=== PATIENT | male | born 1970 | race Caucasian/White ===

== ENCOUNTER 2017-12-01 19:06 | Inpatient (IN) | payer MEDICARE, OTHER ==
[2017-12-01 19:07] VITALS: BMI 27.6
--- NOTE | 2017-12-01 19:50 | ED PDOC ---
HPI: SOB/CHF/COPD Time Seen by Provider: 12/01/17 19:34 Chief Complaint (Nursing): Chest Pain Chief Complaint (Provider): SOB History Per: Patient Additional Complaint(s): 47 yo male, reports a PMH of CHF and notes being on a heart transplant list in [place], presents to ED with complaints of SOB and b/l LE pain x 2 days now. Pt reports pain is worse to LLE. Pt denies any CP or palpitations. No diaphoresis, nausea or vomiting. Pt on monitoring coordinator at bedside, vitals stable while in ED. POX: 100% on RA P: 79 BP: 118/80 Past Medical History Reviewed: Nursing Documentation, Vital Signs Vital Signs: Last Vital Signs Temp 98.4 F 12/01/17 19:30 Pulse 96 H 12/01/17 19:30 Resp 18 12/01/17 19:30 BP 108/78 12/01/17 19:30 Pulse Ox 95 12/01/17 19:30 - Medical History PMH: CHF - Surgical History Surgical History: Pacemaker - Family History Family History: States: Unknown Family Hx - Social History Current smoker - smoking cessation education provided: No Ex-Smoker (has not smoked in the last 12 months): Yes Alcohol: None Drugs: Denies - Allergies Allergies/Adverse Reactions: Allergies Allergy/AdvReac Type Severity Reaction Status Date / Time No Known Allergies Allergy Unverified 12/01/17 19:33 Curb-65 Severity Score - CURB-65 Severity Score Confusion: No Bun >19mg/dl (>7mmol/L): No Respiratory Rate greater than/equal to 30: No Systolic BP <90 or Diastolic BP less than/equal 60mmHg: No Age >64: No Curb-65 Score: 0 Percentage 30-day mortality: 0.6% Wells Criteria for PE - Wells Criteria for Pulmonary Embolism Clinical Signs and Symptoms of DVT: Yes P.E is #1 Diagnosis, or Equally Likely: No Heart Rate >100: No Immobilization at least 3 days;Surgery previous 4 weeks: No Previous, objectively diagnosed PE or DVT: No Hemoptysis: No Malignancy w/treatment within 6 months, or palliative: No Total Score: 3 Review of Systems ROS Statement: Except As Marked, All Systems Reviewed And Found Negative Respiratory: Positive for: Shortness of Breath Physical Exam - Reviewed Nursing Documentation Reviewed: Yes Vital Signs Reviewed: Yes - Physical Exam Appears: Positive for: Non-toxic, No Acute Distress, Uncomfortable Head Exam: Positive for: ATRAUMATIC, NORMAL INSPECTION, NORMOCEPHALIC Skin: Positive for: Normal Color, Warm, DRY Eye Exam: Positive for: EOMI, Normal appearance, PERRL ENT: Positive for: Normal ENT Inspection Neck: Positive for: Normal, Painless ROM Cardiovascular/Chest: Positive for: Regular Rate, Rhythm Respiratory: Positive for: CNT, Normal Breath Sounds Gastrointestinal/Abdominal: Positive for: Normal Exam, Soft Back: Positive for: Normal Inspection Extremity: Positive for: Normal ROM Neurologic/Psych: Positive for: Alert, Oriented - ECG O2 Sat by Pulse Oximetry: 95 Medical Decision Making Medical Decision Making: RX database accessed: No information found Diagnostics ordered and case endorsed to GILL Walters at 2000 pending re-eval Disposition - Clinical Impression Clinical Impression: Chest pain - Patient ED Disposition Is Patient to be Admitted: Transfer of Care - Disposition Disposition: Transfer of Care Disposition Time: 20:06 Condition: STABLE
[2017-12-01 20:33] LABS: BASO # 0.1 K/uL (0.0-0.2); BASO % 1.2 % (0.0-2.0); EOS # 0.1 K/uL (0.0-0.7); EOS % 0.9 % (0.0-4.0); LYMPH % 16.7 % (20.0-40.0); MEAN CORPUSCULAR HEMOGLOBIN 24.6 pg (27.0-31.0); MEAN CORPUSCULAR HGB CONC 31.6 g/dL (33.0-37.0); MEAN PLATELET VOLUME 9.6 fl (7.2-11.7); MONO # 1.1 K/uL (0.0-0.8); MONO % 9.6 % (0.0-10.0); NEUT # 8.5 K/uL (1.8-7.0); NEUT % 71.6 % (50.0-75.0); NRBC % 0.2 % (0.0-0.0); RBC 5.69 Mil/uL (4.40-5.90); RED CELL DISTRIBUTION WIDTH 21.6 % (11.5-14.5); WHITE BLOOD COUNT 11.9 K/uL (4.8-10.8)
[2017-12-01 20:38] LABS: INR 1.5; PROTHROMBIN TIME 17.2 Seconds (9.8-13.1)
[2017-12-01 20:41] LABS: PARTIAL THROMBOPLASTIN TIME 40.3 Seconds (25.6-37.1)
[2017-12-01 20:45] LABS: ALB/GLOB RATIO 0.8 (1.0-2.1); ALBUMIN 4.1 g/dL (3.5-5.0); ALT/SGPT 31 U/L (21-72); AST/SGOT 47 U/L (17-59); BLOOD UREA NITROGEN 22 mg/dl (9-20); CALCIUM 9.5 mg/dL (8.4-10.2); GFR NON-AFRICAN AMERICAN 54
[2017-12-01 20:57] LABS: B-TYPE NATRIURETIC PEPTIDE 3300 pg/ml (0-450)
[2017-12-01 21:01] LABS: BARBITURATES, UR NEGATIVE (NEGATIVE); BENZODIAZEPINES, UR NEGATIVE (NEGATIVE); OPIATES, UR NEGATIVE (NEGATIVE); PHENCYCLIDINE, UR NEGATIVE (NEGATIVE)
--- NOTE | 2017-12-01 21:30 | ED PDOC ---
- Laboratory Results Result Diagrams: 12/01/17 20:25 12/01/17 20:25 - ECG O2 Sat by Pulse Oximetry: 95 - Radiology X-Ray: Viewed By Me X-Ray Interpretation: Cardiomegaly - Progress ED Course And Treament: Case endorsed to global technical writer from Jessica GARLAND pending labs, re-eval CT angio chest ordered fo relevated D Dimer EXAM: CT Angiography Chest With Intravenous Contrast EXAM DATE/TIME: 12/01/2017 9:29 PM CLINICAL HISTORY: 47 years old, male; Signs and symptoms; Shortness of breath; Prior surgery; Surgery date: 6+ months; Additional info: SOB TECHNIQUE: Axial computed tomographic angiography images of the chest with intravenous contrast using CT angiography protocol. All CT scans at this facility use at least one of these dose optimization techniques: automated exposure control; mA and/or kV adjustment per patient size (includes targeted exams where dose is matched to clinical indication); or iterative reconstruction. MIP reconstructed images were created and reviewed. CONTRAST: 100 ml of visipaque-320 administered intravenously. COMPARISON: No relevant prior studies available. FINDINGS: Pulmonary arteries: Normal. No pulmonary emboli. Aorta: Normal. No aortic aneurysm. No aortic dissection. Lungs: Normal. No consolidation. No masses. Pleural space: Normal. No pneumothorax. No pleural effusion. Heart: Cardiomegaly is identified. Bones/joints: Unremarkable. No acute fracture. Soft tissues: Unremarkable. Lymph nodes: There is right paratracheal and AP window mediastinal adenopathy. IMPRESSION: There is no evidence for a pulmonary embolus. There is mediastinal adenopathy. This may be reactive although a malignancy would also be a consideration.Clinical correlation is advised. IV Lasix dose ordered Case discussed with Dr. Baires, Hospitalist on-call, for placement in observation telemetry for CHF exacerbation Disposition - Clinical Impression Clinical Impression: CHF exacerbation - POA Present On Arrival: None - Disposition Disposition: Hospitalized as Observation Patient Disposition Time: 23:59 Condition: FAIR Forms: [employer] (Latvian)
[2017-12-01] MEDS ORDERED: Sodium Chloride 0.9% 50 ML IV ONE (22:28)
[2017-12-01] MEDS ORDERED: Iodixanol 320 MG/ML 100 ML BOTTLE IV ONE (22:28)
--- NOTE | 2017-12-02 02:02 | CP.PCM.HP ---
<Lyndsey Pelayo - Last Filed: 12/02/17 03:03> History of Present Illness - History of Present Illness History of Present Illness: 47 yr old M presented to ED with complaint of worsening SOB and bilateral lower extremity swelling x 1 day. PMHx includes systolic CHF (most recent EF 15%) s/p AICD, HTN, hx recent cutaneous MRSA infection, LLE DVT (took Eliquis 8 months ago). Patient reports he flew in from [place] 4 days ago. Denies any increased sodium or condiment intake in diet, denies increase in baseline fluid intake. Denies chest pain, fevers, chills, nausea, vomiting, weakness or dizziness. Patient states he is on the heart transplant list in [place], but will in [place] until December 2017-possibly will move here. States he is compliant with all his medications. Patient reports chronic yellowing of eyes with negative workup. PMD: patient could not recall-in [place] Adult Care Manager: Edelmira Quezada ([phone])-[place], [place] PMHx: systolic CHF-NYHA class IV/ACC AHA stage D (most recent EF 15%) s/p AICD, HTN, hx recent cutaneous MRSA infection, LLE DVT (took Eliquis 8 months ago), chronic scleral icterus SurgHx: AICD, right ankle arthroscopic surgery FMHx: mother with questionable heart disease, father of prostate cancer at 67yrs old, sibiling healthy, maternal grandmother from [place] at 57yrs old SocHx: former tobacco abuser 15 pack yrs (quit 5 yrs ago); denies Etoh or drugs ; living with mother and brother Medications: Bumetanide 2mg tab PO QD, Digoxin 125 mcg PO QD, Isosorbide dinitrate 20 mg PO TID, Metoprolol Succinate 25mg PO QD, Hydralazine (unknown dose), Milrinone drip (changes bag every 3 days) -will confirm medications with pharmacy in [place] ) Allergies: NKDA Code status: Full code Emergency contact/decision maker: Shreya Zamora (mother) [phone] ER course: BP 108/78 mmHg, HR 96, Temp 98.4 F , Resp rate 18, SpO2 sat 95 % on room air -CBC: WBC 11.9, neutrophil % 71.6; rest wnl -INR 1.5, PT 17.2, PTT 40.3, D-dimer 905 -CMP: BUN 22/Cr 1.4, total bili 4.2, alk phos 178, rest wnl -proBNP 3,300 -Utox negative, troponin 0.04 -EKG: NSR at 98 bpm, right axis deviation, incomplete RBBB, inferior infarct- age undetermined -CXR: official report pending (prelim: cardiomegaly, pulmonary congestion) -CT angio PE protocol: no evidence of PE; there is mediastinbal adenopathy -ER treatment: Alteplase 2mg IV once, Lasix 40mg IV once, Morphine 4mg IV once, Morphine 2mg IV once, Tylenol 650mg PO once Present on Admission - Present on Admission Any Indicators Present on Admission: Yes History of DVT/PE: Yes History of Uncontrolled Diabetes: No Urinary Catheter: No Decubitus Ulcer Present: No History Surgical Site Infection Following: None Review of Systems - Constitutional Constitutional: absent: Chills, Fever, Weakness - EENT Eyes: absent: Change in Vision Nose/Mouth/Throat: absent: Tongue Swelling - Cardiovascular Cardiovascular: Dyspnea, Leg Edema. absent: Chest Pain, Syncope - Respiratory Respiratory: absent: Cough, Hemoptysis, Wheezing - Gastrointestinal Gastrointestinal: absent: Abdominal Pain, Nausea, Vomiting - Genitourinary Genitourinary: absent: Difficulty Urinating, Dysuria - Musculoskeletal Musculoskeletal: Other (chronic bilateral LE pain) - Integumentary Integumentary: Wounds (MRSA wounds healed-arms/neck/abdomen) - Neurological Neurological: absent: Confusion, Dizziness, Syncope, Weakness - Endocrine Endocrine: absent: Polydipsia, Polyphagia, Polyuria - Hematologic/Lymphatic Hematologic: absent: Easy Bleeding, Easy Bruising Past Patient History - Past Social History Smoking Status: Never Smoked - CARDIAC Hx Congestive Heart Failure: Yes Hx Pacemaker: Yes - PSYCHIATRIC Hx Substance Use: No Meds Allergies/Adverse Reactions: Allergies Allergy/AdvReac Type Severity Reaction Status Date / Time No Known Allergies Allergy Unverified 12/01/17 19:33 Physical Exam - Constitutional Appears: No Acute Distress - Head Exam Head Exam: ATRAUMATIC, NORMOCEPHALIC - Eye Exam Eye Exam: EOMI, PERRL, Scleral icterus - ENT Exam ENT Exam: Mucous Membranes Moist - Neck Exam Neck exam: Positive for: Full Rom. Negative for: Lymphadenopathy - Respiratory Exam Respiratory Exam: Clear to Auscultation Bilateral, NORMAL BREATHING PATTERN. absent: Rales, Rhonchi, Wheezes - Cardiovascular Exam Cardiovascular Exam: REGULAR RHYTHM, +S1, +S2. absent: Systolic Murmur - GI/Abdominal Exam GI & Abdominal Exam: Normal Bowel Sounds, Soft (obese). absent: Tenderness Additional comments: multiple healed small hyperpigmented papules - Extremities Exam Extremities exam: Positive for: pedal edema (pitting +2), pedal pulses present ( DP and PT bilateral-normal). Negative for: calf tenderness, tenderness - Neurological Exam Neurological exam: Alert, CN II-XII Intact, Oriented x3 - Psychiatric Exam Psychiatric exam: Normal Affect, Normal Mood - Skin Skin Exam: Dry, Rash (healed hyperpigmented papular rash (neck/abdomen and arms) ), Warm Results - Vital Signs Recent Vital Signs: Last Vital Signs Temp 98.9 F 12/02/17 00:34 Pulse 98 H 12/02/17 00:34 Resp 18 12/02/17 00:34 BP 124/78 12/02/17 00:34 Pulse Ox 93 L 12/02/17 00:34 - Labs Result Diagrams: 12/01/17 20:25 12/01/17 20:25 Labs: Laboratory Results - last 24 hr 12/01/17 12/01/17 12/01/17 20:25 20:25 20:25 WBC 11.9 H RBC 5.69 Hgb 14.0 Hct 44.4 MCV 78.0 L MCH 24.6 L MCHC 31.6 L RDW 21.6 H Plt Count 264 MPV 9.6 Neut % (Auto) 71.6 Lymph % (Auto) 16.7 L [place] % (Auto) 9.6 Eos % (Auto) 0.9 Baso % (Auto) 1.2 Neut # (Auto) 8.5 H Lymph # (Auto) 2.0 [place] # (Auto) 1.1 H Eos # (Auto) 0.1 Baso # (Auto) 0.1 PT 17.2 H INR 1.5 APTT 40.3 H D-Dimer, Quantitative 905 H Sodium 140 Potassium 5.0 Chloride 107 Carbon Dioxide 18 L Anion Gap 20 BUN 22 H Creatinine 1.4 Est GFR ( Amer) > 60 Est GFR (Non-Af Amer) 54 Random Glucose 120 H Calcium 9.5 Total Bilirubin 4.2 H AST 47 ALT 31 Alkaline Phosphatase 178 H Troponin I 0.0440 NT-Pro-B Natriuret Pep 3300 H Total Protein 9.0 H Albumin 4.1 Globulin 4.9 H Albumin/Globulin Ratio 0.8 L Urine Opiates Screen Urine Methadone Screen Ur Barbiturates Screen Ur Phencyclidine Scrn Ur Amphetamines Screen U Benzodiazepines Scrn U Oth Cocaine Metabols U Cannabinoids Screen 12/01/17 20:30 WBC RBC Hgb Hct MCV MCH MCHC RDW Plt Count MPV Neut % (Auto) Lymph % (Auto) [place] % (Auto) Eos % (Auto) Baso % (Auto) Neut # (Auto) Lymph # (Auto) [place] # (Auto) Eos # (Auto) Baso # (Auto) PT INR APTT D-Dimer, Quantitative Sodium Potassium Chloride Carbon Dioxide Anion Gap BUN Creatinine Est GFR ( Amer) Est GFR (Non-Af Amer) Random Glucose Calcium Total Bilirubin AST ALT Alkaline Phosphatase Troponin I NT-Pro-B Natriuret Pep Total Protein Albumin Globulin Albumin/Globulin Ratio Urine Opiates Screen Negative Urine Methadone Screen Negative Ur Barbiturates Screen Negative Ur Phencyclidine Scrn Negative Ur Amphetamines Screen Negative U Benzodiazepines Scrn Negative U Oth Cocaine Metabols Negative U Cannabinoids Screen Negative Assessment & Plan - Assessment and Plan (Free Text) Assessment: 47 yr old M admitted for CHF exacerbation with PMHx including systolic CHF-NYHA class IV/ACC AHA stage D (most recent EF 15%) s/p AICD, HTN, hx recent cutaneous MRSA infection, LLE DVT (took Eliquis 8 months ago), chronic scleral icterus. Acute CHF exacerbation-systolic -hx systolic CHF NYHA class IV/ACC AHA stage D (most recent EF 15%); unknown etiology per patient: on heart transplant list in [place] -admit to telemetry -continue home medications (will confirm medications with pharmacy in [place] in AM) -Lasix 20mg IV QD, daily weight, f/u echocardiogram -Cardiology consult appreciated: Dr. Victor -heart healthy/low sodium/1250 mL fluid restricted diet Hypertension -chronic, controlled -continue home medications -monitor BP DVT prophylaxis -Lovenox 40 mg SC QD - Date & Time Date: 12/02/17 Time: 02:02 <Tim Baires - Last Filed: 12/02/17 05:04> Results - Vital Signs Recent Vital Signs: Last Vital Signs Temp 97 F L 12/02/17 02:30 Pulse 105 H 12/02/17 03:52 Resp 12 12/02/17 03:13 BP 126/82 12/02/17 03:52 Pulse Ox 95 12/02/17 03:13 - Labs Result Diagrams: 12/01/17 20:25 12/01/17 20:25 Labs: Laboratory Results - last 24 hr 12/01/17 12/01/17 12/01/17 20:25 20:25 20:25 WBC 11.9 H RBC 5.69 Hgb 14.0 Hct 44.4 MCV 78.0 L MCH 24.6 L MCHC 31.6 L RDW 21.6 H Plt Count 264 MPV 9.6 Neut % (Auto) 71.6 Lymph % (Auto) 16.7 L [place] % (Auto) 9.6 Eos % (Auto) 0.9 Baso % (Auto) 1.2 Neut # (Auto) 8.5 H Lymph # (Auto) 2.0 [place] # (Auto) 1.1 H Eos # (Auto) 0.1 Baso # (Auto) 0.1 PT 17.2 H INR 1.5 APTT 40.3 H D-Dimer, Quantitative 905 H Sodium 140 Potassium 5.0 Chloride 107 Carbon Dioxide 18 L Anion Gap 20 BUN 22 H Creatinine 1.4 Est GFR ( Amer) > 60 Est GFR (Non-Af Amer) 54 Random Glucose 120 H Calcium 9.5 Total Bilirubin 4.2 H AST 47 ALT 31 Alkaline Phosphatase 178 H Troponin I 0.0440 NT-Pro-B Natriuret Pep 3300 H Total Protein 9.0 H Albumin 4.1 Globulin 4.9 H Albumin/Globulin Ratio 0.8 L Urine Opiates Screen Urine Methadone Screen Ur Barbiturates Screen Ur Phencyclidine Scrn Ur Amphetamines Screen U Benzodiazepines Scrn U Oth Cocaine Metabols U Cannabinoids Screen 12/01/17 12/02/17 20:30 03:46 WBC RBC Hgb Hct MCV MCH MCHC RDW Plt Count MPV Neut % (Auto) Lymph % (Auto) [place] % (Auto) Eos % (Auto) Baso % (Auto) Neut # (Auto) Lymph # (Auto) [place] # (Auto) Eos # (Auto) Baso # (Auto) PT INR APTT D-Dimer, Quantitative Sodium Potassium Chloride Carbon Dioxide Anion Gap BUN Creatinine Est GFR ( Amer) Est GFR (Non-Af Amer) Random Glucose Calcium Total Bilirubin AST ALT Alkaline Phosphatase Troponin I 0.0430 NT-Pro-B Natriuret Pep Total Protein Albumin Globulin Albumin/Globulin Ratio Urine Opiates Screen Negative Urine Methadone Screen Negative Ur Barbiturates Screen Negative Ur Phencyclidine Scrn Negative Ur Amphetamines Screen Negative U Benzodiazepines Scrn Negative U Oth Cocaine Metabols Negative U Cannabinoids Screen Negative Attending/Attestation - Attestation I have personally seen and examined this patient.: Yes I have fully participated in the care of the patient.: Yes I have reviewed all pertinent clinical information: Yes Notes (Text): 12/02/17 04:23 I saw and examined this patient shoulder to shoulder with Dr Pelayo. I agree with the assessment and plan which represent my direct input. This is a 47 years old male recent from [place], with End Stage Heart Failure who says that his EF of 15% and that he is on the Heart Transplant list there in [place]. He comes with SOB Palpitation and chest pain for 24hrs along with painful lower extremities, L>R. A&P #. Chest pain most likely from his cardiomyopathy r/o ACS - Consult Cardiology Dr Victor - ECHO for Wall motion - Serial Troponin - Serial EKG - Aspirin #. End Stage Heart Failure with a systolic dysfunction - Cardiology on consult - ECHO for EF, Chamber Size - Continue Milrinone( Consult Pharmacy on the priscription for the Milrinone being usedby Patient) - Metoprolol - Isosorbide Dinitrate - Bumex - Digoxin #. DVT Prophylaxis with Lovenox #. Code Status: Full 12/02/17 05:02 12/02/17 05:04
[2017-12-02] MEDS ORDERED: Pneumococcal 23-Valent Vaccine IM ONE (06:18)
[2017-12-02] MEDS ORDERED: BUMETANIDE 2 MG PO SCH (09:00)
[2017-12-02] MEDS: Digoxin 125 mcg (0.125 mg) Tab PO SCH (09:16)
[2017-12-02] MEDS: Metoprolol Succinate 25 mg XL Tab PO SCH (09:17)
[2017-12-02] MEDS: Enoxaparin 40 mg Syringe SC SCH (09:17)
--- NOTE | 2017-12-02 09:44 | CP.PCM.CON ---
History of Present Illness - History of Present Illness History of Present Illness: 47 yr old M presented to ED with complaint of worsening SOB and bilateral lower extremity swelling x 1 day. PMHx includes systolic CHF (most recent EF 15%) s/p AICD, HTN, hx recent cutaneous MRSA infection, LLE DVT (took Eliquis 8 months ago). Patient reports he flew in from [place] 4 days ago. Denies any increased sodium or condiment intake in diet, denies increase in baseline fluid intake. Denies chest pain, fevers, chills, nausea, vomiting, weakness or dizziness. Patient states he is on the heart transplant list in [place], but will in [place] until December 2017-possibly will move here. States he is compliant with all his medications. Patient reports chronic yellowing of eyes with negative workup. Troponin: neg x 2 BNP: 3300 EKG: IRBBB ?old IWMI Review of Systems - Cardiovascular Cardiovascular: Dyspnea on Exertion, Edema Past Patient History - Infectious Disease Hx of Infectious Diseases: MRSA - Past Medical History & Family History Past Medical History?: Yes - Past Social History Smoking Status: Never Smoked - CARDIAC Hx Cardiac Disorders: Yes Hx Congestive Heart Failure: Yes Hx Pacemaker: Yes - PULMONARY Hx Respiratory Disorders: No - NEUROLOGICAL Hx Neurological Disorder: No - HEENT Hx HEENT Problems: No - RENAL Hx Chronic Kidney Disease: No - ENDOCRINE/METABOLIC Hx Endocrine Disorders: No - HEMATOLOGICAL/ONCOLOGICAL Hx Blood Disorders: No Hx AIDS: No Hx Human Immunodeficiency Virus (HIV): No - INTEGUMENTARY Hx Dermatological Problems: No - MUSCULOSKELETAL/RHEUMATOLOGICAL Hx Musculoskeletal Disorders: No Hx Falls: No - GASTROINTESTINAL Hx Gastrointestinal Disorders: No - GENITOURINARY/GYNECOLOGICAL Hx Genitourinary Disorders: No - PSYCHIATRIC Hx Substance Use: No - SURGICAL HISTORY Hx Surgeries: Yes Hx Orthopedic Surgery: Yes - ANESTHESIA Hx Anesthesia: Yes Hx Anesthesia Reactions: No Hx Malignant Hyperthermia: No Has any member of the family had a problem w/ anesthesia?: No Meds Allergies/Adverse Reactions: Allergies Allergy/AdvReac Type Severity Reaction Status Date / Time No Known Allergies Allergy Unverified 12/01/17 19:33 - Medications Medications: Current Medications Acetaminophen (Tylenol 325mg Tab) 650 mg PO Q6 PRN PRN Reason: Pain, Mild (1-3) Bumetanide (Bumex) 2 mg PO DAILY [facility] Last Admin: 12/02/17 09:17 Dose: 2 mg Digoxin (Digoxin) 0.125 mg PO DAILY [facility] Last Admin: 12/02/17 09:16 Dose: 0.125 mg Enoxaparin Sodium (Lovenox) 40 mg SC DAILY [facility] PRN Reason: Protocol Last Admin: 12/02/17 09:17 Dose: 40 mg Furosemide (Lasix) 20 mg IVP DAILY [facility] Last Admin: 12/02/17 09:12 Dose: 20 mg Isosorbide Dinitrate (Isordil) 20 mg PO TID [facility] Last Admin: 12/02/17 09:16 Dose: 20 mg Ketorolac Tromethamine (Toradol) 30 mg IVP Q6 PRN PRN Reason: Pain, severe (8-10) Last Admin: 12/02/17 09:08 Dose: 30 mg Ketorolac Tromethamine (Toradol) 15 mg IVP Q6 PRN PRN Reason: Pain, moderate (4-7) Metoprolol Succinate (Toprol Xl) 25 mg PO DAILY [facility] Last Admin: 12/02/17 09:17 Dose: 25 mg Physical Exam - Head Exam Head Exam: NORMAL INSPECTION - Eye Exam Eye Exam: Normal appearance - ENT Exam ENT Exam: Normal Exam - Respiratory Exam Respiratory Exam: Decreased Breath Sounds, NORMAL BREATHING PATTERN - Cardiovascular Exam Cardiovascular Exam: REGULAR RHYTHM - Extremities Exam Extremities exam: Positive for: pedal edema Results - Vital Signs Recent Vital Signs: Last Vital Signs Temp 97 F L 12/02/17 08:00 Pulse 89 12/02/17 09:17 Resp 20 12/02/17 08:00 BP 123/62 12/02/17 09:17 Pulse Ox 97 12/02/17 08:00 - Labs Result Diagrams: 12/01/17 20:25 12/01/17 20:25 Labs: Laboratory Results - last 24 hr 12/01/17 12/01/17 12/01/17 20:25 20:25 20:25 WBC 11.9 H RBC 5.69 Hgb 14.0 Hct 44.4 MCV 78.0 L MCH 24.6 L MCHC 31.6 L RDW 21.6 H Plt Count 264 MPV 9.6 Neut % (Auto) 71.6 Lymph % (Auto) 16.7 L [place] % (Auto) 9.6 Eos % (Auto) 0.9 Baso % (Auto) 1.2 Neut # (Auto) 8.5 H Lymph # (Auto) 2.0 [place] # (Auto) 1.1 H Eos # (Auto) 0.1 Baso # (Auto) 0.1 PT 17.2 H INR 1.5 APTT 40.3 H D-Dimer, Quantitative 905 H Sodium 140 Potassium 5.0 Chloride 107 Carbon Dioxide 18 L Anion Gap 20 BUN 22 H Creatinine 1.4 Est GFR ( Amer) > 60 Est GFR (Non-Af Amer) 54 Random Glucose 120 H Calcium 9.5 Total Bilirubin 4.2 H AST 47 ALT 31 Alkaline Phosphatase 178 H Troponin I 0.0440 NT-Pro-B Natriuret Pep 3300 H Total Protein 9.0 H Albumin 4.1 Globulin 4.9 H Albumin/Globulin Ratio 0.8 L Digoxin Urine Opiates Screen Urine Methadone Screen Ur Barbiturates Screen Ur Phencyclidine Scrn Ur Amphetamines Screen U Benzodiazepines Scrn U Oth Cocaine Metabols U Cannabinoids Screen 12/01/17 12/02/17 12/02/17 20:30 03:46 08:00 WBC RBC Hgb Hct MCV MCH MCHC RDW Plt Count MPV Neut % (Auto) Lymph % (Auto) [place] % (Auto) Eos % (Auto) Baso % (Auto) Neut # (Auto) Lymph # (Auto) [place] # (Auto) Eos # (Auto) Baso # (Auto) PT INR APTT D-Dimer, Quantitative Sodium Potassium Chloride Carbon Dioxide Anion Gap BUN Creatinine Est GFR ( Amer) Est GFR (Non-Af Amer) Random Glucose Calcium Total Bilirubin AST ALT Alkaline Phosphatase Troponin I 0.0430 0.0570 NT-Pro-B Natriuret Pep Total Protein Albumin Globulin Albumin/Globulin Ratio Digoxin Urine Opiates Screen Negative Urine Methadone Screen Negative Ur Barbiturates Screen Negative Ur Phencyclidine Scrn Negative Ur Amphetamines Screen Negative U Benzodiazepines Scrn Negative U Oth Cocaine Metabols Negative U Cannabinoids Screen Negative 12/02/17 08:00 WBC RBC Hgb Hct MCV MCH MCHC RDW Plt Count MPV Neut % (Auto) Lymph % (Auto) [place] % (Auto) Eos % (Auto) Baso % (Auto) Neut # (Auto) Lymph # (Auto) [place] # (Auto) Eos # (Auto) Baso # (Auto) PT INR APTT D-Dimer, Quantitative Sodium Potassium Chloride Carbon Dioxide Anion Gap BUN Creatinine Est GFR ( Amer) Est GFR (Non-Af Amer) Random Glucose Calcium Total Bilirubin AST ALT Alkaline Phosphatase Troponin I NT-Pro-B Natriuret Pep Total Protein Albumin Globulin Albumin/Globulin Ratio Digoxin < 0.4 L Urine Opiates Screen Urine Methadone Screen Ur Barbiturates Screen Ur Phencyclidine Scrn Ur Amphetamines Screen U Benzodiazepines Scrn U Oth Cocaine Metabols U Cannabinoids Screen Assessment & Plan (1) Acute on chronic systolic congestive heart failure Assessment and Plan: pt reports he is on transplant list in [place] will get Echo Status: Acute (2) Essential (primary) hypertension Status: Acute (3) DVT (deep venous thrombosis) Status: Acute (4) Hyperbilirubinemia Status: Acute
--- NOTE | 2017-12-02 09:44 | RAD ---
Date of service: 12/01/2017 PROCEDURE: CHEST RADIOGRAPH, 1 VIEW HISTORY: SOB COMPARISON: 01/27/2013 FINDINGS: LUNGS: Clear. PLEURA: No pneumothorax or pleural fluid seen. CARDIOVASCULAR: Heart is moderately enlarged. There is a new right subclavian vein catheter with its tip in the superior vena cava. OSSEOUS STRUCTURES: No significant abnormalities. VISUALIZED UPPER ABDOMEN: Normal. OTHER FINDINGS: None. IMPRESSION: No focal infiltrate or CHF. Moderate cardiomegaly.
--- NOTE | 2017-12-02 10:00 | CARD ---
APPROVED REPORT Date of service: 12/01/2017 EKG Measurement Heart [id number] <Conclusion> Normal sinus rhythm Possible Left atrial enlargement Right superior axis deviation Incomplete right bundle branch block Inferior infarct, age undetermined Prolonged QT Abnormal ECG
--- NOTE | 2017-12-02 12:13 | CT ---
Date of service: 12/01/2017 PROCEDURE: CT Chest with contrast (Pulmonary Angiogram) HISTORY: SOB COMPARISON: None available. TECHNIQUE: Axial computed tomography images were obtained of the chest in the pulmonary arterial phase of enhancement. Coronal and sagittal reformatted images were created and reviewed. Intravenous contrast dose: 100 milliliters visi opaque Radiation dose: Total exam DLP = 363 mGy-cm. This CT exam was performed using one or more of the following dose reduction techniques: Automated exposure control, adjustment of the mA and/or kV according to patient size, and/or use of iterative reconstruction technique. FINDINGS: PULMONARY ARTERIES: No filling defect within the pulmonary arteries is seen to suggest pulmonary artery embolism. AORTA: Aorta is limited by injection timing although no intramural hematoma or intimal flap is clearly seen. LUNGS: Mild interstitial changes and dependent atelectasis are seen. Minor amount of interlobular thickening is seen in the left upper lobe on axial images 39. A few tiny 2 millimeter subpleural nodules are seen in the right upper lobe on image 67. No alveolar infiltrate to suggest an infectious process is seen. No endobronchial lesion is noted. PLEURAL SPACES: Unremarkable. No effusion or pneumothorax. HEART: Heart is moderately enlarged. LYMPH NODES: There is evidence of right paratracheal, precarinal, left para tracheal and prevascular mildly enlarged lymph nodes. These may be reactive in origin but will require further clinical follow-up. No enlarged hilar lymph nodes subcarinal lymph nodes are clearly seen. BONES, CHEST WALL: Bony thorax is intact. No compression fractures seen in the spine. OTHER FINDINGS: Images of the upper abdomen are limited by contrast injection. No focal mass is noted. No ascites is seen. IMPRESSION: No CT scan evidence of pulmonary embolism. Nonspecific mediastinal adenopathy, possibly reactive in origin although will require further clinical follow-up. Short interval follow-up CT scan may prove helpful. Mild interstitial change without focal infiltrate. A few tiny scattered 2 millimeters subpleural nodules. These may postinflammatory in origin. No further imaging workup of these would be suggested in a low risk patient. This agrees with preliminary report provided by the on-call radiologist.
[2017-12-02] MEDS: Sucralfate 1 gm/10 ml Oral Susp UD PO SCH ×4 (14:13→21:26)
--- NOTE | 2017-12-02 14:23 | US ---
Date of service: 12/02/2017 PROCEDURE: Bilateral lower extremity venous duplex Doppler. HISTORY: LE pain, hx DVT COMPARISON: None available. TECHNIQUE: Bilateral common femoral, superficial femoral, popliteal and posterior tibial veins were evaluated. Flow was assessed with color Doppler, compressibility, assessment of phasic flow and augmentation response. FINDINGS: COMMON FEMORAL VEIN: Right CFV: Unremarkable. Left CFV: Unremarkable. SUPERFICIAL FEMORAL VEIN: Right SFV: Unremarkable. Left SFV: Unremarkable. POPLITEAL VEIN: Right Popliteal: Unremarkable. Left Popliteal: Unremarkable. POSTERIOR TIBIAL VEIN: Right PTV: Unremarkable. Left PTV: Unremarkable. OTHER FINDINGS: There is evidence of a mildly complex popliteal fossa cyst measuring 4 centimeters x 1.5 centimeters. Calf edema is also identified on the left. IMPRESSION: No appreciable deep vein thrombosis. No prior studies available for comparison. Lower calf leg swelling.
[2017-12-02 17:18] LABS: HIV 1&2 ANTIBODY NEGATIVE (NEGATIVE)
[2017-12-03 06:39] LABS: CALCIUM 8.8 mg/dL (8.4-10.2)
[2017-12-03] MEDS: Digoxin 125 mcg (0.125 mg) Tab PO SCH (09:45)
[2017-12-03] MEDS: Sucralfate 1 gm/10 ml Oral Susp UD PO SCH ×4 (09:45→21:37)
[2017-12-03] MEDS: Metoprolol Succinate 25 mg XL Tab PO SCH (09:45)
[2017-12-03] MEDS: Enoxaparin 40 mg Syringe SC SCH (09:45)
--- NOTE | 2017-12-03 10:31 | CP.PCM.PN ---
<Laughlin - Last Filed: 12/03/17 12:01> Subjective - Date & Time of Evaluation Date of Evaluation: 12/03/17 Time of Evaluation: 08:40 - Subjective Subjective: Patient seen and examined this morning. Pt still reports shortness of breath and some LE pain. Denies chest pain, headache, dizziness,abdominal pain, nausea , vomiting or cough. Tolerating PO. Regular BM and + voiding. No other complaints. Objective - Vital Signs/Intake and Output Vital Signs (last 24 hours): Temp Pulse Resp BP Pulse Ox 97.4 F L 88 24 109/76 99 12/03/17 09:16 12/03/17 09:45 12/03/17 09:16 12/03/17 09:45 12/03/17 09:16 - Medications Medications: Current Medications Acetaminophen (Tylenol 325mg Tab) 650 mg PO Q6 PRN PRN Reason: Pain, Mild (1-3) Bumetanide (Bumex) 2 mg PO DAILY [facility] Last Admin: 12/03/17 09:45 Dose: 2 mg Digoxin (Digoxin) 0.125 mg PO DAILY [facility] Last Admin: 12/03/17 09:45 Dose: 0.125 mg Enoxaparin Sodium (Lovenox) 40 mg SC DAILY [facility] PRN Reason: Protocol Last Admin: 12/03/17 09:45 Dose: 40 mg Furosemide (Lasix) 40 mg IV BID [facility] Last Admin: 12/03/17 09:44 Dose: 40 mg Isosorbide Dinitrate (Isordil) 20 mg PO TID [facility] Last Admin: 12/03/17 09:45 Dose: 20 mg Metoprolol Succinate (Toprol Xl) 25 mg PO DAILY [facility] Last Admin: 12/03/17 09:45 Dose: 25 mg Sucralfate (Carafate Oral Susp) 1 gm PO QID [facility] Last Admin: 12/03/17 09:45 Dose: 1 gm Tramadol HCl (Ultram) 50 mg PO Q6 PRN PRN Reason: Pain, moderate (4-7) Last Admin: 12/03/17 09:44 Dose: 50 mg - Labs Labs: 12/01/17 20:25 12/03/17 06:15 PT 17.2 Seconds (9.8-13.1) H 12/01/17 20:25 INR 1.5 12/01/17 20:25 APTT 40.3 Seconds (25.6-37.1) H 12/01/17 20:25 - Constitutional Appears: Non-toxic, No Acute Distress - Head Exam Head Exam: ATRAUMATIC, NORMAL INSPECTION - Eye Exam Eye Exam: EOMI, Normal appearance, Scleral icterus - ENT Exam ENT Exam: Mucous Membranes Moist - Neck Exam Additional comments: + JVP elevation on right side - Respiratory Exam Respiratory Exam: NORMAL BREATHING PATTERN. absent: Accessory Muscle Use, Wheezes, Respiratory Distress Additional comments: crackles on B/L lower lung field - Cardiovascular Exam Cardiovascular Exam: REGULAR RHYTHM, +S1, +S2 - GI/Abdominal Exam GI & Abdominal Exam: Soft, Normal Bowel Sounds. absent: Tenderness, Rebound - Extremities Exam Extremities Exam: Normal Capillary Refill, Pedal Edema (2+). absent: Calf Tenderness - Neurological Exam Neurological Exam: Alert, Awake, Oriented x3 - Psychiatric Exam Psychiatric exam: Normal Affect, Normal Mood - Skin Skin Exam: Normal Color, Warm Assessment and Plan - Assessment and Plan (Free Text) Assessment: Assessment: 47 yr old M admitted for CHF exacerbation with PMHx including systolic CHF-NYHA class IV/ACC AHA stage D (most recent EF 15%) s/p AICD, HTN, hx recent cutaneous MRSA infection, LLE DVT (took Eliquis 8 months ago), chronic scleral icterus. Acute CHF exacerbation-systolic -hx systolic CHF NYHA class IV/ACC AHA stage D (most recent EF 15%); unknown etiology per patient: on heart transplant list in [place] -admit to telemetry -Project Management Consultant Dr. Lugo on board -f/u echocardiogram -C/w home medications -Increase Lasix to 40mg IVPB q12, daily weight. -heart healthy/low sodium/1250 mL fluid restricted diet Lower extremity pain -B/L LE duplex US: Negative for DVT -Change pain medication to percocet 5/325 mg po q6hr prn Acute kidney injury -BUN/Cr: 47/2.3, eGFR 30 -Monitor, avoid nephrotoxic agent Hypertension -chronic, controlled -continue home medications -monitor BP DVT prophylaxis -Lovenox 40 mg SC QD <Cherry Oconnor - Last Filed: 12/03/17 15:30> Objective - Vital Signs/Intake and Output Vital Signs (last 24 hours): Temp Pulse Resp BP Pulse Ox 96.9 F L 68 20 101/75 98 12/03/17 12:56 12/03/17 12:56 12/03/17 12:56 12/03/17 12:56 12/03/17 12:56 - Medications Medications: Current Medications Acetaminophen (Tylenol 325mg Tab) 650 mg PO Q6 PRN PRN Reason: Pain, Mild (1-3) Bumetanide (Bumex) 2 mg PO DAILY [facility] Last Admin: 12/03/17 09:45 Dose: 2 mg Digoxin (Digoxin) 0.125 mg PO DAILY [facility] Last Admin: 12/03/17 09:45 Dose: 0.125 mg Enoxaparin Sodium (Lovenox) 40 mg SC DAILY [facility] PRN Reason: Protocol Last Admin: 12/03/17 09:45 Dose: 40 mg Furosemide (Lasix) 40 mg IV BID [facility] Last Admin: 12/03/17 09:44 Dose: 40 mg Milrinone Lactate/Dextrose (Primacor 20mg/100ml D5w) 100 mls @ 11.482 mls/hr IV .Q8H43M [facility]; 0.375 MCG/KG/MIN PRN Reason: Protocol Isosorbide Dinitrate (Isordil) 20 mg PO TID [facility] Last Admin: 12/03/17 12:51 Dose: 20 mg Metoprolol Succinate (Toprol Xl) 25 mg PO DAILY [facility] Last Admin: 12/03/17 09:45 Dose: 25 mg Morphine Sulfate (Morphine) 2 mg IVP Q4 PRN PRN Reason: Pain, moderate (4-7) Sucralfate (Carafate Oral Susp) 1 gm PO QID [facility] Last Admin: 12/03/17 12:51 Dose: 1 gm - Labs Labs: 12/01/17 20:25 12/03/17 06:15 PT 17.2 Seconds (9.8-13.1) H 12/01/17 20:25 INR 1.5 12/01/17 20:25 APTT 40.3 Seconds (25.6-37.1) H 12/01/17 20:25 Attending/Attestation - Attestation I have personally seen and examined this patient.: Yes I have fully participated in the care of the patient.: Yes I have reviewed all pertinent clinical information, including history, physical exam and plan: Yes Notes (Text): Additional Note: Pt admitted , still decompensated, SOB, Leg edema, + JVD. Acute Kidney Injury on CKD stage III - pt states he has a hx of CKD - his Crea usually goes up then back to his baseline of about 1.4 - likely due to CHF, low EF,CO, diuretics - cont Milrinone drip - keep at 0.375mcg/kg/min ( dose confirmed with [facility] on ) - decrease Lasix to 40 mg IV daily Case Mgt consulted to arrange for continuous Home Milrinone drip Cardio consulted - discussed case with Dr Magdy Victor
[2017-12-03] MEDS ORDERED: Milrinone 20mg/100ml D5W 100 ML IV SCH ×3 (11:15→16:49)
[2017-12-03] MEDS ORDERED: Oxycodone/Acetaminophen 5/325 mg Tab PO PRN (12:03)
--- NOTE | 2017-12-03 14:37 | CARD ---
APPROVED REPORT Date of service: 12/03/2017 EXAM: Two-dimensional and M-mode echocardiogram with Doppler and color Doppler. Other Information Quality : AverageRhythm : NSR INDICATION Congestive Heart Failure 2D DIMENSIONS IVSd1.10 (0.7-1.1cm)LVDd6.50 (3.9-5.9cm) LVOT Diameter2.27 (1.8-2.4cm)PWd1.31 (0.7-1.1cm) IVSs1.10 (0.8-1.2cm)LVDs5.43 (2.5-4.0cm) FS (%) 13.6 %PWs1.40 (0.8-1.2cm) M-Mode DIMENSIONS Left Atrium (MM)5.33 (2.5-4.0cm)IVSd0.81 (0.7-1.1cm) Aortic Root2.79 (2.2-3.7cm)Aortic Cusp Exc.1.99 (1.5-2.0cm) PWd0.92 (0.7-1.1cm)IVSs0.96 cm FS (%) 11 %PWs1.14 cm Mitral Valve E/A ratio0.0 TDI E/Lateral E'0.0E/Medial E'0.0 Tricuspid Valve TR Peak [id number] [id number] Peak Gr.25mmHg [id number] LEFT VENTRICLE The left ventricle is moderately dilated There is normal left ventricular wall thickness. There is profound global LV systolic dysfunction The estimated ejection fraction is 10-15% No regional wall motion abnormalities noted.. The left ventricular diastolic function is normal. No left ventricle thrombus noted on this study. There is no ventricular septal defect visualized. There is no mass noted in the left ventricle. RIGHT VENTRICLE The right ventricle is normal size. There is normal right ventricular wall thickness. The right ventricular systolic function is hypokinetic Suspect RV pacemaker lead present ATRIA The left atrium size is moderately dilated The right atrium size is normal. RA pacemaker lead not clearly seen, but patient in NSR The interatrial septum is intact with no evidence for an atrial septal defect. AORTIC VALVE The aortic valve is normal in structure. No aortic regurgitation is present. There is no aortic valvular stenosis. MITRAL VALVE The mitral valve is normal in structure. There is no mitral valve stenosis. There is mild mitral valve regurgitation noted. TRICUSPID VALVE The tricuspid valve is normal in structure. There is mild tricuspid valve regurgitation noted. PASP within normal limits PULMONIC VALVE The pulmonary valve is normal in structure. There is no pulmonic valvular regurgitation. GREAT VESSELS The aortic root is normal in size. The ascending aorta is normal in size. The pulmonary artery is normal. The IVC is normal in size and collapses >50% with inspiration. PERICARDIAL EFFUSION There is no pericardial effusion. <Conclusion> Mild mitral insufficiency Mild TR with normal PASP Dilated LA and LV Pprofound global LV systolic dysfunction The estimated ejection fraction is 10-15% Suspect right heart pacemaker leads: clinical correlation advised
[2017-12-03] MEDS: Milrinone 20mg/100ml D5W 100 ML IV SCH (17:22)
[2017-12-04] MEDS: Milrinone 20mg/100ml D5W 100 ML IV SCH ×2 (00:38→09:02)
[2017-12-04 06:46] LABS: HEMOGLOBIN 12.5 g/dL (12.0-18.0); MEAN CELL VOLUME 76.3 fl (80.0-94.0); MEAN CORPUSCULAR HEMOGLOBIN 24.9 pg (27.0-31.0); MEAN CORPUSCULAR HGB CONC 32.7 g/dL (33.0-37.0); RED CELL DISTRIBUTION WIDTH 21.3 % (11.5-14.5); WHITE BLOOD COUNT 9.6 K/uL (4.8-10.8)
[2017-12-04 07:12] LABS: CALCIUM 8.8 mg/dL (8.4-10.2)
[2017-12-04] MEDS ORDERED: Metoprolol Succinate 25 mg XL Tab PO SCH (07:33)
[2017-12-04] MEDS: Sucralfate 1 gm/10 ml Oral Susp UD PO SCH ×2 (09:04→14:43)
[2017-12-04] MEDS: Digoxin 125 mcg (0.125 mg) Tab PO SCH (09:04)
[2017-12-04] MEDS: Enoxaparin 40 mg Syringe SC SCH (09:05)
[2017-12-04 09:06] VITALS: PULSE 94
[2017-12-04 12:45] VITALS: O2SAT 100
--- NOTE | 2017-12-04 13:15 | CP.PCM.DIS ---
<[place] - Last Filed: 12/04/17 15:15> Provider - Provider Date of Admission: 12/03/17 10:40 Attending physician: Tim Baires Time Spent in preparation of Discharge (in minutes): 35 Diagnosis - Discharge Diagnosis (1) Acute on chronic systolic congestive heart failure Status: Resolved (2) CHF exacerbation Status: Resolved (3) Essential (primary) hypertension Status: Chronic (4) Hyperbilirubinemia Status: Chronic Hospital Course - Lab Results Lab Results: Most Recent Lab Values WBC 9.6 K/uL (4.8-10.8) 12/04/17 06:42 RBC 5.00 Mil/uL (4.40-5.90) 12/04/17 06:42 Hgb 12.5 g/dL (12.0-18.0) 12/04/17 06:42 Hct 38.1 % (35.0-51.0) 12/04/17 06:42 MCV 76.3 fl (80.0-94.0) L 12/04/17 06:42 MCH 24.9 pg (27.0-31.0) L 12/04/17 06:42 MCHC 32.7 g/dL (33.0-37.0) L 12/04/17 06:42 RDW 21.3 % (11.5-14.5) H 12/04/17 06:42 Plt Count 248 K/uL (130-400) 12/04/17 06:42 MPV 9.6 fl (7.2-11.7) 12/01/17 20:25 Neut % (Auto) 71.6 % (50.0-75.0) 12/01/17 20:25 Lymph % (Auto) 16.7 % (20.0-40.0) L 12/01/17 20:25 [place] % (Auto) 9.6 % (0.0-10.0) 12/01/17 20:25 Eos % (Auto) 0.9 % (0.0-4.0) 12/01/17 20:25 Baso % (Auto) 1.2 % (0.0-2.0) 12/01/17 20:25 Neut # (Auto) 8.5 K/uL (1.8-7.0) H 12/01/17 20:25 Lymph # (Auto) 2.0 K/uL (1.0-4.3) 12/01/17 20:25 [place] # (Auto) 1.1 K/uL (0.0-0.8) H 12/01/17 20:25 Eos # (Auto) 0.1 K/uL (0.0-0.7) 12/01/17 20:25 Baso # (Auto) 0.1 K/uL (0.0-0.2) 12/01/17 20:25 PT 17.2 Seconds (9.8-13.1) H 12/01/17 20:25 INR 1.5 12/01/17 20:25 APTT 40.3 Seconds (25.6-37.1) H 12/01/17 20:25 D-Dimer, Quantitative 905 ng/mlDDU (0-230) H 12/01/17 20:25 Sodium 135 mmol/l (132-148) 12/04/17 06:42 Potassium 3.8 MMOL/L (3.6-5.0) 12/04/17 06:42 Chloride 101 mmol/L (98-107) 12/04/17 06:42 Carbon Dioxide 25 mmol/L (22-30) 12/04/17 06:42 Anion Gap 13 (10-20) 12/04/17 06:42 BUN 44 mg/dl (9-20) H 12/04/17 06:42 Creatinine 1.7 mg/dl (0.8-1.5) H 12/04/17 06:42 Est GFR ( Amer) 52 12/04/17 06:42 Est GFR (Non-Af Amer) 43 12/04/17 06:42 Random Glucose 125 mg/dL (75-110) H 12/04/17 06:42 Calcium 8.8 mg/dL (8.4-10.2) 12/04/17 06:42 Total Bilirubin 4.2 mg/dl (0.2-1.3) H 12/01/17 20:25 AST 47 U/L (17-59) 12/01/17 20:25 ALT 31 U/L (21-72) 12/01/17 20:25 Alkaline Phosphatase 178 U/L (38-126) H 09/02/18 20:25 Troponin I 0.0570 ng/mL (0.00-0.120) 12/02/17 08:00 NT-Pro-B Natriuret Pep 3300 pg/ml (0-450) H 12/01/17 20:25 Total Protein 9.0 G/DL (6.3-8.2) H 12/01/17 20:25 Albumin 4.1 g/dL (3.5-5.0) 12/01/17 20:25 Globulin 4.9 gm/dL (2.2-3.9) H 12/01/17 20:25 Albumin/Globulin Ratio 0.8 (1.0-2.1) L 12/01/17 20:25 Digoxin < 0.4 ng/mL (0.8-2.0) L 12/02/17 08:00 Urine Opiates Screen Negative (NEGATIVE) 12/01/17 20:30 Urine Methadone Screen Negative (NEGATIVE) 12/01/17 20:30 Ur Barbiturates Screen Negative (NEGATIVE) 12/01/17 20:30 Ur Phencyclidine Scrn Negative (NEGATIVE) 12/01/17 20:30 Ur Amphetamines Screen Negative (NEGATIVE) 12/01/17 20:30 U Benzodiazepines Scrn Negative (NEGATIVE) 12/01/17 20:30 U Oth Cocaine Metabols Negative (NEGATIVE) 12/01/17 20:30 U Cannabinoids Screen Negative (NEGATIVE) 12/01/17 20:30 HIV 1&2 Antibody Screen Negative (NEGATIVE) 12/02/17 08:00 - Hospital Course Hospital Course: 47 year old Male presented to ED on 12/01/17 with complaint of worsening SOB and bilateral lower extremity swelling x 1 day. PMHx includes systolic CHF (most recent EF 15%) s/p AICD, HTN, hx recent cutaneous MRSA infection, LLE DVT (took Eliquis 8 months ago). Patient reports he flew in from [place] recently. Denies any increased sodium or condiment intake in diet, denies increase in baseline fluid intake. Denies chest pain, fevers, chills, nausea, vomiting, weakness or dizziness. Patient states he is on the heart transplant list in [place], but will in [place] until December 2017-possibly will move here. States he is compliant with all his medications. Patient reports chronic yellowing of eyes with negative workup. Pt was admitted on 12/02/17 for CHF exacerbation and B/L lower extremity pain. CT of chest was negative for PE. LE US was negative for DVT. echo showed profound global LV dysfunction with EF of 10-15%. Today, pt reports his shortness of breath is back to his baseline. Denies chest pain or calf pain. Pt is medically stable to discharge home with his home medications including milrinone drip. Pt was advised to f/u with [facility] in [place] as he is on the heart transplant list in [place]. Pt is contemplating to stay in [place]. Advised to f/u with higher care facilities i.e [facility] or [facility] for advanced heart failure treatment and to be on heart transplant list. Medications on discharge: Bumetanide [Bumex] 2 mg PO DAILY #30 tab Digoxin 125 mcg PO DAILY #30 tablet Isosorbide Dinitrate [Isordil] 20 mg PO TID #90 tab Metoprolol Succinate [Toprol Xl] 25 mg PO DAILY #30 tab.er.24h Spironolactone [Aldactone] 25 mg PO DAILY #30 tablet Milrinone drip @ 0.375 mcg/kg/min Discharge Exam - Head Exam Head Exam: ATRAUMATIC, NORMAL INSPECTION - Eye Exam Eye Exam: EOMI, Scleral icterus - ENT Exam ENT Exam: Mucous Membranes Moist - Neck Exam Additional comments: No JVD - Respiratory Exam Respiratory Exam: Clear to PA & Lateral, NORMAL BREATHING PATTERN. absent: Accessory Muscle Use, Rales, Rhonchi, Wheezes, Respiratory Distress - Cardiovascular Exam Cardiovascular Exam: REGULAR RHYTHM, RRR, +S1, +S2 - GI/Abdominal Exam GI & Abdominal Exam: Normal Bowel Sounds, Soft. absent: Tenderness - Extremities Exam Additional comments: 2+ Non pitting edema of legs B/L (baseline as per patient) - Neurological Exam Neurological exam: Alert, Oriented x3 - Psychiatric Exam Psychiatric exam: Normal Affect, Normal Mood - Skin Skin Exam: Dry, Intact, Normal Color Discharge Plan - Discharge Medications Prescriptions: Bumetanide [Bumex] 2 mg PO DAILY #30 tab Digoxin 125 mcg PO DAILY #30 tablet Isosorbide Dinitrate [Isordil] 20 mg PO TID #90 tab Metoprolol Succinate [Toprol Xl] 25 mg PO DAILY #30 tab.er.24h Spironolactone [Aldactone] 25 mg PO DAILY #30 tablet - Follow Up Plan Condition: FAIR Disposition: HOME/ ROUTINE Instructions: Heart Failure (DC) Additional Instructions: Please follow up with your [facility]. If you decide to stay in [place], please establish care at [facility] or [place] in a congestive heart failure specialist clinic. Follow up with PMD within 1 week. Referrals: [facility] [Provider Group] <Juliette Mullen - Last Filed: 12/04/17 18:13> Provider - Provider Date of Admission: 12/03/17 10:40 Attending physician: Tim Kerr [facility] Course - Lab Results Lab Results: Most Recent Lab Values WBC 9.6 K/uL (4.8-10.8) 12/04/17 06:42 RBC 5.00 Mil/uL (4.40-5.90) 12/04/17 06:42 Hgb 12.5 g/dL (12.0-18.0) 12/04/17 06:42 Hct 38.1 % (35.0-51.0) 12/04/17 06:42 MCV 76.3 fl (80.0-94.0) L 12/04/17 06:42 MCH 24.9 pg (27.0-31.0) L 12/04/17 06:42 MCHC 32.7 g/dL (33.0-37.0) L 12/04/17 06:42 RDW 21.3 % (11.5-14.5) H 12/04/17 06:42 Plt Count 248 K/uL (130-400) 12/04/17 06:42 MPV 9.6 fl (7.2-11.7) 12/01/17 20:25 Neut % (Auto) 71.6 % (50.0-75.0) 12/01/17 20:25 Lymph % (Auto) 16.7 % (20.0-40.0) L 12/01/17 20:25 [place] % (Auto) 9.6 % (0.0-10.0) 12/01/17 20:25 Eos % (Auto) 0.9 % (0.0-4.0) 12/01/17 20:25 Baso % (Auto) 1.2 % (0.0-2.0) 12/01/17 20:25 Neut # (Auto) 8.5 K/uL (1.8-7.0) H 12/01/17 20:25 Lymph # (Auto) 2.0 K/uL (1.0-4.3) 12/01/17 20:25 [place] # (Auto) 1.1 K/uL (0.0-0.8) H 12/01/17 20:25 Eos # (Auto) 0.1 K/uL (0.0-0.7) 12/01/17 20:25 Baso # (Auto) 0.1 K/uL (0.0-0.2) 12/01/17 20:25 PT 17.2 Seconds (9.8-13.1) H 12/01/17 20:25 INR 1.5 12/01/17 20:25 APTT 40.3 Seconds (25.6-37.1) H 12/01/17 20:25 D-Dimer, Quantitative 905 ng/mlDDU (0-230) H 12/01/17 20:25 Sodium 135 mmol/l (132-148) 12/04/17 06:42 Potassium 3.8 MMOL/L (3.6-5.0) 12/04/17 06:42 Chloride 101 mmol/L (98-107) 12/04/17 06:42 Carbon Dioxide 25 mmol/L (22-30) 12/04/17 06:42 Anion Gap 13 (10-20) 12/04/17 06:42 BUN 44 mg/dl (9-20) H 12/04/17 06:42 Creatinine 1.7 mg/dl (0.8-1.5) H 12/04/17 06:42 Est GFR ( Amer) 52 12/04/17 06:42 Est GFR (Non-Af Amer) 43 12/04/17 06:42 Random Glucose 125 mg/dL (75-110) H 12/04/17 06:42 Calcium 8.8 mg/dL (8.4-10.2) 12/04/17 06:42 Total Bilirubin 4.2 mg/dl (0.2-1.3) H 12/01/17 20:25 AST 47 U/L (17-59) 12/01/17 20:25 ALT 31 U/L (21-72) 12/01/17 20:25 Alkaline Phosphatase 178 U/L (38-126) H 12/01/17 20:25 Troponin I 0.0570 ng/mL (0.00-0.120) 12/02/17 08:00 NT-Pro-B Natriuret Pep 3300 pg/ml (0-450) H 12/01/17 20:25 Total Protein 9.0 G/DL (6.3-8.2) H 12/01/17 20:25 Albumin 4.1 g/dL (3.5-5.0) 12/01/17 20:25 Globulin 4.9 gm/dL (2.2-3.9) H 12/01/17 20:25 Albumin/Globulin Ratio 0.8 (1.0-2.1) L 12/01/17 20:25 Digoxin < 0.4 ng/mL (0.8-2.0) L 12/02/17 08:00 Urine Opiates Screen Negative (NEGATIVE) 12/01/17 20:30 Urine Methadone Screen Negative (NEGATIVE) 12/01/17 20:30 Ur Barbiturates Screen Negative (NEGATIVE) 12/01/17 20:30 Ur Phencyclidine Scrn Negative (NEGATIVE) 12/01/17 20:30 Ur Amphetamines Screen Negative (NEGATIVE) 12/01/17 20:30 U Benzodiazepines Scrn Negative (NEGATIVE) 12/01/17 20:30 U Oth Cocaine Metabols Negative (NEGATIVE) 12/01/17 20:30 U Cannabinoids Screen Negative (NEGATIVE) 12/01/17 20:30 HIV 1&2 Antibody Screen Negative (NEGATIVE) 12/02/17 08:00 Attending/Attestation - Attestation I have personally seen and examined this patient.: Yes I have fully participated in the care of the patient.: Yes I have reviewed all pertinent clinical information, including history, physical exam and plan: Yes Notes (Text): 12/04/17 18:13 Seen, examined, and discussed with resident. Agree with findings and plan as above.
[2017-12-04 16:01] VITALS: BP 126/98; PULSE 83; RESP 17; TEMP 96.3
== END 2017-12-04 16:45 | disposition home health service (06) | DRG 291 ==
LOC: H.ER 19:06 → H.ERHOLD 23:56 → H.TEL 12-02 02:25 → OBSVTOIN 12-03 10:40
PROVIDERS: ADMIT Internal Medicine; ATTEND Internal Medicine
DX: I13.0 Hypertensive heart and chronic kidney disease with heart failure and stage 1 through stage 4 chronic kidney disease, or unspecified chronic kidney disease (principal); I50.23 Acute on chronic systolic (congestive) heart failure; R17 Unspecified jaundice; N17.9 Acute kidney failure, unspecified; Z76.82 Awaiting organ transplant status; Z87.891 Personal history of nicotine dependence; Z95.810 Presence of automatic (implantable) cardiac defibrillator; Z86.718 Personal history of other venous thrombosis and embolism; N18.3 Chronic kidney disease, stage 3 (moderate); I42.9 Cardiomyopathy, unspecified

== ENCOUNTER 2017-12-31 11:38 | Inpatient (IN) | payer MEDICARE ==
[2017-12-31 11:49] VITALS: BMI 35.9
[2017-12-31] MEDS ORDERED: Albuterol-Ipratrop 3 mg / 0.5 (3 ml) UD INH STA (12:19)
--- NOTE | 2017-12-31 12:25 | ED PDOC ---
HPI: Chest Pain Time Seen by Provider: 12/31/17 11:55 Chief Complaint (Nursing): Chest Pain Chief Complaint (Provider): Chest pain and dyspnea History Per: Patient History/Exam Limitations: no limitations Onset/Duration Of Symptoms: Days (today) Additional Complaint(s): Pt. with dyspnea and chest pain. Has had same in the past and was his chf. On milrinone drip and he ran out. No weakness, fever, nausea, vomit, diarrhea. No abd pain. All his doctors are in [facility] [place]. Past Medical History Reviewed: Nursing Documentation, Vital Signs Vital Signs: Last Vital Signs Temp 98.3 F 12/31/17 11:49 Pulse 85 12/31/17 11:49 Resp 16 12/31/17 11:49 BP 104/86 12/31/17 11:49 Pulse Ox 100 12/31/17 11:49 - Medical History PMH: CHF, HTN Denies: HIV, Chronic Kidney Disease - Surgical History Surgical History: Pacemaker - Family History Family History: States: Unknown Family Hx - Home Medications Home Medications: Ambulatory Orders Medication Instructions Recorded Bumetanide [Bumex] 2 mg PO DAILY #30 tab 12/04/17 Digoxin 125 mcg PO DAILY #30 tablet 12/04/17 Isosorbide Dinitrate [Isordil] 20 mg PO TID #90 tab 12/04/17 Metoprolol Succinate [Toprol Xl] 25 mg PO DAILY #30 tab.er.24h 12/04/17 Spironolactone [Aldactone] 25 mg PO DAILY #30 tablet 12/04/17 - Allergies Allergies/Adverse Reactions: Allergies Allergy/AdvReac Type Severity Reaction Status Date / Time No Known Allergies Allergy Unverified 12/01/17 19:33 Review of Systems ROS Statement: Except As Marked, All Systems Reviewed And Found Negative Cardiovascular: Positive for: Chest Pain Respiratory: Positive for: Shortness of Breath Physical Exam - Reviewed Nursing Documentation Reviewed: Yes Vital Signs Reviewed: Yes - Physical Exam Appears: Positive for: Non-toxic, No Acute Distress Head Exam: Positive for: ATRAUMATIC, NORMAL INSPECTION, NORMOCEPHALIC Skin: Positive for: Normal Color, Warm, DRY Eye Exam: Positive for: EOMI, Normal appearance, PERRL ENT: Positive for: Normal ENT Inspection Neck: Positive for: Normal, Painless ROM, Supple Cardiovascular/Chest: Positive for: Regular Rate, Rhythm Respiratory: Positive for: Decreased Breath Sounds. Negative for: Accessory Muscle Use, Wheezing, Respiratory Distress Pulses-Dorsalis Pedis (L): 1+ Pulses-Dorsalis Pedis (R): 1+ Gastrointestinal/Abdominal: Positive for: Normal Exam, Soft. Negative for: Tenderness Back: Positive for: Normal Inspection. Negative for: L CVA Tenderness, R CVA Tenderness Extremity: Positive for: Normal ROM, Pedal Edema (b/l 1+). Negative for: Tende rness, Deformity Neurologic/Psych: Positive for: Alert, Oriented - Laboratory Results Result Diagrams: 12/31/17 12:47 12/31/17 12:47 Interpretation Of Abn Labs: dig level low; 3.2 k - ECG ECG: Positive for: Interpreted By Me, Viewed By Me ECG Rhythm: Positive for: Sinus Rhythm, Nonspecific Changes (similar to old) O2 Sat by Pulse Oximetry: 100 Pulse Ox Interpretation: Normal (on oxygen nasal) - Radiology X-Ray: Read By Radiologist X-Ray Interpretation: No Acute Disease - Progress ED Course And Treament: 1526: Stable. Alert. Spoke with Dr. Harvey. Will admit tele. No chest pain. Disposition - Clinical Impression Clinical Impression: Chest pain, CHF exacerbation, Hypokalemia - Patient ED Disposition Is Patient to be Admitted: Yes - Disposition Disposition Time: 15:26 Condition: FAIR - Pt Status Changed To: Hospital Disposition Of: Inpatient - Admit Certification Admit to Inpatient:: After my assessment, the patient will require hospitalization for at least two midnights. This is because of the severity of symptoms shown, intensity of services needed, and/or the medical risk in this patient being treated as an outpatient. - POA Present On Arrival: None
[2017-12-31] MEDS ORDERED: Albuterol-Ipratrop 3 mg / 0.5 (3 ml) UD ONE (12:39)
--- NOTE | 2017-12-31 13:16 | RAD ---
Date of service: 12/31/2017 HISTORY: dyspnea COMPARISON: 12/01/2017 FINDINGS: LUNGS: No active pulmonary disease. PLEURA: No significant pleural effusion identified, no pneumothorax apparent. CARDIOVASCULAR: Grossly normal heart size. AICD. Right subclavian central venous catheter. OSSEOUS STRUCTURES: No significant abnormalities. VISUALIZED UPPER ABDOMEN: Normal. OTHER FINDINGS: None. IMPRESSION: No active disease.
[2017-12-31 13:56] LABS: BASO # 0.1 K/uL (0.0-0.2); BASO % 1.1 % (0.0-2.0); EOS # 0.2 K/uL (0.0-0.7); EOS % 1.8 % (0.0-4.0); HEMOGLOBIN 12.5 g/dL (12.0-18.0); LYMPH # 1.6 K/uL (1.0-4.3); LYMPH % 17.9 % (20.0-40.0); MEAN CELL VOLUME 74.9 fl (80.0-94.0); MEAN CORPUSCULAR HEMOGLOBIN 24.2 pg (27.0-31.0); MEAN CORPUSCULAR HGB CONC 32.4 g/dL (33.0-37.0); MEAN PLATELET VOLUME 10.4 fl (7.2-11.7); MONO # 0.9 K/uL (0.0-0.8); MONO % 10.6 % (0.0-10.0); NEUT % 68.6 % (50.0-75.0); NRBC % 0.2 % (0.0-0.0); RBC 5.15 Mil/uL (4.40-5.90); WHITE BLOOD COUNT 8.8 K/uL (4.8-10.8)
[2017-12-31 14:14] LABS: INR 1.4; PROTHROMBIN TIME 15.6 Seconds (9.8-13.1)
[2017-12-31 14:17] LABS: PARTIAL THROMBOPLASTIN TIME 50.7 Seconds (25.6-37.1)
[2017-12-31 14:20] LABS: ALB/GLOB RATIO 0.8 (1.0-2.1); ALBUMIN 3.8 g/dL (3.5-5.0); CALCIUM 8.9 mg/dL (8.4-10.2)
[2017-12-31 14:24] LABS: TROPONIN I 0.035 ng/mL (0.00-0.120)
--- NOTE | 2017-12-31 14:50 | CARD ---
APPROVED REPORT Date of service: 12/31/2017 EKG Measurement Heart [id number] ME [id number] <Conclusion> Normal sinus rhythm Possible Left atrial enlargement Left axis deviation Inferior infarct, age undetermined Cannot rule out Anterior infarct, age undetermined Abnormal ECG
[2017-12-31] MEDS ORDERED: Potassium Chloride 20 mEq ER Tab PO ONE ×2 (15:10→17:31)
[2017-12-31] MEDS ORDERED: Morphine 4 MG/ML VIAL ONE (17:25)
[2017-12-31] MEDS: Milrinone 20mg/100ml D5W 100 ML IV SCH (17:40)
[2018-01-01] MEDS ORDERED: Albuterol-Ipratrop 3 mg / 0.5 (3 ml) UD INH STA (08:39)
[2018-01-01] MEDS ORDERED: Pneumococcal 23-Valent Vaccine IM ONE (10:00)
--- NOTE | 2018-01-01 10:30 | CP.PCM.CON ---
History of Present Illness - History of Present Illness History of Present Illness: This 47-year-old man came to the emergency room complaining of recent weight gain and severe shortness of breath. The patient gives history of being diagnosed with nonischemic cardiomyopathy a pproximately 3 years back and had been on a cardiac transplant list in [place]. Because he wasn't making any progress he has moved to [place] in early November. He was hospitalized a month back and subsequently has been admitted at nearby institutions as well. He has found a senior interactive producer whom he has seen and plans to see on the regular basis. The patient has been on a milrinone drip. He denies having recently eaten salty food but says that he has put on approximately 4 pounds and finds himself profoundly short of breath. The patient does describe extremely poor effort tolerance and periods of orthopnea. Physical examination shows a middle aged -[place] male who is sitting up in bed and can carry on a conversation with mild dyspnea while at rest. His respiratory rate was 20 breaths per minute and his heart rate was 70 bpm regular with a blood pressure of 104/80 mmHg. His jugular venous pressure was elevated and there was pitting edema over both lower ex images. The pedal pulses were extremely feeble. His extremities were warm and his nailbeds were pink. There was no central or peripheral cyanosis. The apex was not palpable. The first heart sound was muffled the second heart sound was normal there were few rales at both bases. Abdomen was soft and liver and spleen are not palpable. 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 An echocardiogram from one month back shows severe left ventricular wall motion abnormality with profound left ventricular systolic dysfunction. The rest of the findings were noted. His labs were noted and compared to his labs off a month back when he was also hospitalized here. The patient has received a potassium supplement in an attempt to resolve hypokalemia detected yesterday. Impression: Class IV congestive cardiac failure(left ventricular systolic and acute on chronic) secondary to nonischemic cardial myopathy. The patient appears to have adequate peripheral perfusion and intravenous loop diabetics have been administered to diurese him. Once his fluid status improves the patient will be allowed to return home under the care of his senior interactive producer. Apparently he is being put on the transplant list of [place]. Past Patient History - Infectious Disease Hx of Infectious Diseases: MRSA - Past Medical History & Family History Past Medical History?: Yes - Past Social History Smoking Status: Former Smoker - CARDIAC Hx Congestive Heart Failure: Yes Hx Hypertension: Yes Hx Pacemaker: Yes (defib) - PULMONARY Hx Respiratory Disorders: No - NEUROLOGICAL Hx Neurological Disorder: No - HEENT Hx HEENT Problems: No - RENAL Hx Chronic Kidney Disease: No - ENDOCRINE/METABOLIC Hx Endocrine Disorders: No - HEMATOLOGICAL/ONCOLOGICAL Hx AIDS: No Hx Human Immunodeficiency Virus (HIV): No - INTEGUMENTARY Hx Dermatological Problems: No - MUSCULOSKELETAL/RHEUMATOLOGICAL Hx Musculoskeletal Disorders: No Hx Falls: No - GASTROINTESTINAL Hx Gastrointestinal Disorders: No - GENITOURINARY/GYNECOLOGICAL Hx Genitourinary Disorders: No - PSYCHIATRIC Hx Psychophysiologic Disorder: No Hx Substance Use: No - SURGICAL HISTORY Hx Surgeries: Yes Hx Orthopedic Surgery: Yes (right ankle) - ANESTHESIA Hx Anesthesia: Yes Hx Anesthesia Reactions: No Hx Malignant Hyperthermia: No Meds Allergies/Adverse Reactions: Allergies Allergy/AdvReac Type Severity Reaction Status Date / Time No Known Allergies Allergy Unverified 12/01/17 19:33 - Medications Medications: Current Medications Digoxin (Digoxin) 0.125 mg PO DAILY [facility] Furosemide (Lasix) 40 mg IVP BID [facility] Last Admin: 01/01/18 10:04 Dose: 40 mg Hydralazine HCl (Apresoline) 25 mg PO Q8 [facility] Last Admin: 01/01/18 00:48 Dose: Not Given Milrinone Lactate/Dextrose (Primacor 20mg/100ml D5w) 100 mls @ 2.2 mls/hr IV .Q24H [facility]; Protocol Last Admin: 12/31/17 17:40 Dose: 2.2 mls/hr Isosorbide Dinitrate (Isordil) 20 mg PO TID [facility] Metoprolol Succinate (Toprol Xl) 25 mg PO DAILY [facility] Morphine Sulfate (Morphine) 2 mg IVP Q4 PRN PRN Reason: Pain, severe (8-10) Last Admin: 01/01/18 10:04 Dose: 2 mg Spironolactone (Aldactone) 25 mg PO DAILY [facility] Results - Vital Signs Recent Vital Signs: Last Vital Signs Temp 97.5 F L 01/01/18 08:15 Pulse 80 01/01/18 09:17 Resp 18 01/01/18 08:15 BP 107/77 01/01/18 10:04 Pulse Ox 98 01/01/18 08:15 - Labs Result Diagrams: 12/31/17 12:47 12/31/17 12:47 Labs: Laboratory Results - last 24 hr 12/31/17 12/31/17 12/31/17 12:47 12:47 12:47 WBC 8.8 RBC 5.15 Hgb 12.5 Hct 38.6 MCV 74.9 L MCH 24.2 L MCHC 32.4 L RDW 20.0 H Plt Count 260 MPV 10.4 Neut % (Auto) 68.6 Lymph % (Auto) 17.9 L [place] % (Auto) 10.6 H Eos % (Auto) 1.8 Baso % (Auto) 1.1 Neut # (Auto) 6.0 Lymph # (Auto) 1.6 [place] # (Auto) 0.9 H Eos # (Auto) 0.2 Baso # (Auto) 0.1 PT 15.6 H INR 1.4 APTT 50.7 H Sodium 142 Potassium 3.2 L Chloride 102 Carbon Dioxide 25 Anion Gap 18 BUN 37 H Creatinine 1.7 H Est GFR ( Amer) 52 Est GFR (Non-Af Amer) 43 Random Glucose 119 H Calcium 8.9 Total Bilirubin 2.1 H AST 35 ALT 37 Alkaline Phosphatase 157 H Troponin I 0.0350 NT-Pro-B Natriuret Pep 3130 H Total Protein 8.7 H Albumin 3.8 Globulin 4.8 H Albumin/Globulin Ratio 0.8 L Digoxin 12/31/17 12:47 WBC RBC Hgb Hct MCV MCH MCHC RDW Plt Count MPV Neut % (Auto) Lymph % (Auto) [place] % (Auto) Eos % (Auto) Baso % (Auto) Neut # (Auto) Lymph # (Auto) [place] # (Auto) Eos # (Auto) Baso # (Auto) PT INR APTT Sodium Potassium Chloride Carbon Dioxide Anion Gap BUN Creatinine Est GFR ( Amer) Est GFR (Non-Af Amer) Random Glucose Calcium Total Bilirubin AST ALT Alkaline Phosphatase Troponin I NT-Pro-B Natriuret Pep Total Protein Albumin Globulin Albumin/Globulin Ratio Digoxin < 0.4 L
[2018-01-01 11:13] LABS: HEMOGLOBIN 12.6 g/dL (12.0-18.0); MEAN CELL VOLUME 74.9 fl (80.0-94.0); MEAN CORPUSCULAR HEMOGLOBIN 24.4 pg (27.0-31.0); MEAN CORPUSCULAR HGB CONC 32.6 g/dL (33.0-37.0); RBC 5.18 Mil/uL (4.40-5.90); RED CELL DISTRIBUTION WIDTH 20.4 % (11.5-14.5); WHITE BLOOD COUNT 8.9 K/uL (4.8-10.8)
[2018-01-01 11:19] LABS: ALB/GLOB RATIO 0.8 (1.0-2.1); ALBUMIN 3.9 g/dL (3.5-5.0); CALCIUM 9.2 mg/dL (8.4-10.2)
[2018-01-01 11:30] LABS: TROPONIN I 0.029 ng/mL (0.00-0.120)
[2018-01-01] MEDS: Digoxin 125 mcg (0.125 mg) Tab PO SCH (11:30)
[2018-01-01] MEDS: Metoprolol Succinate 25 mg XL Tab PO SCH (11:31)
[2018-01-01] MEDS ORDERED: Potassium Chloride 20 mEq ER Tab PO ONE (14:30)
[2018-01-01] MEDS ORDERED: Influenza Vaccine (5 YR UP)/PF 60 MCG/0.5 ML SYR IM ONE (15:37)
--- NOTE | 2018-01-01 16:32 | CARD ---
APPROVED REPORT Date of service: 01/01/2018 EKG Measurement Heart [id number] <Conclusion> Sinus rhythm with occasional premature ventricular complexes Possible Left atrial enlargement indetermiate axis RBBB Abnormal ECG
[2018-01-01] MEDS: Albuterol-Ipratrop 3 mg / 0.5 (3 ml) UD INH STA (19:42)
[2018-01-01] MEDS: Milrinone 20mg/100ml D5W 100 ML IV SCH (21:53)
--- NOTE | 2018-01-02 00:57 | CP.PCM.HP ---
History of Present Illness - History of Present Illness History of Present Illness: CC: SOB and Chest Pain History of Present Illness: A 47-year-old man with H/O HTN, Non-Ischemic CMY on Milrinon Infusion presented to the emergency room complaining of chest pain 7/10, intermittent. Also states gained weight recently. H/O Severe shortness of breath even at rest associated with Orthopnia sleeps propped up or sitting on the chair.+PND Progressively B/L Lower extremity swelling extending to the lower thigh. C/O Chantel n to the Lower extremities and lower back. No erythema or ulcerations to the extremities. Patient was on a waiting list for Heart Transplant in [place] which was taking longer, and he recently relocated to [place]. He has a vocal music teacher who is helping towards getting heart Transplant. Last TTE showed on 10-15%. Patient states he is compliant to Salt restriction and Medications. Denies Drug or ETOH use. Present on Admission - Present on Admission Any Indicators Present on Admission: Yes Review of Systems - Review of Systems All systems: reviewed and no additional remarkable complaints except Review of Systems: as per HPI Past Patient History - Infectious Disease Hx of Infectious Diseases: MRSA - Past Medical History & Family History Past Medical History?: Yes Past Family History: Reviewed and not pertinent - Past Social History Smoking Status: Former Smoker Alcohol: None Drugs: Denies - CARDIAC Hx Congestive Heart Failure: Yes Hx Hypertension: Yes Hx Internal Defibrillator: Yes Hx Pacemaker: Yes (defib) - PULMONARY Hx Respiratory Disorders: No - NEUROLOGICAL Hx Neurological Disorder: No - HEENT Hx HEENT Problems: No - RENAL Hx Chronic Kidney Disease: No - ENDOCRINE/METABOLIC Hx Endocrine Disorders: No - HEMATOLOGICAL/ONCOLOGICAL Hx AIDS: No Hx Human Immunodeficiency Virus (HIV): No - INTEGUMENTARY Hx Dermatological Problems: No - MUSCULOSKELETAL/RHEUMATOLOGICAL Hx Musculoskeletal Disorders: No Hx Falls: No - GASTROINTESTINAL Hx Gastrointestinal Disorders: No - GENITOURINARY/GYNECOLOGICAL Hx Genitourinary Disorders: No - PSYCHIATRIC Hx Psychophysiologic Disorder: No Hx Substance Use: No - SURGICAL HISTORY Hx Surgeries: Yes Hx Orthopedic Surgery: Yes (right ankle) - ANESTHESIA Hx Anesthesia: Yes Hx Anesthesia Reactions: No Hx Malignant Hyperthermia: No Meds Allergies/Adverse Reactions: Allergies Allergy/AdvReac Type Severity Reaction Status Date / Time No Known Allergies Allergy Unverified 12/01/17 19:33 Physical Exam - Constitutional Appears: In Acute Distress, Chronically Ill - Head Exam Head Exam: ATRAUMATIC, NORMAL INSPECTION, NORMOCEPHALIC - Eye Exam Eye Exam: EOMI, Normal appearance, PERRL Pupil Exam: NORMAL ACCOMODATION, PERRL - ENT Exam ENT Exam: Mucous Membranes Moist, Normal Exam - Neck Exam Neck exam: Positive for: Normal Inspection - Respiratory Exam Respiratory Exam: Rales, NORMAL BREATHING PATTERN. absent: Chest Wall Tenderness, Wheezes - Cardiovascular Exam Cardiovascular Exam: REGULAR RHYTHM, +S1, +S2 - GI/Abdominal Exam GI & Abdominal Exam: Normal Bowel Sounds, Soft. absent: Tenderness - Extremities Exam Extremities exam: Positive for: pedal edema (4+ Pitting), tenderness Additional comments: B/L Chronic changes. No erythema or Ulcerations. - Back Exam Back exam: NORMAL INSPECTION - Neurological Exam Neurological exam: Alert, CN II-XII Intact, Normal Gait, Oriented x3, Reflexes Normal - Psychiatric Exam Psychiatric exam: Normal Affect, Normal Mood - Skin Skin Exam: Dry, Intact, Normal Color, Warm Results - Vital Signs Recent Vital Signs: Last Vital Signs Temp 97.0 F L 01/02/18 00:02 Pulse 88 01/02/18 00:02 Resp 16 01/02/18 00:02 BP 121/86 01/02/18 00:02 Pulse Ox 95 01/02/18 00:02 - Labs Result Diagrams: 01/03/18 04:20 01/06/18 05:45 Labs: Laboratory Results - last 24 hr 01/01/18 01/01/18 01/01/18 10:47 10:47 17:39 WBC 8.9 RBC 5.18 Hgb 12.6 Hct 38.8 MCV 74.9 L MCH 24.4 L MCHC 32.6 L RDW 20.4 H Plt Count 280 Sodium 139 Potassium 3.4 L Chloride 101 Carbon Dioxide 26 Anion Gap 15 BUN 45 H Creatinine 2.0 H Est GFR ( Amer) 43 Est GFR (Non-Af Amer) 36 Random Glucose 134 H Calcium 9.2 Phosphorus 4.8 H Magnesium 1.6 Total Bilirubin 2.7 H AST 29 ALT 36 Alkaline Phosphatase 150 H Troponin I 0.0290 0.0330 NT-Pro-B Natriuret Pep 3950 H Total Protein 9.0 H Albumin 3.9 Globulin 5.1 H Albumin/Globulin Ratio 0.8 L - EKG Data EKG Interpreted by: Myself EKG shows normal: Sinus rhythm Rate: Normal - EKG Data EKG comments: Left LAD. Left Atrial enlargement. - Imaging and Cardiology Chest x-ray Status: Report reviewed by me Additional comment: No Active Disease Assessment & Plan (1) CHF exacerbation Assessment and Plan: Non-Ischemic DCM with NYHA Class III-IV BL LE Edema R/O ACS O2 Via NC Milrinone Infusion 2.2 ml/hr IV Lasix BB, Digoxin, Enalapril, Aldactone, Hydralazine and Isosorbide TTE Monitor I/O Daily Weight Cardiology Consult Status: Resolved Priority: High (2) Acute kidney injury Assessment and Plan: Avoid Nephrotoxic Meds Monitor BMP Status: Acute Priority: Medium (3) Essential (primary) hypertension Status: Chronic Priority: Low
--- NOTE | 2018-01-02 00:58 | CP.PCM.PN ---
Subjective - Date & Time of Evaluation Date of Evaluation: 01/01/18 Time of Evaluation: 16:50 Objective - Vital Signs/Intake and Output Vital Signs (last 24 hours): Temp Pulse Resp BP Pulse Ox 97.0 F L 88 16 121/86 95 01/02/18 00:02 01/02/18 00:02 01/02/18 00:02 01/02/18 00:02 01/02/18 00:02 Intake and Output: 01/01/18 01/02/18 18:59 06:59 Intake Total 876 Balance 876 - Medications Medications: Current Medications Digoxin (Digoxin) 0.125 mg PO DAILY [facility] Last Admin: 01/01/18 11:30 Dose: 0.125 mg Furosemide (Lasix) 40 mg IVP BID [facility] Last Admin: 01/01/18 18:18 Dose: 40 mg Hydralazine HCl (Apresoline) 25 mg PO Q8 [facility] Last Admin: 01/01/18 18:17 Dose: 25 mg Milrinone Lactate/Dextrose (Primacor 20mg/100ml D5w) 100 mls @ 2.2 mls/hr IV .Q24H [facility]; Protocol Last Admin: 01/01/18 21:53 Dose: Not Given Isosorbide Dinitrate (Isordil) 20 mg PO TID [facility] Last Admin: 01/01/18 18:17 Dose: 20 mg Metoprolol Succinate (Toprol Xl) 25 mg PO DAILY [facility] Last Admin: 01/01/18 11:31 Dose: 25 mg Morphine Sulfate (Morphine) 2 mg IVP Q4 PRN PRN Reason: Pain, severe (8-10) Last Admin: 01/01/18 20:35 Dose: 2 mg Spironolactone (Aldactone) 25 mg PO DAILY [facility] Last Admin: 01/01/18 11:30 Dose: 25 mg - Labs Labs: 01/01/18 10:47 01/01/18 10:47 PT 15.6 Seconds (9.8-13.1) H 12/31/17 12:47 INR 1.4 12/31/17 12:47 APTT 50.7 Seconds (25.6-37.1) H 12/31/17 12:47
[2018-01-02] MEDS: Milrinone 20mg/100ml D5W 100 ML IV SCH ×2 (01:56→17:40)
[2018-01-02 05:54] LABS: CALCIUM 9.2 mg/dL (8.4-10.2)
[2018-01-02] MEDS: Digoxin 125 mcg (0.125 mg) Tab PO SCH (08:57)
[2018-01-02 09:06] VITALS: PULSE 80
--- NOTE | 2018-01-02 09:33 | CP.PCM.PN ---
Subjective - Date & Time of Evaluation Date of Evaluation: 01/02/18 Time of Evaluation: 08:30 - Subjective Subjective: Was severely dyspnoic yesterday afternoon Has lost 1 lb over last 24 hrs Sinus rhythm at 70 BPM (On Metoprolol) BP 120/80 mm Hg Extremities warm/mentation clear JVP still elevated/ Pedal oedema ++ K+ normal Creatinin has gone from 2.0 to 1.6 Mg (GFR from 36 to 46 ml/min) Renal perfusion still stable Will increase doses of Furosemide and Spironolactone (to be held for syst BP below 90 mm Hg) K+ level to be monitored Dig discontinued (Pt in sinus rhythm) Daily weights and BMP Objective - Vital Signs/Intake and Output Vital Signs (last 24 hours): Temp Pulse Resp BP Pulse Ox 97.3 F L 80 20 126/84 99 01/02/18 08:40 01/02/18 08:57 01/02/18 08:40 01/02/18 08:57 01/02/18 08:40 Intake and Output: 01/02/18 01/02/18 06:59 18:59 Intake Total 1302 Output Total 1200 Balance 102 - Medications Medications: Current Medications Enalapril Maleate (Vasotec) 2.5 mg PO DAILY [facility] Furosemide (Lasix) 80 mg IVP DAILY [facility] Furosemide (Lasix) 40 mg IV ONCE ONE Stop: 01/03/18 09:29 Hydralazine HCl (Apresoline) 25 mg PO Q8 [facility] Last Admin: 01/02/18 08:57 Dose: 25 mg Milrinone Lactate/Dextrose (Primacor 20mg/100ml D5w) 100 mls @ 2.2 mls/hr IV .Q24H [facility]; Protocol Last Admin: 01/02/18 01:56 Dose: 2.2 mls/hr Isosorbide Dinitrate (Isordil) 20 mg PO TID [facility] Last Admin: 01/02/18 08:58 Dose: 20 mg Metoprolol Succinate (Toprol Xl) 25 mg PO DAILY [facility] Last Admin: 01/01/18 11:31 Dose: 25 mg Morphine Sulfate (Morphine) 2 mg IVP Q4 PRN PRN Reason: Pain, severe (8-10) Last Admin: 01/02/18 08:56 Dose: 2 mg Spironolactone (Aldactone) 50 mg PO BID [facility] Spironolactone (Aldactone) 25 mg PO ONCE ONE Stop: 01/03/18 09:28 - Labs Labs: 01/01/18 10:47 01/02/18 05:43 PT 15.6 Seconds (9.8-13.1) H 12/31/17 12:47 INR 1.4 12/31/17 12:47 APTT 50.7 Seconds (25.6-37.1) H 12/31/17 12:47
[2018-01-02] MEDS: Metoprolol Succinate 25 mg XL Tab PO SCH (11:04)
[2018-01-02] MEDS ORDERED: Albuterol-Ipratrop 3 mg / 0.5 (3 ml) UD INH STA ×2 (13:26→14:30)
[2018-01-02] MEDS ORDERED: Albuterol-Ipratrop 3 mg / 0.5 (3 ml) UD INH PRN (13:32)
[2018-01-02] MEDS: Albuterol-Ipratrop 3 mg / 0.5 (3 ml) UD INH STA (14:31)
[2018-01-03 05:49] LABS: HEMOGLOBIN 12.5 g/dL (12.0-18.0); MEAN CORPUSCULAR HEMOGLOBIN 24.2 pg (27.0-31.0); MEAN CORPUSCULAR HGB CONC 32.2 g/dL (33.0-37.0); RBC 5.19 Mil/uL (4.40-5.90); RED CELL DISTRIBUTION WIDTH 20.5 % (11.5-14.5); WHITE BLOOD COUNT 10.7 K/uL (4.8-10.8)
[2018-01-03 05:58] LABS: BLOOD UREA NITROGEN 40 mg/dl (9-20); GFR NON-AFRICAN AMERICAN 54
--- NOTE | 2018-01-03 08:43 | CP.PCM.PN ---
Subjective - Date & Time of Evaluation Date of Evaluation: 01/03/18 Time of Evaluation: 08:20 Objective - Vital Signs/Intake and Output Vital Signs (last 24 hours): Temp Pulse Resp BP Pulse Ox 97.8 F 76 20 102/71 98 01/03/18 04:53 01/03/18 04:53 01/03/18 04:53 01/03/18 04:53 01/03/18 04:53 Intake and Output: 01/03/18 01/03/18 06:59 18:59 Intake Total 786 Output Total 1300 Balance -514 - Medications Medications: Current Medications Albuterol/Ipratropium (Duoneb 3 Mg/0.5 Mg (3 Ml) Ud) 3 ml INH RQ4 PRN PRN Reason: Shortness of Breath Enalapril Maleate (Vasotec) 2.5 mg PO DAILY [facility] Last Admin: 01/02/18 10:03 Dose: 2.5 mg Furosemide (Lasix) 80 mg IVP DAILY [facility] Last Admin: 01/02/18 11:05 Dose: Not Given Furosemide (Lasix) 40 mg IVP DAILY@1700 [facility] Last Admin: 01/02/18 17:40 Dose: 40 mg Hydralazine HCl (Apresoline) 25 mg PO Q8 [facility] Last Admin: 01/03/18 02:21 Dose: 25 mg Milrinone Lactate/Dextrose (Primacor 20mg/100ml D5w) 100 mls @ 2.2 mls/hr IV .Q24H [facility]; Protocol Last Admin: 01/02/18 17:40 Dose: Not Given Isosorbide Dinitrate (Isordil) 20 mg PO TID [facility] Last Admin: 01/02/18 17:39 Dose: 20 mg Metoprolol Succinate (Toprol Xl) 25 mg PO DAILY [facility] Last Admin: 01/02/18 11:04 Dose: 25 mg Morphine Sulfate (Morphine) 2 mg IVP Q4 PRN PRN Reason: Pain, severe (8-10) Last Admin: 01/03/18 05:02 Dose: 2 mg Spironolactone (Aldactone) 50 mg PO BID [facility] Last Admin: 01/02/18 17:39 Dose: 50 mg - Labs Labs: 01/03/18 04:20 01/03/18 04:20 PT 15.6 Seconds (9.8-13.1) H 10/02/18 12:47 INR 1.4 12/31/17 12:47 APTT 50.7 Seconds (25.6-37.1) H 12/31/17 12:47
--- NOTE | 2018-01-03 08:43 | CP.PCM.PN ---
Subjective - Date & Time of Evaluation Date of Evaluation: 01/02/18 Time of Evaluation: 15:20 Objective - Vital Signs/Intake and Output Vital Signs (last 24 hours): Temp Pulse Resp BP Pulse Ox 97.8 F 76 20 102/71 98 01/03/18 04:53 01/03/18 04:53 01/03/18 04:53 01/03/18 04:53 01/03/18 04:53 Intake and Output: 01/03/18 01/03/18 06:59 18:59 Intake Total 786 Output Total 1300 Balance -514 - Medications Medications: Current Medications Albuterol/Ipratropium (Duoneb 3 Mg/0.5 Mg (3 Ml) Ud) 3 ml INH RQ4 PRN PRN Reason: Shortness of Breath Enalapril Maleate (Vasotec) 2.5 mg PO DAILY [facility] Last Admin: 01/02/18 10:03 Dose: 2.5 mg Furosemide (Lasix) 80 mg IVP DAILY [facility] Last Admin: 01/02/18 11:05 Dose: Not Given Furosemide (Lasix) 40 mg IVP DAILY@1700 [facility] Last Admin: 01/02/18 17:40 Dose: 40 mg Hydralazine HCl (Apresoline) 25 mg PO Q8 [facility] Last Admin: 01/03/18 02:21 Dose: 25 mg Milrinone Lactate/Dextrose (Primacor 20mg/100ml D5w) 100 mls @ 2.2 mls/hr IV .Q24H [facility]; Protocol Last Admin: 01/02/18 17:40 Dose: Not Given Isosorbide Dinitrate (Isordil) 20 mg PO TID [facility] Last Admin: 01/02/18 17:39 Dose: 20 mg Metoprolol Succinate (Toprol Xl) 25 mg PO DAILY [facility] Last Admin: 01/02/18 11:04 Dose: 25 mg Morphine Sulfate (Morphine) 2 mg IVP Q4 PRN PRN Reason: Pain, severe (8-10) Last Admin: 01/03/18 05:02 Dose: 2 mg Spironolactone (Aldactone) 50 mg PO BID [facility] Last Admin: 01/02/18 17:39 Dose: 50 mg - Labs Labs: 01/03/18 04:20 01/03/18 04:20 PT 15.6 Seconds (9.8-13.1) H 10/02/18 12:47 INR 1.4 12/31/17 12:47 APTT 50.7 Seconds (25.6-37.1) H 12/31/17 12:47
[2018-01-03] MEDS ORDERED: Potassium Chloride 20 mEq ER Tab PO ONE (09:03)
--- NOTE | 2018-01-03 09:11 | CP.PCM.PN ---
Subjective - Date & Time of Evaluation Date of Evaluation: 01/03/18 Time of Evaluation: 08:40 - Subjective Subjective: The patient still continues to be mildly dyspneic even at rest. Over last 24 hours he has lost a pound and a half of weight. Telemetry displays sinus rhythm between 70 and 80 bpm with occasional premature ventricular beats (Review off her strip labeled as ventricular tachycardia turned out to be baseline artifact superimposed on patient's rhythm.) Patient's blood pressure sitting upright was 108/70 m of mercury. JVP was still mildly elevated Pedal edema was mildly reduced but still present Very few rales were audible at bases. Review off labs reveals a potassium level of 3.5 mEq per liter His BUN and creatinine were stable. Will increase his dose of furosemide from 120 mg every day to 80 mg twice a day intravenously. Patient continues on milrinone drip. On Spironolactone 50 mg twice a day as well. Objective - Vital Signs/Intake and Output Vital Signs (last 24 hours): Temp Pulse Resp BP Pulse Ox 98.1 F 69 18 118/83 97 01/03/18 08:49 01/03/18 08:49 01/03/18 08:49 01/03/18 08:49 01/03/18 08:49 Intake and Output: 01/03/18 01/03/18 06:59 18:59 Intake Total 786 Output Total 1300 Balance -514 - Medications Medications: Current Medications Albuterol/Ipratropium (Duoneb 3 Mg/0.5 Mg (3 Ml) Ud) 3 ml INH RQ4 PRN PRN Reason: Shortness of Breath Enalapril Maleate (Vasotec) 2.5 mg PO DAILY [facility] Last Admin: 01/02/18 10:03 Dose: 2.5 mg Furosemide (Lasix) 80 mg IVP DAILY [facility] Last Admin: 01/02/18 11:05 Dose: Not Given Furosemide (Lasix) 40 mg IVP DAILY@1700 [facility] Last Admin: 01/02/18 17:40 Dose: 40 mg Hydralazine HCl (Apresoline) 25 mg PO Q8 [facility] Last Admin: 01/03/18 02:21 Dose: 25 mg Milrinone Lactate/Dextrose (Primacor 20mg/100ml D5w) 100 mls @ 2.2 mls/hr IV .Q24H [facility]; Protocol Last Admin: 01/02/18 17:40 Dose: Not Given Isosorbide Dinitrate (Isordil) 20 mg PO TID [facility] Last Admin: 01/02/18 17:39 Dose: 20 mg Metoprolol Succinate (Toprol Xl) 25 mg PO DAILY [facility] Last Admin: 01/02/18 11:04 Dose: 25 mg Morphine Sulfate (Morphine) 2 mg IVP Q4 PRN PRN Reason: Pain, severe (8-10) Last Admin: 01/03/18 05:02 Dose: 2 mg Spironolactone (Aldactone) 50 mg PO BID [facility] Last Admin: 01/02/18 17:39 Dose: 50 mg - Labs Labs: 01/03/18 04:20 01/03/18 04:20 PT 15.6 Seconds (9.8-13.1) H 12/31/17 12:47 INR 1.4 12/31/17 12:47 APTT 50.7 Seconds (25.6-37.1) H 12/31/17 12:47
[2018-01-03] MEDS: Metoprolol Succinate 25 mg XL Tab PO SCH (10:51)
--- NOTE | 2018-01-03 17:28 | US ---
Date of service: 01/03/2018 PROCEDURE: Bilateral lower extremity venous duplex Doppler. HISTORY: swelling COMPARISON: None available. TECHNIQUE: Bilateral common femoral, superficial femoral, popliteal and posterior tibial veins were evaluated. Flow was assessed with color Doppler, compressibility, assessment of phasic flow and augmentation response. FINDINGS: COMMON FEMORAL VEIN: Right CFV: Unremarkable. Left CFV: Unremarkable. SUPERFICIAL FEMORAL VEIN: Right SFV: Unremarkable. Left SFV: Unremarkable. POPLITEAL VEIN: Right Popliteal: Unremarkable. Left Popliteal: Unremarkable. POSTERIOR TIBIAL VEIN: Right PTV: Unremarkable. Left PTV: Unremarkable. OTHER FINDINGS: Complex left popliteal fossa collection measures 1.7 x 1.9 x 4 cm. IMPRESSION: No evidence of deep venous thrombosis.
[2018-01-04 05:44] LABS: BLOOD UREA NITROGEN 43 mg/dl (9-20); CALCIUM 9.2 mg/dL (8.4-10.2); GFR NON-AFRICAN AMERICAN 50
[2018-01-04] MEDS: Milrinone 20mg/100ml D5W 100 ML IV SCH (08:22)
[2018-01-04] MEDS: Metoprolol Succinate 25 mg XL Tab PO SCH (08:29)
--- NOTE | 2018-01-04 09:51 | CP.PCM.PN ---
Subjective - Date & Time of Evaluation Date of Evaluation: 01/04/18 Time of Evaluation: 09:00 - Subjective Subjective: The patient reports that he has been diuresing well with intravenous Diuretics. Telemetry shows steady sinus rhythm with a heart rate that ranges between 60 bpm and 80 bpm. His blood pressure was 114/90 mmHg. JVP was not elevated Pedal edema was mildly reduced. There was a brief apical systolic murmur and no gallop rhythm. There were very few rales at both bases. Lab data shows stable BUN/creatinine and normal serum potassium level. The patient will continue to get 80 mg of furosemide intravenously twice a day along with spironolactone 50 mg twice a day Objective - Vital Signs/Intake and Output Vital Signs (last 24 hours): Temp Pulse Resp BP Pulse Ox 97.4 F L 86 20 110/77 100 01/04/18 08:23 01/04/18 08:29 01/04/18 08:23 01/04/18 08:38 01/04/18 08:23 Intake and Output: 01/04/18 01/04/18 06:59 18:59 Intake Total 100 Balance 100 - Medications Medications: Current Medications Albuterol/Ipratropium (Duoneb 3 Mg/0.5 Mg (3 Ml) Ud) 3 ml INH RQ4 PRN PRN Reason: Shortness of Breath Enalapril Maleate (Vasotec) 2.5 mg PO DAILY [facility] Last Admin: 01/04/18 08:29 Dose: 2.5 mg Furosemide (Lasix) 80 mg IVP BID [facility] Last Admin: 01/04/18 08:38 Dose: 80 mg Hydralazine HCl (Apresoline) 25 mg PO Q8 [facility] Last Admin: 01/04/18 08:28 Dose: 25 mg Milrinone Lactate/Dextrose (Primacor 20mg/100ml D5w) 100 mls @ 2.2 mls/hr IV .Q24H [facility]; Protocol Last Admin: 01/04/18 08:22 Dose: 2.2 mls/hr Isosorbide Dinitrate (Isordil) 20 mg PO TID [facility] Last Admin: 01/04/18 08:29 Dose: 20 mg Metoprolol Succinate (Toprol Xl) 25 mg PO DAILY [facility] Last Admin: 01/04/18 08:29 Dose: 25 mg Morphine Sulfate (Morphine) 2 mg IVP Q4 PRN PRN Reason: Pain, severe (8-10) Last Admin: 01/04/18 06:34 Dose: 2 mg Spironolactone (Aldactone) 50 mg PO BID [facility] Last Admin: 01/04/18 08:28 Dose: 50 mg - Labs Labs: 01/03/18 04:20 01/04/18 04:18 PT 15.6 Seconds (9.8-13.1) H 12/31/17 12:47 INR 1.4 12/31/17 12:47 APTT 50.7 Seconds (25.6-37.1) H 12/31/17 12:47
[2018-01-05 06:04] LABS: BLOOD UREA NITROGEN 47 mg/dl (9-20); CALCIUM 9.4 mg/dL (8.4-10.2); GFR NON-AFRICAN AMERICAN 54
--- NOTE | 2018-01-05 11:11 | CP.PCM.PN ---
Subjective - Date & Time of Evaluation Date of Evaluation: 01/05/18 Time of Evaluation: 10:30 - Subjective Subjective: The patient reports significant diuresis overnight. The patient has been able to walk to the bathroom and back with mild dyspnea only During the night the patient indicates he has not had reason to get up and sit in a chair to catch his breath Telemetry shows steady sinus rhythm with rare premature ventricular beats at a heart rate of 60-70 bpm The patient reports improved appetite. His blood pressure was 122/80 mmHg. His jugular venous pressure was not elevated and his pedal edema was slightly reduced. There were no rales at both bases. A faint gallop was audible. A brief apical systolic murmur of mitral regurgitation was also audible. Labs show a stable renal function and normal potassium level. I have increased his dose of enalapril to 5 mg. The patient can be discharged tomorrow if he continues to show present degree of steady improvement. Objective - Vital Signs/Intake and Output Vital Signs (last 24 hours): Temp Pulse Resp BP Pulse Ox 97.9 F 80 20 137/76 100 01/05/18 08:29 01/05/18 08:29 01/05/18 08:29 01/05/18 08:29 01/05/18 08:29 - Medications Medications: Current Medications Albuterol/Ipratropium (Duoneb 3 Mg/0.5 Mg (3 Ml) Ud) 3 ml INH RQ4 PRN PRN Reason: Shortness of Breath Furosemide (Lasix) 80 mg IVP BID [facility] Last Admin: 01/04/18 16:19 Dose: 80 mg Hydralazine HCl (Apresoline) 25 mg PO Q8 [facility] Last Admin: 01/05/18 01:09 Dose: 25 mg Milrinone Lactate/Dextrose (Primacor 20mg/100ml D5w) 100 mls @ 2.2 mls/hr IV .Q24H [facility]; Protocol Last Admin: 01/04/18 08:22 Dose: 2.2 mls/hr Isosorbide Dinitrate (Isordil) 20 mg PO TID [facility] Last Admin: 01/04/18 16:19 Dose: 20 mg Metoprolol Succinate (Toprol Xl) 25 mg PO DAILY [facility] Last Admin: 01/04/18 08:29 Dose: 25 mg Morphine Sulfate (Morphine) 2 mg IVP Q4 PRN PRN Reason: Pain, severe (8-10) Last Admin: 01/05/18 06:01 Dose: 2 mg Spironolactone (Aldactone) 50 mg PO BID [facility] Last Admin: 01/04/18 16:18 Dose: 50 mg Zolpidem Tartrate (Ambien) 5 mg PO HS PRN PRN Reason: Insomnia Last Admin: 01/04/18 22:45 Dose: 5 mg - Labs Labs: 01/03/18 04:20 01/05/18 05:01 PT 15.6 Seconds (9.8-13.1) H 12/31/17 12:47 INR 1.4 12/31/17 12:47 APTT 50.7 Seconds (25.6-37.1) H 12/31/17 12:47
[2018-01-05] MEDS: Metoprolol Succinate 25 mg XL Tab PO SCH (11:29)
--- NOTE | 2018-01-05 20:47 | CP.PCM.PN ---
Subjective - Date & Time of Evaluation Date of Evaluation: 01/04/18 Time of Evaluation: 13:40 Objective - Vital Signs/Intake and Output Vital Signs (last 24 hours): Temp Pulse Resp BP Pulse Ox 97.6 F 80 16 101/72 99 01/05/18 19:44 01/05/18 19:44 01/05/18 19:44 01/05/18 19:44 01/05/18 19:44 Intake and Output: 01/05/18 01/06/18 18:59 06:59 Intake Total 776 Output Total 1999 Balance -1224 - Medications Medications: Current Medications Albuterol/Ipratropium (Duoneb 3 Mg/0.5 Mg (3 Ml) Ud) 3 ml INH RQ4 PRN PRN Reason: Shortness of Breath Enalapril Maleate (Vasotec) 5 mg PO DAILY [facility] Furosemide (Lasix) 80 mg IVP BID [facility] Last Admin: 01/05/18 17:33 Dose: 80 mg Hydralazine HCl (Apresoline) 25 mg PO Q8 [facility] Last Admin: 01/05/18 17:32 Dose: 25 mg Milrinone Lactate/Dextrose (Primacor 20mg/100ml D5w) 100 mls @ 2.2 mls/hr IV .Q24H [facility]; Protocol Last Admin: 01/04/18 08:22 Dose: 2.2 mls/hr Isosorbide Dinitrate (Isordil) 20 mg PO TID [facility] Last Admin: 01/05/18 17:32 Dose: 20 mg Metoprolol Succinate (Toprol Xl) 25 mg PO DAILY [facility] Last Admin: 01/05/18 11:29 Dose: 25 mg Morphine Sulfate (Morphine) 2 mg IVP Q4 PRN PRN Reason: Pain, severe (8-10) Last Admin: 01/05/18 18:53 Dose: 2 mg Spironolactone (Aldactone) 50 mg PO BID [facility] Last Admin: 01/05/18 17:32 Dose: 50 mg Zolpidem Tartrate (Ambien) 5 mg PO HS PRN PRN Reason: Insomnia Last Admin: 01/04/18 22:45 Dose: 5 mg - Labs Labs: 01/03/18 04:20 01/05/18 05:01 PT 15.6 Seconds (9.8-13.1) H 12/31/17 12:47 INR 1.4 12/31/17 12:47 APTT 50.7 Seconds (25.6-37.1) H 12/31/17 12:47
--- NOTE | 2018-01-05 20:48 | CP.PCM.PN ---
Subjective - Date & Time of Evaluation Date of Evaluation: 01/05/18 Time of Evaluation: 13:05 - Subjective Subjective: Seen and examined at the bed side. Less dyspnea at rest. Leg swelling less and good urine output. On Lasix 80mg IV Q12hrs. Cardiology follow up appreciated. Objective - Vital Signs/Intake and Output Vital Signs (last 24 hours): Temp Pulse Resp BP Pulse Ox 97.6 F 80 16 101/72 99 01/05/18 19:44 01/05/18 19:44 01/05/18 19:44 01/05/18 19:44 01/05/18 19:44 Intake and Output: 01/05/18 01/06/18 18:59 06:59 Intake Total 776 Output Total 1999 Balance -1224 - Medications Medications: Current Medications Albuterol/Ipratropium (Duoneb 3 Mg/0.5 Mg (3 Ml) Ud) 3 ml INH RQ4 PRN PRN Reason: Shortness of Breath Enalapril Maleate (Vasotec) 5 mg PO DAILY [facility] Furosemide (Lasix) 80 mg IVP BID [facility] Last Admin: 01/05/18 17:33 Dose: 80 mg Hydralazine HCl (Apresoline) 25 mg PO Q8 [facility] Last Admin: 01/05/18 17:32 Dose: 25 mg Milrinone Lactate/Dextrose (Primacor 20mg/100ml D5w) 100 mls @ 2.2 mls/hr IV .Q24H [facility]; Protocol Last Admin: 01/04/18 08:22 Dose: 2.2 mls/hr Isosorbide Dinitrate (Isordil) 20 mg PO TID [facility] Last Admin: 01/05/18 17:32 Dose: 20 mg Metoprolol Succinate (Toprol Xl) 25 mg PO DAILY [facility] Last Admin: 01/05/18 11:29 Dose: 25 mg Morphine Sulfate (Morphine) 2 mg IVP Q4 PRN PRN Reason: Pain, severe (8-10) Last Admin: 01/05/18 18:53 Dose: 2 mg Spironolactone (Aldactone) 50 mg PO BID [facility] Last Admin: 01/05/18 17:32 Dose: 50 mg Zolpidem Tartrate (Ambien) 5 mg PO HS PRN PRN Reason: Insomnia Last Admin: 01/04/18 22:45 Dose: 5 mg - Labs Labs: 01/03/18 04:20 01/05/18 05:01 PT 15.6 Seconds (9.8-13.1) H 12/31/17 12:47 INR 1.4 12/31/17 12:47 APTT 50.7 Seconds (25.6-37.1) H 12/31/17 12:47 - Constitutional Appears: No Acute Distress - Head Exam Head Exam: ATRAUMATIC, NORMAL INSPECTION, NORMOCEPHALIC - Eye Exam Eye Exam: EOMI, Normal appearance, PERRL Pupil Exam: NORMAL ACCOMODATION, PERRL - ENT Exam ENT Exam: Mucous Membranes Moist, Normal Exam - Neck Exam Neck Exam: Full ROM, Normal Inspection. absent: Lymphadenopathy - Respiratory Exam Respiratory Exam: Clear to Ausculation Bilateral, NORMAL BREATHING PATTERN - Cardiovascular Exam Cardiovascular Exam: REGULAR RHYTHM, +S1, +S2. absent: Murmur - GI/Abdominal Exam GI & Abdominal Exam: Soft, Normal Bowel Sounds. absent: Tenderness - Extremities Exam Extremities Exam: Normal Capillary Refill, Normal Inspection, Pedal Edema. 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
[2018-01-06 06:20] LABS: BLOOD UREA NITROGEN 46 mg/dl (9-20); CALCIUM 9.4 mg/dL (8.4-10.2); GFR NON-AFRICAN AMERICAN 54
--- NOTE | 2018-01-06 09:31 | CP.PCM.PN ---
Subjective - Date & Time of Evaluation Date of Evaluation: 01/06/18 Time of Evaluation: 08:50 - Subjective Subjective: The patient admits to having had fair amount of diuresis over last 24 hours. The patient reports significant improvement on his dyspnea on exertion. Telemetry shows steady sinus rhythm with rare isolated premature ventricular beats and a heart rate which was physiological. Blood pressure was 122/90 mmHg. His jugular venous pressure was not elevated and his pedal edema was markedly reduced since he came to the hospital. There were no rales. There was a faint gallop. Lab data shows stable BUN/creatinine and normal electrolytes. The patient may be allowed to return home(on present schedule of medications) to be looked after by his cardiologists who have enrolled him in the registry for cardiac transplant. Objective - Vital Signs/Intake and Output Vital Signs (last 24 hours): Temp Pulse Resp BP Pulse Ox 97.4 F L 77 19 123/90 99 01/06/18 05:27 01/06/18 05:27 01/06/18 05:27 01/06/18 05:27 01/06/18 05:27 - Medications Medications: Current Medications Albuterol/Ipratropium (Duoneb 3 Mg/0.5 Mg (3 Ml) Ud) 3 ml INH RQ4 PRN PRN Reason: Shortness of Breath Enalapril Maleate (Vasotec) 5 mg PO DAILY [facility] Furosemide (Lasix) 80 mg IVP BID [facility] Last Admin: 01/05/18 17:33 Dose: 80 mg Hydralazine HCl (Apresoline) 25 mg PO Q8 [facility] Last Admin: 01/06/18 01:04 Dose: 25 mg Milrinone Lactate/Dextrose (Primacor 20mg/100ml D5w) 100 mls @ 2.2 mls/hr IV .Q24H [facility]; Protocol Last Admin: 01/04/18 08:22 Dose: 2.2 mls/hr Isosorbide Dinitrate (Isordil) 20 mg PO TID [facility] Last Admin: 01/05/18 17:32 Dose: 20 mg Metoprolol Succinate (Toprol Xl) 25 mg PO DAILY [facility] Last Admin: 01/05/18 11:29 Dose: 25 mg Morphine Sulfate (Morphine) 2 mg IVP Q4 PRN PRN Reason: Pain, severe (8-10) Last Admin: 01/06/18 04:39 Dose: 2 mg Spironolactone (Aldactone) 50 mg PO BID [facility] Last Admin: 01/05/18 17:32 Dose: 50 mg Zolpidem Tartrate (Ambien) 5 mg PO HS PRN PRN Reason: Insomnia Last Admin: 01/06/18 01:04 Dose: 5 mg - Labs Labs: 01/03/18 04:20 01/06/18 05:45 PT 15.6 Seconds (9.8-13.1) H 12/31/17 12:47 INR 1.4 12/31/17 12:47 APTT 50.7 Seconds (25.6-37.1) H 12/31/17 12:47
[2018-01-06] MEDS: Metoprolol Succinate 25 mg XL Tab PO SCH (13:00)
--- NOTE | 2018-01-06 22:08 | CP.PCM.PN ---
Subjective - Date & Time of Evaluation Date of Evaluation: 01/06/18 Time of Evaluation: 16:10 - Subjective Subjective: Seen and examined at the bed side. Less Legs swelling and Dyspnea. Membership Sales Manager Cleared he patient for D/c home. PT/OT evaluated the patient and recommended [facility] but patient prefers to get outpatient PT/OT. Referred to for arrangement, and Advance D/c planning Home for tomorrow. Denies chest pain. Objective - Vital Signs/Intake and Output Vital Signs (last 24 hours): Temp Pulse Resp BP Pulse Ox 97.1 F L 77 17 93/66 L 99 01/06/18 20:45 01/06/18 20:45 01/06/18 20:45 01/06/18 20:45 01/06/18 20:45 - Medications Medications: Current Medications Albuterol/Ipratropium (Duoneb 3 Mg/0.5 Mg (3 Ml) Ud) 3 ml INH RQ4 PRN PRN Reason: Shortness of Breath Enalapril Maleate (Vasotec) 5 mg PO DAILY [facility] Last Admin: 01/06/18 13:53 Dose: 5 mg Furosemide (Lasix) 80 mg IVP BID [facility] Last Admin: 01/06/18 16:54 Dose: 80 mg Hydralazine HCl (Apresoline) 25 mg PO Q8 [facility] Last Admin: 01/06/18 18:40 Dose: 25 mg Milrinone Lactate/Dextrose (Primacor 20mg/100ml D5w) 100 mls @ 2.2 mls/hr IV .Q24H [facility]; Protocol Last Admin: 01/04/18 08:22 Dose: 2.2 mls/hr Isosorbide Dinitrate (Isordil) 20 mg PO TID [facility] Last Admin: 01/06/18 18:41 Dose: 20 mg Metoprolol Succinate (Toprol Xl) 25 mg PO DAILY [facility] Last Admin: 01/06/18 13:00 Dose: 25 mg Morphine Sulfate (Morphine) 2 mg IVP Q4 PRN PRN Reason: Pain, severe (8-10) Last Admin: 01/06/18 20:44 Dose: 2 mg Spironolactone (Aldactone) 50 mg PO BID [facility] Last Admin: 01/06/18 18:40 Dose: 50 mg Zolpidem Tartrate (Ambien) 5 mg PO HS PRN PRN Reason: Insomnia Last Admin: 01/06/18 01:04 Dose: 5 mg - Labs Labs: 01/03/18 04:20 01/06/18 05:45 PT 15.6 Seconds (9.8-13.1) H 12/31/17 12:47 INR 1.4 12/31/17 12:47 APTT 50.7 Seconds (25.6-37.1) H 12/31/17 12:47 Assessment and Plan (1) CHF exacerbation Assessment & Plan: Non-Ischemic DCM with NYHA Class III-IV BL LE Edema- Improving ACS- Ruled out O2 Via [place] Milrinone Infusion 2.2 ml/hr IV Lasix BB, Digoxin, Enalapril, Aldactone, Hydralazine and Isosorbide Monitor I/O Daily Weight Cardiology on board PT/OT eval Status: Resolved Priority: High (2) Acute kidney injury- Resolved Assessment and Plan: Avoid Nephrotoxic Meds Monitor BMP Status: Acute Priority: Medium (3) Essential (primary) hypertension Continue Current Care (4) DVT Prophylaxis Status: Acute Status: Acute
[2018-01-07 05:37] LABS: BLOOD UREA NITROGEN 49 mg/dl (9-20); CALCIUM 9.4 mg/dL (8.4-10.2); GFR NON-AFRICAN AMERICAN 50
[2018-01-07] MEDS ORDERED: Milrinone 20mg/100ml D5W 100 ML IV SCH (09:00)
[2018-01-07] MEDS: Metoprolol Succinate 25 mg XL Tab PO SCH (10:37)
[2018-01-07] MEDS: Milrinone 20mg/100ml D5W 100 ML IV SCH (10:54)
[2018-01-08] MEDS: Metoprolol Succinate 25 mg XL Tab PO SCH (08:29)
[2018-01-08 09:43] VITALS: RESP 20
[2018-01-08] MEDS: Milrinone 20mg/100ml D5W 100 ML IV SCH (10:55)
[2018-01-08 13:39] VITALS: BP 107/86; PULSE 80; TEMP 97.3; O2SAT 100
--- NOTE | 2018-01-09 01:01 | CP.PCM.PN ---
Subjective - Date & Time of Evaluation Date of Evaluation: 01/07/18 Time of Evaluation: 19:15 Objective - Vital Signs/Intake and Output Vital Signs (last 24 hours): Temp Pulse Resp BP Pulse Ox 97.3 F L 80 20 107/86 100 01/08/18 13:38 01/08/18 13:38 01/08/18 13:38 01/08/18 13:38 01/08/18 13:38 - Labs Labs: 01/03/18 04:20 01/07/18 04:15 PT 15.6 Seconds (9.8-13.1) H 12/31/17 12:47 INR 1.4 12/31/17 12:47 APTT 50.7 Seconds (25.6-37.1) H 12/31/17 12:47 Assessment and Plan (1) CHF exacerbation Status: Acute
--- NOTE | 2018-01-09 01:01 | CP.PCM.DIS ---
Provider - Provider Date of Admission: 12/31/17 15:24 Attending physician: Lynn Harvey MD Time Spent in preparation of Discharge (in minutes): 25 Diagnosis - Discharge Diagnosis (1) CHF exacerbation Status: Acute Hospital Course - Lab Results Lab Results: Most Recent Lab Values WBC 10.7 K/uL (4.8-10.8) 01/03/18 04:20 RBC 5.19 Mil/uL (4.40-5.90) 01/03/18 04:20 Hgb 12.5 g/dL (12.0-18.0) 01/03/18 04:20 Hct 38.9 % (35.0-51.0) 01/03/18 04:20 MCV 75.0 fl (80.0-94.0) L 01/03/18 04:20 MCH 24.2 pg (27.0-31.0) L 01/03/18 04:20 MCHC 32.2 g/dL (33.0-37.0) L 01/03/18 04:20 RDW 20.5 % (11.5-14.5) H 01/03/18 04:20 Plt Count 268 K/uL (130-400) 01/03/18 04:20 MPV 10.4 fl (7.2-11.7) 12/31/17 12:47 Neut % (Auto) 68.6 % (50.0-75.0) 12/31/17 12:47 Lymph % (Auto) 17.9 % (20.0-40.0) L 12/31/17 12:47 [place] % (Auto) 10.6 % (0.0-10.0) H 12/31/17 12:47 Eos % (Auto) 1.8 % (0.0-4.0) 12/31/17 12:47 Baso % (Auto) 1.1 % (0.0-2.0) 12/31/17 12:47 Neut # (Auto) 6.0 K/uL (1.8-7.0) 12/31/17 12:47 Lymph # (Auto) 1.6 K/uL (1.0-4.3) 12/31/17 12:47 [place] # (Auto) 0.9 K/uL (0.0-0.8) H 12/31/17 12:47 Eos # (Auto) 0.2 K/uL (0.0-0.7) 12/31/17 12:47 Baso # (Auto) 0.1 K/uL (0.0-0.2) 12/31/17 12:47 PT 15.6 Seconds (9.8-13.1) H 12/31/17 12:47 INR 1.4 12/31/17 12:47 APTT 50.7 Seconds (25.6-37.1) H 12/31/17 12:47 Sodium 134 mmol/l (132-148) 01/07/18 04:15 Potassium 4.1 MMOL/L (3.6-5.0) 01/07/18 04:15 Chloride 96 mmol/L (98-107) L 01/07/18 04:15 Carbon Dioxide 27 mmol/L (22-30) 01/07/18 04:15 Anion Gap 15 (10-20) 01/07/18 04:15 BUN 49 mg/dl (9-20) H 01/07/18 04:15 Creatinine 1.5 mg/dl (0.8-1.5) 01/07/18 04:15 Est GFR ( Amer) > 60 01/07/18 04:15 Est GFR (Non-Af Amer) 50 01/07/18 04:15 Random Glucose 129 mg/dL (75-110) H 01/07/18 04:15 Calcium 9.4 mg/dL (8.4-10.2) 01/07/18 04:15 Phosphorus 4.8 mg/dl (2.5-4.5) H 01/01/18 10:47 Magnesium 1.6 MG/DL (1.6-2.3) 01/02/18 13:22 Total Bilirubin 2.7 mg/dl (0.2-1.3) H 01/01/18 10:47 AST 29 U/L (17-59) 01/01/18 10:47 ALT 36 U/L (21-72) 01/01/18 10:47 Alkaline Phosphatase 150 U/L (38-126) H 01/01/18 10:47 Troponin I 0.0330 ng/mL (0.00-0.120) 01/01/18 17:39 NT-Pro-B Natriuret Pep 3950 pg/ml (0-450) H 01/01/18 10:47 Total Protein 9.0 G/DL (6.3-8.2) H 01/01/18 10:47 Albumin 3.9 g/dL (3.5-5.0) 01/01/18 10:47 Globulin 5.1 gm/dL (2.2-3.9) H 01/01/18 10:47 Albumin/Globulin Ratio 0.8 (1.0-2.1) L 01/01/18 10:47 Digoxin < 0.4 ng/mL (0.8-2.0) L 12/31/17 12:47 Discharge Exam - Head Exam Head Exam: ATRAUMATIC, NORMAL INSPECTION, NORMOCEPHALIC Discharge Plan - Discharge Medications Prescriptions: Milrinone 20mg/100ml D5W [Primacor 20mg/100ml D5W] 2.2 ml IV ASDIR #1 bag - Follow Up Plan Condition: FAIR Disposition: HOME/ ROUTINE Instructions: Heart Failure, Adult (DC), Chest Pain (DC) Additional Instructions: pt has a follow up visit with on 01/20/18 at 2:00pm.([facility] office) Referrals: Ignacio Victor MD [Staff Provider] - Reza Saez MD [Non-Staff] -
== END 2018-01-08 14:29 | disposition home or self-care (01) | DRG 292 ==
LOC: H.ER 11:38 → H.ERHOLD 15:24 → H.TEL 18:19
PROVIDERS: ADMIT Internal Medicine; ATTEND Internal Medicine
PROC: 3E02340 Introduction of Influenza Vaccine into Muscle, Percutaneous Approach (ICD-10-PCS; principal; 2018-01-01)
PROC: 3E0234Z Introduction of Serum, Toxoid and Vaccine into Muscle, Percutaneous Approach (ICD-10-PCS; 2018-01-01)
DX: I11.0 Hypertensive heart disease with heart failure (principal); N17.9 Acute kidney failure, unspecified; I50.23 Acute on chronic systolic (congestive) heart failure; Z76.82 Awaiting organ transplant status; Z87.891 Personal history of nicotine dependence; Z95.0 Presence of cardiac pacemaker; I34.0 Nonrheumatic mitral (valve) insufficiency; I42.0 Dilated cardiomyopathy; Z23 Encounter for immunization; E87.6 Hypokalemia

== ENCOUNTER 2018-02-11 16:37 | Inpatient (IN) | payer MEDICARE, MEDICAID ==
[2018-02-11 16:38] VITALS: BMI 35.9
[2018-02-11 17:19] LABS: BASO # 0.2 K/uL (0.0-0.2); BASO % 1.7 % (0.0-2.0); EOS # 0.2 K/uL (0.0-0.7); EOS % 2.2 % (0.0-4.0); LYMPH # 1.2 K/uL (1.0-4.3); LYMPH % 12.7 % (20.0-40.0); MEAN CELL VOLUME 73.9 fl (80.0-94.0); MEAN CORPUSCULAR HEMOGLOBIN 23.4 pg (27.0-31.0); MEAN CORPUSCULAR HGB CONC 31.7 g/dL (33.0-37.0); MEAN PLATELET VOLUME 9.2 fl (7.2-11.7); MONO # 0.6 K/uL (0.0-0.8); MONO % 6.1 % (0.0-10.0); NEUT # 7.1 K/uL (1.8-7.0); NEUT % 77.3 % (50.0-75.0); NRBC % 0.1 % (0.0-0.0); RBC 5.54 Mil/uL (4.40-5.90); RED CELL DISTRIBUTION WIDTH 23.7 % (11.5-14.5); WHITE BLOOD COUNT 9.1 K/uL (4.8-10.8)
[2018-02-11 17:34] LABS: ALB/GLOB RATIO 0.8 (1.0-2.1); ALBUMIN 4.1 g/dL (3.5-5.0); ALT/SGPT 28 U/L (21-72); AST/SGOT 46 U/L (17-59); BLOOD UREA NITROGEN 18 mg/dl (9-20); CALCIUM 9.6 mg/dL (8.4-10.2); GFR NON-AFRICAN AMERICAN > 60
[2018-02-11 17:47] LABS: B-TYPE NATRIURETIC PEPTIDE 1810 pg/ml (0-450)
--- NOTE | 2018-02-11 17:55 | RAD ---
Date of service: 02/11/2018 HISTORY: SOB hx CHF COMPARISON: 12/31/2017. TECHNIQUE: Chest PA and lateral FINDINGS: LUNGS: No active pulmonary disease. PLEURA: No significant pleural effusion identified. No pneumothorax apparent. CARDIOVASCULAR: No aortic atherosclerotic calcification present. Cardiomegaly. No evidence of acute, significant cardiovascular disease.. Position/ configuration of pacemaker Satisfactory. Venous access catheter in stable, satisfactory position. No pulmonary vascular congestion. OSSEOUS STRUCTURES: No significant abnormalities. VISUALIZED UPPER ABDOMEN: Normal. OTHER FINDINGS: None. IMPRESSION: No active disease. No significant interval change compared to the prior examination(s).
[2018-02-11 18:02] LABS: INR 1.3; PROTHROMBIN TIME 14.9 Seconds (9.8-13.1)
[2018-02-11 18:05] LABS: PARTIAL THROMBOPLASTIN TIME 35.8 Seconds (25.6-37.1)
--- NOTE | 2018-02-11 18:19 | ED PDOC ---
HPI: SOB/CHF/COPD Time Seen by Provider: 02/11/18 16:54 Chief Complaint (Nursing): Chest Pain Chief Complaint (Provider): shortness of breath, chest pain History Per: Patient History/Exam Limitations: no limitations Onset/Duration Of Symptoms: Gradual Current Symptoms Are (Timing): Still Present Exacerbating Factor(s): Exertion, Laying Flat Current Respiratory Medications: See Home Med List Severity: Severe Recently: Hospitalized Additional Complaint(s): 47yo male hx end stage CHF being evaluated for heart transplant, on outpatient milrinone infusion presents c/o worsening dyspnea, chest pain, leg swelling, orthopnea and weakness. Also notes productive cough and mild headache. PMD- none, sees whizzer at [facility] Past Medical History Reviewed: Historical Data, Nursing Documentation, Vital Signs Vital Signs: Last Vital Signs Temp 97.8 F 02/11/18 16:50 Pulse 116 H 02/11/18 16:50 Resp 20 02/11/18 16:50 BP 121/91 H 02/11/18 17:44 Pulse Ox 95 02/11/18 16:50 - Medical History PMH: CHF, HTN Denies: HIV, Chronic Kidney Disease - Surgical History Surgical History: Pacemaker (defib) - Family History Family History: States: Unknown Family Hx - Living Arrangements Living Arrangements: Other - Social History Alcohol: None Drugs: Denies - Home Medications Home Medications: Ambulatory Orders Medication Instructions Recorded Bumetanide [Bumex] 2 mg PO BID 02/11/18 Carvedilol [Coreg] 12.5 mg PO Q12 02/11/18 Colchicine [Colcrys] 0.6 mg PO DAILY 02/11/18 Digoxin 125 mcg PO DAILY 02/11/18 Ferrous Sulfate [Feosol] 325 mg PO Q12 02/11/18 Milrinone 20mg/100ml D5W [Primacor 2.1 ml IV ASDIR 02/11/18 20mg/100ml D5W] - Allergies Allergies/Adverse Reactions: Allergies Allergy/AdvReac Type Severity Reaction Status Date / Time No Known Allergies Allergy Unverified 12/01/17 19:33 Review of Systems Constitutional: Positive for: Chills. Negative for: Fever Cardiovascular: Positive for: Chest Pain, Palpitations, Orthopnea, Paroxysmal Noc. Dyspnea, Edema, Light Headedness Respiratory: Positive for: Cough, Shortness of Breath, SOB with Exertion Gastrointestinal: Negative for: Abdominal Pain Genitourinary Male: Negative for: Dysuria Musculoskeletal: Negative for: Neck Pain Skin: Negative for: Rash, Lesions Neurological: Negative for: Weakness, Numbness, Headache Psych: Positive for: Anxiety. Negative for: Suicidal ideation Physical Exam - Reviewed Nursing Documentation Reviewed: Yes Vital Signs Reviewed: Yes - Physical Exam Appears: Positive for: Non-toxic Head Exam: Positive for: ATRAUMATIC, NORMAL INSPECTION, NORMOCEPHALIC Skin: Positive for: Warm, Pallor Eye Exam: Positive for: EOMI, Normal appearance, PERRL ENT: Positive for: Normal ENT Inspection Neck: Positive for: Normal, Painless ROM Cardiovascular/Chest: Positive for: Regular Rate, Rhythm Respiratory: Positive for: Decreased Breath Sounds, Respiratory Distress (mild) Pulses-Radial (L): 2+ Pulses-Radial (R): 2+ Gastrointestinal/Abdominal: Positive for: Soft. Negative for: Tenderness Back: Positive for: Normal Inspection Extremity: Positive for: Tenderness, Swelling (+4 b/l nonpitting edema) Neurologic/Psych: Positive for: Alert, Oriented. Negative for: Motor/Sensory Deficits - Laboratory Results Result Diagrams: 02/11/18 17:05 02/11/18 17:05 - ECG ECG: Positive for: Interpreted By Me ECG Rhythm: Positive for: Sinus Tachycardia, ST/T Changes, Nonspecific Changes Rate: 108 O2 Sat by Pulse Oximetry: 95 - Radiology X-Ray: Read By Radiologist X-Ray Interpretation: No Acute Disease (+CM) Medical Decision Making Medical Decision Making: lasix initiated patients milrinone pump battery in ED, 9volt battery to be obtained Remains dyspneic and requires cardiac monitoring and diuresis. 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 Disposition - Disposition Condition: STABLE
[2018-02-11] MEDS ORDERED: MILRINONE 20 MG/100 ML IV SCH (20:45)
[2018-02-11] MEDS ORDERED: D5W IV SCH (20:45)
[2018-02-11] MEDS: Milrinone 20mg/100ml D5W 100 ML IV SCH (23:04)
[2018-02-12 06:37] LABS: BASO # 0.1 K/uL (0.0-0.2); BASO % 1.2 % (0.0-2.0); EOS # 0.2 K/uL (0.0-0.7); EOS % 2.6 % (0.0-4.0); HEMOGLOBIN 12.7 g/dL (12.0-18.0); LYMPH # 1.4 K/uL (1.0-4.3); LYMPH % 17.5 % (20.0-40.0); MEAN CELL VOLUME 74.1 fl (80.0-94.0); MEAN CORPUSCULAR HEMOGLOBIN 23.3 pg (27.0-31.0); MEAN CORPUSCULAR HGB CONC 31.4 g/dL (33.0-37.0); MEAN PLATELET VOLUME 9.2 fl (7.2-11.7); MONO # 0.7 K/uL (0.0-0.8); MONO % 8.5 % (0.0-10.0); NEUT # 5.8 K/uL (1.8-7.0); NEUT % 70.2 % (50.0-75.0); RBC 5.45 Mil/uL (4.40-5.90); RED CELL DISTRIBUTION WIDTH 23.7 % (11.5-14.5); WHITE BLOOD COUNT 8.2 K/uL (4.8-10.8)
[2018-02-12 06:47] LABS: BLOOD UREA NITROGEN 22 mg/dl (9-20); GFR NON-AFRICAN AMERICAN > 60
[2018-02-12 06:48] LABS: ALB/GLOB RATIO 0.8 (1.0-2.1); ALBUMIN 3.8 g/dL (3.5-5.0); ALT/SGPT 30 U/L (21-72); AST/SGOT 37 U/L (17-59); CALCIUM 9.5 mg/dL (8.4-10.2); HDL CHOLESTEROL 17 MG/DL (30-70)
--- NOTE | 2018-02-12 06:50 | CP.PCM.HP ---
<Robert Verduzcoo - Last Filed: 02/12/18 14:57> History of Present Illness - History of Present Illness History of Present Illness: 47 y/o M with a PMHx of congested heart failure and HTN presented to ED complaining of chest pain, SOB and generalized body aches and weakness that began 2 days ago. Pt believes he has the flu or a viral infection. Pt was diagnosed with heart failure 2 years ago in [place] and does NOT know the etiology, Pt reports a lot of test have been performed but has never been reported what is the cause. At ED, influenza rapid test negative, troponin levels negative x2, p --Pt was seen and examined by bedside with Dr Simmons. Pt reports still complains of SOB which has improved a little. Pt afebrile with NO acute events overnight. PMD: none PMHx: heart failure, HTN and gout. PSHx: denied SHx: stopped tobacco 6 years ago, denies alcohol or rec drugs. Present on Admission - Present on Admission Any Indicators Present on Admission: No Review of Systems - Constitutional Constitutional: absent: Fever, Night Sweats - EENT Nose/Mouth/Throat: absent: Mouth Lesions, Throat Swelling, Tongue Swelling, Facial Pain, Neck Mass - Cardiovascular Cardiovascular: Chest Pain, Edema (lower legs b/l.). absent: Palpitations - Respiratory Respiratory: Dyspnea. absent: Dyspnea on Exertion, Wheezing - Gastrointestinal Gastrointestinal: absent: Abdominal Pain, Nausea, Vomiting - Genitourinary Genitourinary: absent: Dysuria, Flank Pain, Hematuria Past Patient History - Infectious Disease Hx of Infectious Diseases: MRSA - Past Medical History & Family History Past Medical History?: Yes - Past Social History Alcohol: None Drugs: Denies - CARDIAC Hx Congestive Heart Failure: Yes Hx Hypertension: Yes Hx Pacemaker: Yes (defib) - PULMONARY Hx Respiratory Disorders: No - NEUROLOGICAL Hx Neurological Disorder: No - HEENT Hx HEENT Problems: No - RENAL Hx Chronic Kidney Disease: No - ENDOCRINE/METABOLIC Hx Endocrine Disorders: No - HEMATOLOGICAL/ONCOLOGICAL Hx Human Immunodeficiency Virus (HIV): No - INTEGUMENTARY Hx Dermatological Problems: No - MUSCULOSKELETAL/RHEUMATOLOGICAL Hx Musculoskeletal Disorders: No Hx Falls: No - GASTROINTESTINAL Hx Gastrointestinal Disorders: No - GENITOURINARY/GYNECOLOGICAL Hx Genitourinary Disorders: No - PSYCHIATRIC Hx Psychophysiologic Disorder: No Hx Substance Use: No - SURGICAL HISTORY Hx Surgeries: Yes Hx Orthopedic Surgery: Yes (right ankle) - ANESTHESIA Hx Anesthesia: Yes Hx Anesthesia Reactions: No Hx Malignant Hyperthermia: No Meds Allergies/Adverse Reactions: Allergies Allergy/AdvReac Type Severity Reaction Status Date / Time No Known Allergies Allergy Unverified 12/01/17 19:33 Physical Exam - Constitutional Appears: Non-toxic - Head Exam Head Exam: ATRAUMATIC, NORMAL INSPECTION - Eye Exam Eye Exam: Conjunctival injection, EOMI - ENT Exam ENT Exam: Mucous Membranes Moist - Neck Exam Neck exam: Positive for: Full Rom. Negative for: Lymphadenopathy, Meningismus - Respiratory Exam Respiratory Exam: Decreased Breath Sounds, Respiratory Distress (mild, on oxygen by nasal cannula). absent: Rhonchi, Stridor - Cardiovascular Exam Cardiovascular Exam: +S1, +S2 - GI/Abdominal Exam GI & Abdominal Exam: Soft. absent: Rebound, Rigid, Tenderness - Neurological Exam Neurological exam: Alert, Oriented x3 Results - Vital Signs Recent Vital Signs: Last Vital Signs Temp 97.8 F 02/11/18 16:50 Pulse 95 H 02/12/18 05:45 Resp 17 02/12/18 05:45 BP 111/88 02/12/18 05:45 Pulse Ox 98 02/12/18 05:45 - Labs Result Diagrams: 02/12/18 06:15 02/12/18 06:15 Labs: Laboratory Results - last 24 hr 02/11/18 02/11/18 02/11/18 17:05 17:05 17:05 WBC 9.1 RBC 5.54 Hgb 13.0 Hct 41.0 MCV 73.9 L MCH 23.4 L MCHC 31.7 L RDW 23.7 H Plt Count 288 MPV 9.2 Neut % (Auto) 77.3 H Lymph % (Auto) 12.7 L [place] % (Auto) 6.1 Eos % (Auto) 2.2 Baso % (Auto) 1.7 Neut # (Auto) 7.1 H Lymph # (Auto) 1.2 [place] # (Auto) 0.6 Eos # (Auto) 0.2 Baso # (Auto) 0.2 PT 14.9 H INR 1.3 APTT 35.8 Sodium 138 Potassium 4.1 Chloride 105 Carbon Dioxide 25 Anion Gap 12 BUN 18 Creatinine 1.1 Est GFR ( Amer) > 60 Est GFR (Non-Af Amer) > 60 Random Glucose 159 H Calcium 9.6 Total Bilirubin 3.2 H AST 46 ALT 28 Alkaline Phosphatase 164 H Troponin I 0.0370 NT-Pro-B Natriuret Pep 1810 H Total Protein 9.0 H Albumin 4.1 Globulin 4.9 H Albumin/Globulin Ratio 0.8 L Influenza Typ A,B (EIA) 02/11/18 02/11/18 02/12/18 18:44 22:25 06:15 WBC 8.2 RBC 5.45 Hgb 12.7 Hct 40.4 MCV 74.1 L MCH 23.3 L MCHC 31.4 L RDW 23.7 H Plt Count 296 MPV 9.2 Neut % (Auto) 70.2 Lymph % (Auto) 17.5 L [place] % (Auto) 8.5 Eos % (Auto) 2.6 Baso % (Auto) 1.2 Neut # (Auto) 5.8 Lymph # (Auto) 1.4 [place] # (Auto) 0.7 Eos # (Auto) 0.2 Baso # (Auto) 0.1 PT INR APTT Sodium Potassium Chloride Carbon Dioxide Anion Gap BUN Creatinine Est GFR ( Amer) Est GFR (Non-Af Amer) Random Glucose Calcium Total Bilirubin AST ALT Alkaline Phosphatase Troponin I 0.0340 NT-Pro-B Natriuret Pep Total Protein Albumin Globulin Albumin/Globulin Ratio Influenza Typ A,B (EIA) Negative for flu a/b Assessment & Plan - Assessment and Plan (Free Text) Assessment: 47 y/o M with a PMHx of congested heart failure and HTN admitted for evaluation and management of acute CHF exacerbation. PLAN: --Afebrile --Admit to telemetry --Pro-BNP elevated --Echocardiogram --Cardiology consult, Dr Nj. --Home meds resumed. --Continue management as ordered. Case discussed with Dr Iris Dsouza PGY-2 - Date & Time Date: 02/12/18 Time: 09:00 <Sarthak Simmons - Last Filed: 02/13/18 19:56> Results - Vital Signs Recent Vital Signs: Last Vital Signs Temp 96.0 F L 02/13/18 15:44 Pulse 82 02/13/18 15:44 Resp 18 02/13/18 15:44 BP 96/68 L 02/13/18 15:44 Pulse Ox 99 11/15/18 15:44 - Labs Result Diagrams: 02/12/18 06:15 02/12/18 06:15 Labs: Laboratory Results - last 24 hr 02/13/18 02/13/18 04:25 04:25 ESR 29 H Digoxin < 0.4 L Assessment & Plan - Assessment and Plan (Free Text) Assessment: Patient was personally seen and examined by me in rounds with residents. Available labs and diagnostic data reviewed. Case, Patient's condition and management plan discussed with residents in rounds. Agree with resident's progress note. Plan: As ordered.
[2018-02-12 06:56] LABS: LDL CHOLESTEROL 59 mg/dL (0-129)
[2018-02-12 07:02] LABS: T4 8.18 ug/dl (5.5-11.0)
[2018-02-12 07:15] LABS: T3 0.792 nmol/L (1.49-2.60)
[2018-02-12] MEDS ORDERED: Potassium Chloride 20 mEq/15 ml LIQ UD PO ONE (08:30)
[2018-02-12] MEDS ORDERED: Potassium Chloride 20 mEq ER Tab PO ONE (09:30)
--- NOTE | 2018-02-12 09:32 | CARD ---
APPROVED REPORT Date of service: 02/11/2018 EKG Measurement Heart [id number] <Conclusion> Sinus tachycardia Incomplete right bundle branch block Possible Inferior infarct, age undetermined Poor R wave progression Abnormal ECG
[2018-02-12] MEDS: Enoxaparin 40 mg Syringe SC SCH (09:36)
[2018-02-12] MEDS: Digoxin 125 mcg (0.125 mg) Tab PO SCH (09:37)
[2018-02-12] MEDS: Milrinone 20mg/100ml D5W 100 ML IV SCH (11:13)
--- NOTE | 2018-02-12 16:10 | CP.PCM.CON ---
History of Present Illness - History of Present Illness History of Present Illness: 47 YO MALE WITH PROGRESSIVE DYSPNEA X 2 WEEKS. PT ADMITS TO INCREASE CHINYERE AND ORTHOPNEA. NO CP OR PALP. PT HAS HX OF NIDCM WITH LOW EF AND IS AWAITING TRANSPLANT. ON MILRINONE PUMP AT HOME. PT DENIES DIETARY INDISCRETION AND OR MED NONCOMPLIANCE. PT STATES HE HAD URTI WITH COUGH RECENTLY. Review of Systems - Constitutional Constitutional: As Per HPI, Weight Gain. absent: Anorexia, Chills, Daytime Sleepiness, Excessive Sweating, Fatigue, Fever, Frequent Falls, Headache, Increased Appetite, Lethargy, Malaise, Night Sweats, Snoring, Sleep Apnea, Weight Loss, Weakness, Other - EENT Eyes: As Per HPI. absent: Blind Spots, Blurred Vision, Change in Vision, Decreased Night Vision, Diplopia, Discharge, Dry Eye, Exophthalmos, Floaters, Irritation, Itchy Eyes, Loss of Peripheral Vision, Pain, Photophobia, Requires Corrective Lenses, Sees Flashes, Spots in Vision, Tunnel Vision, Other Visual Disturbances, Loss of Vision, Other Ears: As Per HPI. absent: Decreased Hearing, Ear Discharge, Ear Pain, Tinnitus, Abnormal Hearing, Disequilibrium, Dizziness, Other Nose/Mouth/Throat: As Per HPI. absent: Epistaxis, Nasal Congestion, Nasal Discharge, Nasal Obstruction, Nasal Trauma, Nose Pain, Post Nasal Drip, Sinus Pain, Sinus Pressure, Bleeding Gums, Change in Voice, Dental Pain, Dry Mouth, Dysphagia, Halitosis, Hoarsness, Lip Swelling, Mouth Lesions, Mouth Pain, Od ynophagia, Sore Throat, Throat Swelling, Tongue Swelling, Facial Pain, Neck Pain, Neck Mass, Other - Cardiovascular Cardiovascular: As Per HPI, Dyspnea, Dyspnea on Exertion, Leg Edema, Orthopnea, Paroxysmal Nocturnal Dyspnea. absent: Acrocyanosis, Chest Pain, Chest Pain at Rest, Chest Pain with Activity, Claudication, Diaphoresis, Edema, Irregular Heart Rhythm, Pain Radiating to Arm/Neck/Jaw, Leg Ulcers, Lightheadedness, Palpitations, Pedal Edema, Radiating Pain, Rapid Heart Rate, Slow Heart Rate, Syncope, Other - Respiratory Respiratory: As Per HPI, Cough, Dyspnea on Exertion, Chest Congestion. absent: Dyspnea, Hemoptysis, Wheezing, Snoring, Stridor, Pain on Inspiration, Excessive Mucous Production, Change in Mucous Color, Pain with Coughing, Other - Gastrointestinal Gastrointestinal: As Per HPI. absent: Abdominal Pain, Belching, Bloating, Change in Bowel Habits, Change in Stool Character, Coffee Ground Emesis, Constipation, Cramping, Diarrhea, Dyspepsia, Dysphagia, Early Satiety, Excessive Flatus, Fecal Incontinence, Heartburn, Hematemesis, Hematochezia, Loose Stools, Melena, Nausea, Odynophagia, Temesmus, Vomiting, Other - Genitourinary Genitourinary: As Per HPI. absent: Change in Urinary Stream, Difficulty Urinating, Dysuria, Flank Pain, Hematuria, Pyuria, Nocturia, Urinary Incontinence, Urinary Frequency, Urinary Hesitance, Urinary Urgency, Voiding Freq/Small Amts, Freq UTI, Hx Renal/Bladder Calculi, Hx /Renal Surgery, Bladder Distension, Other - Reproductive: Male Reproductive:Male: As Per HPI - Musculoskeletal Musculoskeletal: As Per HPI. absent: Abnormal Gait, Arthralgias, Atrophy, Back Pain, Deformity, Joint Swelling, Limited Range of Motion, Loss of Height, Muscle Cramps, Muscle Weakness, Myalgias, Neck Pain, Numbness, Radiating Pain into Limb, Stiffness, Tingling, Other - Integumentary Integumentary: As Per HPI. absent: Acne, Alopecia, Bleeding Lesions, Change in Hair, Change in Nails, Change in Pigmentation, Changing Lesions, Dry Skin, Erythema, Furuncle, Hirsutism, Lesions, New Lesions, Non-Healing Lesions, Photosensitivity, Pruritus, Rash, Skin Pain, Skin Ulcer, Sores, Striae, Swelling, Unusual Bruising, Wounds, Jaundice, Other - Neurological Neurological: As Per HPI. absent: Abnormal Gait, Abnormal Hearing, Abnormal Movements, Abnormal Speech, Behavioral Changes, Burning Sensations, Confusion, Convulsions, Disequilibrium, Dizziness, Numbness, Focal Weakness, Frequent Falls, Headaches, Lack of Coordination, Loss of Vision, Memory Loss, Paresthesias, Radicular Pain, Restless Legs, Sensory Deficit, Syncope, Tingling, Tremor, Vertigo, Weakness, Other Visual Disturbances, Other - Psychiatric Psychiatric: As Per HPI. absent: Abnormal Sleep Pattern, Anhedonia, Anxiety, Auditory Hallucinations, Behavioral Changes, Change in Appetite, Change in Libido, Confusion, Depression, Difficulty Concentrating, Hallucinations, Homicidal Ideation, Hopelessness, Irritability, Memory Loss, Mood Swings, Panic Attacks, Paranoia, Suicidal Ideation, Visual Hallucinations, Tactile Hallucinations, Other - Endocrine Endocrine: As Per HPI. absent: Change in Body Appearance, Change in Libido, Cold Intolorance, Deepening of Voice, Excessive Sweating, Fatigue, Flushing, Heat Intolorance, Increase in Ring/Shoe/Hat Size, Palpitations, Polydipsia, Polyphagia, Polyuria, Other - Hematologic/Lymphatic Hematologic: As Per HPI. absent: Easy Bleeding, Easy Bruising, Lymphadenopathy, Other Past Patient History - Infectious Disease Hx of Infectious Diseases: MRSA - Past Medical History & Family History Past Medical History?: Yes - Past Social History Smoking Status: Never Smoked Chewing Tobacco Use: No Cigar Use: No Alcohol: None Drugs: Denies Home Situation {Lives}: Alone Domestic Violence: Negative - CARDIAC Hx Congestive Heart Failure: Yes Hx Hypertension: Yes Hx Pacemaker: Yes (defib) - PULMONARY Hx Respiratory Disorders: No - NEUROLOGICAL Hx Neurological Disorder: No - HEENT Hx HEENT Problems: No - RENAL Hx Chronic Kidney Disease: No - ENDOCRINE/METABOLIC Hx Endocrine Disorders: No - HEMATOLOGICAL/ONCOLOGICAL Hx Human Immunodeficiency Virus (HIV): No - INTEGUMENTARY Hx Dermatological Problems: No - MUSCULOSKELETAL/RHEUMATOLOGICAL Hx Musculoskeletal Disorders: No Hx Falls: No - GASTROINTESTINAL Hx Gastrointestinal Disorders: No - GENITOURINARY/GYNECOLOGICAL Hx Genitourinary Disorders: No - PSYCHIATRIC Hx Psychophysiologic Disorder: No Hx Substance Use: No - SURGICAL HISTORY Hx Surgeries: Yes Hx Orthopedic Surgery: Yes (right ankle) - ANESTHESIA Hx Anesthesia: Yes Hx Anesthesia Reactions: No Hx Malignant Hyperthermia: No Meds Allergies/Adverse Reactions: Allergies Allergy/AdvReac Type Severity Reaction Status Date / Time No Known Allergies Allergy Unverified 12/01/17 19:33 - Medications Medications: Current Medications Acetaminophen (Tylenol 325mg Tab) 650 mg PO Q6 PRN PRN Reason: Fever >100.4 F Bumetanide (Bumex) 2 mg IVP Q12 [facility] Bumetanide (Bumex) 2 mg IVP ONCE ONE Stop: 02/12/18 16:16 Carvedilol (Coreg) 12.5 mg PO Q12 [facility] Last Admin: 02/12/18 09:31 Dose: 12.5 mg Colchicine (Colocrys) 0.6 mg PO DAILY [facility] Last Admin: 02/12/18 09:36 Dose: 0.6 mg Digoxin (Digoxin) 0.125 mg PO DAILY [facility] Last Admin: 02/12/18 09:37 Dose: 0.125 mg Enoxaparin Sodium (Lovenox) 40 mg SC DAILY [facility]; Protocol Last Admin: 02/12/18 09:36 Dose: 40 mg Ferrous Sulfate (Feosol) 325 mg PO Q12 [facility] Last Admin: 02/12/18 09:34 Dose: 325 mg Milrinone Lactate/Dextrose (Primacor 20mg/100ml D5w) 100 mls @ 8.505 mls/hr IV [id number] [facility]; Protocol Last Admin: 02/12/18 11:13 Dose: 8.505 mls/hr Ibuprofen (Motrin Tab) 600 mg PO Q6 PRN PRN Reason: Pain, moderate (4-7) Morphine Sulfate (Morphine) 2 mg IVP Q6 PRN PRN Reason: Pain, severe (8-10) Last Admin: 02/12/18 13:00 Dose: 2 mg Physical Exam - Constitutional Appears: In Acute Distress - Head Exam Head Exam: ATRAUMATIC, NORMAL INSPECTION, NORMOCEPHALIC - Eye Exam Eye Exam: EOMI, Normal appearance, PERRL. absent: Conjunctival injection, Nystagmus, Periorbital swelling, Periorbital tenderness, Scleral icterus Pupil Exam: NORMAL ACCOMODATION, PERRL. absent: Fixed, Irregular, Miosis, Mydriatic, Unequal - ENT Exam ENT Exam: Mucous Membranes Moist, Normal Exam. absent: Mucous Membranes Dry, Normal External Ear Exam, Normal Oropharynx, TM's Normal Bilaterally - Neck Exam Neck exam: Positive for: Normal Inspection. Negative for: Full Rom, Lymphadenopathy, Meningismus, Tenderness, Thyromegaly - Respiratory Exam Respiratory Exam: Decreased Breath Sounds, Rales, Wheezes, Respiratory Distress. absent: Accessory Muscle Use, Chest Wall Tenderness, Clear to Auscultation Bilateral, Prolonged Expiratory Phase, Rhonchi, Stridor, NORMAL BREATHING PATTERN - Cardiovascular Exam Cardiovascular Exam: REGULAR RHYTHM, JVD, +S1, +S2, Systolic Murmur. absent: Bradycardia, Tachycardia, Clicks, Diastolic murmur, Gallop, Irregular Rhythm, RRR, Rubs, +S4 - GI/Abdominal Exam GI & Abdominal Exam: Normal Bowel Sounds, Soft. absent: Bruit, Diminished Bowel Sounds, Distended, Firm, Guarding, Hernia, Hyperactive Bowel Sounds, Hypoactive Bowel Sounds, Mass, Organomegaly, Pulsatile Mass, Rebound, Rigid, Tenderness - Rectal Exam Rectal Exam: Deferred - Extremities Exam Extremities exam: Positive for: normal inspection, pedal edema, pedal pulses present. Negative for: calf tenderness, full ROM, joint swelling, normal capillary refill, tenderness - Back Exam Back exam: NORMAL INSPECTION. absent: CVA tenderness (L), CVA tenderness (R), FULL ROM, muscle spasm, paraspinal tenderness, rash noted, tenderness, vertebral tenderness - Neurological Exam Neurological exam: Alert, CN II-XII Intact, Normal Gait, Oriented x3, Reflexes Normal - Psychiatric Exam Psychiatric exam: Normal Affect, Normal Mood - Skin Skin Exam: Dry, Intact, Normal Color, Warm Results - Vital Signs Recent Vital Signs: Last Vital Signs Temp 97.3 F L 02/12/18 16:03 Pulse 88 02/12/18 16:03 Resp 20 02/12/18 16:03 BP 138/98 H 02/12/18 16:03 Pulse Ox 100 02/12/18 16:03 - Labs Result Diagrams: 02/12/18 06:15 02/12/18 06:15 Labs: Laboratory Results - last 24 hr 02/11/18 02/11/18 02/11/18 17:05 17:05 17:05 WBC 9.1 RBC 5.54 Hgb 13.0 Hct 41.0 MCV 73.9 L MCH 23.4 L MCHC 31.7 L RDW 23.7 H Plt Count 288 MPV 9.2 Neut % (Auto) 77.3 H Lymph % (Auto) 12.7 L [place] % (Auto) 6.1 Eos % (Auto) 2.2 Baso % (Auto) 1.7 Neut # (Auto) 7.1 H Lymph # (Auto) 1.2 [place] # (Auto) 0.6 Eos # (Auto) 0.2 Baso # (Auto) 0.2 PT 14.9 H INR 1.3 APTT 35.8 Sodium 138 Potassium 4.1 Chloride 105 Carbon Dioxide 25 Anion Gap 12 BUN 18 Creatinine 1.1 Est GFR ( Amer) > 60 Est GFR (Non-Af Amer) > 60 Random Glucose 159 H Calcium 9.6 Total Bilirubin 3.2 H AST 46 ALT 28 Alkaline Phosphatase 164 H Troponin I 0.0370 NT-Pro-B Natriuret Pep 1810 H Total Protein 9.0 H Albumin 4.1 Globulin 4.9 H Albumin/Globulin Ratio 0.8 L Triglycerides Cholesterol LDL Cholesterol Direct HDL Cholesterol Vitamin B12 Thyroxine (T4) Total T3 TSH 3rd Generation Influenza Typ A,B (EIA) 02/11/18 02/11/18 02/12/18 18:44 22:25 06:15 WBC 8.2 RBC 5.45 Hgb 12.7 Hct 40.4 MCV 74.1 L MCH 23.3 L MCHC 31.4 L RDW 23.7 H Plt Count 296 MPV 9.2 Neut % (Auto) 70.2 Lymph % (Auto) 17.5 L [place] % (Auto) 8.5 Eos % (Auto) 2.6 Baso % (Auto) 1.2 Neut # (Auto) 5.8 Lymph # (Auto) 1.4 [place] # (Auto) 0.7 Eos # (Auto) 0.2 Baso # (Auto) 0.1 PT INR APTT Sodium Potassium Chloride Carbon Dioxide Anion Gap BUN Creatinine Est GFR ( Amer) Est GFR (Non-Af Amer) Random Glucose Calcium Total Bilirubin AST ALT Alkaline Phosphatase Troponin I 0.0340 NT-Pro-B Natriuret Pep Total Protein Albumin Globulin Albumin/Globulin Ratio Triglycerides Cholesterol LDL Cholesterol Direct HDL Cholesterol Vitamin B12 Thyroxine (T4) Total T3 TSH 3rd Generation Influenza Typ A,B (EIA) Negative for flu a/b 02/12/18 02/12/18 02/12/18 06:15 06:15 06:49 WBC RBC Hgb Hct MCV MCH MCHC RDW Plt Count MPV Neut % (Auto) Lymph % (Auto) [place] % (Auto) Eos % (Auto) Baso % (Auto) Neut # (Auto) Lymph # (Auto) [place] # (Auto) Eos # (Auto) Baso # (Auto) PT INR APTT Sodium 138 Potassium 3.8 Chloride 106 Carbon Dioxide 22 Anion Gap 14 BUN 22 H Creatinine 1.2 Est GFR ( Amer) > 60 Est GFR (Non-Af Amer) > 60 Random Glucose 134 H Calcium 9.5 Total Bilirubin 2.7 H AST 37 ALT 30 Alkaline Phosphatase 149 H Troponin I 0.0250 0.0260 NT-Pro-B Natriuret Pep 1960 H Total Protein 8.6 H Albumin 3.8 Globulin 4.8 H Albumin/Globulin Ratio 0.8 L Triglycerides 51 Cholesterol 70 LDL Cholesterol Direct 59 HDL Cholesterol 17 L Vitamin B12 514 Thyroxine (T4) 8.18 Total T3 0.792 L TSH 3rd Generation 0.83 Influenza Typ A,B (EIA) 02/12/18 13:10 WBC RBC Hgb Hct MCV MCH MCHC RDW Plt Count MPV Neut % (Auto) Lymph % (Auto) [place] % (Auto) Eos % (Auto) Baso % (Auto) Neut # (Auto) Lymph # (Auto) [place] # (Auto) Eos # (Auto) Baso # (Auto) PT INR APTT Sodium Potassium Chloride Carbon Dioxide Anion Gap BUN Creatinine Est GFR ( Amer) Est GFR (Non-Af Amer) Random Glucose Calcium Total Bilirubin AST ALT Alkaline Phosphatase Troponin I 0.0220 NT-Pro-B Natriuret Pep Total Protein Albumin Globulin Albumin/Globulin Ratio Triglycerides Cholesterol LDL Cholesterol Direct HDL Cholesterol Vitamin B12 Thyroxine (T4) Total T3 TSH 3rd Generation Influenza Typ A,B (EIA) - EKG Data EKG Interpreted by: Myself EKG shows normal: Sinus rhythm Assessment & Plan (1) Acute on chronic systolic and diastolic heart failure, NYHA class 4 Status: Acute (2) Non-ischemic cardiomyopathy Status: Acute (3) Essential (primary) hypertension Status: Chronic Priority: Low - Assessment and Plan (Free Text) Plan: bumex iv q12. no dose given today, therefor would give stat 2mg iv now. echo pending monitor lytes check esr and dig monitor bnp cont tele if no improvement then will consider dobutamine and continuous diuretic drip. 63 IN TOTAL CARE TIME
[2018-02-12] MEDS ORDERED: Bumetanide 0.25 MG/ML 10ml inj IV ONE ×3 (17:45→22:00)
[2018-02-13] MEDS ORDERED: guaiFENesin DM 200 mg-20 mg/10 ml UD PO ONE (00:08)
[2018-02-13] MEDS: Milrinone 20mg/100ml D5W 100 ML IV SCH ×2 (00:08→15:39)
[2018-02-13] MEDS ORDERED: Benzocaine/Menthol (Cepacol) Lozenge PO ONE (00:08)
--- NOTE | 2018-02-13 08:31 | CP.PCM.PN ---
<Jonathan Verduzco - Last Filed: 02/13/18 08:28> Subjective - Date & Time of Evaluation Date of Evaluation: 02/13/18 Time of Evaluation: 07:30 - Subjective Subjective: 47 y/o M seen and examined by bedside with Dr Simmons. Pt reports still feeling out of breath but was able to walk to the bathroom. Pt afebrile, tolerating Po iwht NO acute events overnight. Objective - Vital Signs/Intake and Output Vital Signs (last 24 hours): Temp Pulse Resp BP Pulse Ox 97.2 F L 82 20 105/73 97 02/13/18 08:14 02/13/18 08:14 02/13/18 08:14 02/13/18 08:14 02/13/18 08:14 - Medications Medications: Current Medications Acetaminophen (Tylenol 325mg Tab) 650 mg PO Q6 PRN PRN Reason: Fever >100.4 F Carvedilol (Coreg) 12.5 mg PO Q12 [facility] Last Admin: 02/12/18 22:38 Dose: 12.5 mg Colchicine (Colocrys) 0.6 mg PO DAILY [facility] Last Admin: 02/12/18 09:36 Dose: 0.6 mg Digoxin (Digoxin) 0.125 mg PO DAILY [facility] Last Admin: 02/12/18 09:37 Dose: 0.125 mg Enoxaparin Sodium (Lovenox) 40 mg SC DAILY [facility]; Protocol Last Admin: 02/12/18 09:36 Dose: 40 mg Ferrous Sulfate (Feosol) 325 mg PO Q12 [facility] Last Admin: 02/12/18 22:39 Dose: 325 mg Milrinone Lactate/Dextrose (Primacor 20mg/100ml D5w) 100 mls @ 8.505 mls/hr IV .[id number] [facility]; Protocol Last Admin: 02/13/18 00:08 Dose: 0.23 mcg/kg/min, 8 mls/hr Ibuprofen (Motrin Tab) 600 mg PO Q6 PRN PRN Reason: Pain, moderate (4-7) Morphine Sulfate (Morphine) 2 mg IVP Q6 PRN PRN Reason: Pain, severe (8-10) Last Admin: 02/13/18 05:34 Dose: 2 mg - Labs Labs: 02/12/18 06:15 02/12/18 06:15 PT 14.9 Seconds (9.8-13.1) H 02/11/18 17:05 INR 1.3 02/11/18 17:05 APTT 35.8 Seconds (25.6-37.1) 02/11/18 17:05 - Constitutional Appears: Non-toxic - Head Exam Head Exam: ATRAUMATIC, NORMAL INSPECTION - Eye Exam Eye Exam: EOMI - ENT Exam ENT Exam: Mucous Membranes Moist - Neck Exam Neck Exam: Full ROM - Respiratory Exam Respiratory Exam: NORMAL BREATHING PATTERN. absent: Rales, Rhonchi, Wheezes - Cardiovascular Exam Cardiovascular Exam: +S1, +S2 - GI/Abdominal Exam GI & Abdominal Exam: Soft, Normal Bowel Sounds. absent: Distended, Guarding, Tenderness - Extremities Exam Extremities Exam: Pedal Edema (bilaterally. ). absent: Calf Tenderness - Neurological Exam Neurological Exam: Alert, Awake, Oriented x3 Assessment and Plan - Assessment and Plan (Free Text) Assessment: 47 y/o M with a PMHx of congested heart failure and HTN admitted for evaluation and management of acute CHF exacerbation. PLAN: --Afebrile --security monitor --Bumex iv q12. --Pro-BNP elevated, troponin negative x5. --F/U Echocardiogram --Cardiology consult, Dr Nj. --Continue management as ordered. Case discussed with Dr Iris Dsouza PGY-2 <Sarthak Simmons - Last Filed: 02/13/18 19:52> Objective - Vital Signs/Intake and Output Vital Signs (last 24 hours): Temp Pulse Resp BP Pulse Ox 96.0 F L 82 18 96/68 L 99 02/13/18 15:44 02/13/18 15:44 02/13/18 15:44 02/13/18 15:44 02/13/18 15:44 Intake and Output: 02/13/18 02/13/18 11:59 23:59 Intake Total 100 Balance 100 - Medications Medications: Current Medications Acetaminophen (Tylenol 325mg Tab) 650 mg PO Q6 PRN PRN Reason: Fever >100.4 F Carvedilol (Coreg) 12.5 mg PO Q12 [facility] Last Admin: 02/13/18 09:29 Dose: 12.5 mg Carvedilol (Coreg) 3.125 mg PO Q12 [facility] Colchicine (Colocrys) 0.6 mg PO DAILY [facility] Last Admin: 02/13/18 09:30 Dose: 0.6 mg Digoxin (Digoxin) 0.125 mg PO DAILY [facility] Last Admin: 02/13/18 09:30 Dose: 0.125 mg Enoxaparin Sodium (Lovenox) 40 mg SC DAILY [facility]; Protocol Last Admin: 02/13/18 09:30 Dose: 40 mg Ferrous Sulfate (Feosol) 325 mg PO Q12 [facility] Last Admin: 02/13/18 09:30 Dose: 325 mg Guaifenesin/Dextromethorphan (Robitussin Dm) 5 ml PO Q6 PRN PRN Reason: Cough Milrinone Lactate/Dextrose (Primacor 20mg/100ml D5w) 100 mls @ 8.505 mls/hr IV .[id number] [facility]; Protocol Last Admin: 02/13/18 15:39 Dose: 0.23 mcg/kg/min, 8 mls/hr Ibuprofen (Motrin Tab) 600 mg PO Q6 PRN PRN Reason: Pain, moderate (4-7) Morphine Sulfate (Morphine) 2 mg IVP Q6 PRN PRN Reason: Pain, severe (8-10) Last Admin: 02/13/18 11:47 Dose: 2 mg - Labs Labs: 02/12/18 06:15 02/12/18 06:15 PT 14.9 Seconds (9.8-13.1) H 02/11/18 17:05 INR 1.3 02/11/18 17:05 APTT 35.8 Seconds (25.6-37.1) 02/11/18 17:05 Assessment and Plan - Assessment and Plan (Free Text) Assessment: Patient was personally seen and examined by me in rounds with residents. Available labs and diagnostic data reviewed. Case, Patient's condition and management plan discussed with residents in rounds. Agree with resident's progress note. Plan: As ordered.
[2018-02-13] MEDS: Digoxin 125 mcg (0.125 mg) Tab PO SCH (09:30)
[2018-02-13] MEDS: Enoxaparin 40 mg Syringe SC SCH (09:30)
--- NOTE | 2018-02-13 17:49 | CP.PCM.PN ---
Subjective - Date & Time of Evaluation Date of Evaluation: 02/13/18 Time of Evaluation: 17:49 - Subjective Subjective: less sob and edema. bp much improved. Objective - Vital Signs/Intake and Output Vital Signs (last 24 hours): Temp Pulse Resp BP Pulse Ox 96.0 F L 82 18 96/68 L 99 02/13/18 15:44 02/13/18 15:44 02/13/18 15:44 02/13/18 15:44 02/13/18 15:44 Intake and Output: 02/13/18 02/13/18 06:59 18:59 Intake Total 100 Balance 100 - Medications Medications: Current Medications Acetaminophen (Tylenol 325mg Tab) 650 mg PO Q6 PRN PRN Reason: Fever >100.4 F Carvedilol (Coreg) 12.5 mg PO Q12 [facility] Last Admin: 02/13/18 09:29 Dose: 12.5 mg Colchicine (Colocrys) 0.6 mg PO DAILY [facility] Last Admin: 02/13/18 09:30 Dose: 0.6 mg Digoxin (Digoxin) 0.125 mg PO DAILY [facility] Last Admin: 02/13/18 09:30 Dose: 0.125 mg Enoxaparin Sodium (Lovenox) 40 mg SC DAILY [facility]; Protocol Last Admin: 02/13/18 09:30 Dose: 40 mg Ferrous Sulfate (Feosol) 325 mg PO Q12 [facility] Last Admin: 02/13/18 09:30 Dose: 325 mg Guaifenesin/Dextromethorphan (Robitussin Dm) 5 ml PO Q6 PRN PRN Reason: Cough Milrinone Lactate/Dextrose (Primacor 20mg/100ml D5w) 100 mls @ 8.505 mls/hr IV .[id number] [facility]; Protocol Last Admin: 02/13/18 15:39 Dose: 0.23 mcg/kg/min, 8 mls/hr Ibuprofen (Motrin Tab) 600 mg PO Q6 PRN PRN Reason: Pain, moderate (4-7) Morphine Sulfate (Morphine) 2 mg IVP Q6 PRN PRN Reason: Pain, severe (8-10) Last Admin: 02/13/18 11:47 Dose: 2 mg - Labs Labs: 02/12/18 06:15 02/12/18 06:15 PT 14.9 Seconds (9.8-13.1) H 02/11/18 17:05 INR 1.3 02/11/18 17:05 APTT 35.8 Seconds (25.6-37.1) 02/11/18 17:05 - Constitutional Appears: Well - Head Exam Head Exam: ATRAUMATIC, NORMAL INSPECTION, NORMOCEPHALIC - Eye Exam Eye Exam: EOMI, Normal appearance, PERRL. absent: Conjunctival injection, Nystagmus, Periorbital swelling, Periorbital tenderness, Scleral icterus Pupil Exam: NORMAL ACCOMODATION, PERRL - ENT Exam ENT Exam: Mucous Membranes Moist, Normal Exam. absent: Mucous Membranes Dry, Normal External Ear Exam, Normal Oropharynx, TM's Normal Bilaterally - Neck Exam Neck Exam: Full ROM, Normal Inspection. absent: Lymphadenopathy, Meningismus, Tenderness, Thyromegaly - Respiratory Exam Respiratory Exam: Rales, NORMAL BREATHING PATTERN. absent: Accessory Muscle Use, Chest Wall Tenderness, Decreased Breath Sounds, Clear to Ausculation Bilateral, Prolonged Expiratory Phase, Rhonchi, Wheezes, Respiratory Distress, Stridor - Cardiovascular Exam Cardiovascular Exam: REGULAR RHYTHM, +S1, +S2, Murmur. absent: Bradycardia, Tachycardia, Clicks, Diastolic murmur, Gallop, Irregular Rhythm, JVD, RRR, Rubs, +S4 - GI/Abdominal Exam GI & Abdominal Exam: Soft, Normal Bowel Sounds. absent: Bruit, Distended, Firm, Guarding, Rigid, Tenderness, Diminished Bowel Sounds, Hernia, Hyperactive Bowel Sounds, Hypoactive Bowel Sounds, Organomegaly, Pulsatile Mass, Rebound, Mass - Rectal Exam Rectal Exam: Deferred - Extremities Exam Extremities Exam: Full ROM, Normal Capillary Refill, Pedal Edema. absent: Joint Swelling - Back Exam Back Exam: NORMAL INSPECTION - Neurological Exam Neurological Exam: Alert, Awake, CN II-XII Intact, Normal Gait, Oriented x3 - Psychiatric Exam Psychiatric exam: Normal Affect, Normal Mood. absent: Agitated, Anxious, Depressed, Flat Affect, Homicidal Ideation, Manic, Suicidal Ideation - Skin Skin Exam: Dry, Intact, Normal Color, Warm. absent: Abrasion, Cyanosis, Diaphoretic, Erythema, Mottled, Pallor, Pallor, Petechiae, Rash, Urticaria, Vesi cles Assessment and Plan (1) Acute on chronic systolic and diastolic heart failure, NYHA class 4 Status: Acute (2) Non-ischemic cardiomyopathy Status: Acute (3) Essential (primary) hypertension Status: Chronic - Assessment and Plan (Free Text) Plan: increase coreg to map of 60 to 65. cont diuretics
[2018-02-14] MEDS: guaiFENesin DM 100 mg-10 mg/5 ml UD PO PRN ×3 (01:23→17:09)
[2018-02-14] MEDS: Milrinone 20mg/100ml D5W 100 ML IV SCH ×3 (04:34→20:04)
[2018-02-14 06:00] LABS: HEMOGLOBIN 12.8 g/dL (12.0-18.0); MEAN CELL VOLUME 74.4 fl (80.0-94.0); MEAN CORPUSCULAR HEMOGLOBIN 23.9 pg (27.0-31.0); MEAN CORPUSCULAR HGB CONC 32.1 g/dL (33.0-37.0); RBC 5.35 Mil/uL (4.40-5.90); RED CELL DISTRIBUTION WIDTH 23.5 % (11.5-14.5); WHITE BLOOD COUNT 8.1 K/uL (4.8-10.8)
[2018-02-14 06:22] LABS: B-TYPE NATRIURETIC PEPTIDE 1190 pg/ml (0-450)
[2018-02-14 06:24] LABS: ALB/GLOB RATIO 0.8 (1.0-2.1); ALBUMIN 3.9 g/dL (3.5-5.0); ALT/SGPT 32 U/L (21-72); AST/SGOT 33 U/L (17-59); BLOOD UREA NITROGEN 29 mg/dl (9-20); CALCIUM 9.3 mg/dL (8.4-10.2); GFR NON-AFRICAN AMERICAN 59
--- NOTE | 2018-02-14 07:45 | CP.PCM.PN ---
<Amadeo Bourgeois - Last Filed: 02/14/18 11:17> Subjective - Date & Time of Evaluation Date of Evaluation: 02/14/18 Time of Evaluation: 07:45 - Subjective Subjective: 47 y/o M seen and examined by bedside with Dr Simmons. Pt reports still feeling out of breath but was able to walk to the bathroom. Pt afebrile, tolerating Po iwht NO acute events overnight. Objective - Vital Signs/Intake and Output Vital Signs (last 24 hours): Temp Pulse Resp BP Pulse Ox 97 F L 62 20 101/76 98 02/14/18 04:56 02/14/18 04:56 02/14/18 04:56 02/14/18 04:56 02/14/18 04:56 Intake and Output: 02/14/18 02/14/18 06:59 18:59 Intake Total 100 Balance 100 - Medications Medications: Current Medications Acetaminophen (Tylenol 325mg Tab) 650 mg PO Q6 PRN PRN Reason: Fever >100.4 F Carvedilol (Coreg) 3.125 mg PO Q12 [facility] Last Admin: 02/13/18 21:12 Dose: 3.125 mg Colchicine (Colocrys) 0.6 mg PO DAILY [facility] Last Admin: 02/13/18 09:30 Dose: 0.6 mg Digoxin (Digoxin) 0.125 mg PO DAILY [facility] Last Admin: 02/13/18 09:30 Dose: 0.125 mg Enoxaparin Sodium (Lovenox) 40 mg SC DAILY [facility]; Protocol Last Admin: 02/13/18 09:30 Dose: 40 mg Ferrous Sulfate (Feosol) 325 mg PO Q12 [facility] Last Admin: 02/13/18 21:13 Dose: 325 mg Guaifenesin/Dextromethorphan (Robitussin Dm) 5 ml PO Q6 PRN PRN Reason: Cough Last Admin: 02/14/18 01:23 Dose: 5 ml Milrinone Lactate/Dextrose (Primacor 20mg/100ml D5w) 100 mls @ 8.505 mls/hr IV .[id number] [facility]; Protocol Last Admin: 02/14/18 04:34 Dose: 0.23 mcg/kg/min, 8 mls/hr Ibuprofen (Motrin Tab) 600 mg PO Q6 PRN PRN Reason: Pain, moderate (4-7) Morphine Sulfate (Morphine) 2 mg IVP Q6 PRN PRN Reason: Pain, severe (8-10) Last Admin: 02/14/18 03:40 Dose: 2 mg Spironolactone (Aldactone) 12.5 mg PO BID [facility] - Labs Labs: 02/14/18 05:10 02/14/18 05:10 PT 14.9 Seconds (9.8-13.1) H 02/11/18 17:05 INR 1.3 02/11/18 17:05 APTT 35.8 Seconds (25.6-37.1) 02/11/18 17:05 - Constitutional Appears: No Acute Distress - Respiratory Exam Respiratory Exam: NORMAL BREATHING PATTERN. absent: Rales, Rhonchi - Cardiovascular Exam Cardiovascular Exam: REGULAR RHYTHM, +S1, +S2 - GI/Abdominal Exam GI & Abdominal Exam: Soft, Normal Bowel Sounds. absent: Distended, Tenderness - Extremities Exam Extremities Exam: Pedal Edema. absent: Calf Tenderness - Neurological Exam Neurological Exam: Awake, Oriented x3 Assessment and Plan - Assessment and Plan (Free Text) Assessment: 47 y/o M with a PMHx of congested heart failure and HTN admitted for evaluation and management of acute CHF exacerbation. PLAN: - Afebrile - Bumex iv q12. - daily weight - Pro-BNP trending down - f/u Echocardiogram - Cardiology consult, Dr Nj, input appreciated - Continue management as ordered. <Sarthak Simmons - Last Filed: 02/17/18 07:44> Objective - Vital Signs/Intake and Output Vital Signs (last 24 hours): Temp Pulse Resp BP Pulse Ox 97.6 F 79 20 112/82 100 02/17/18 01:00 02/17/18 01:00 02/17/18 01:00 02/17/18 01:00 02/17/18 01:00 - Medications Medications: Current Medications Acetaminophen (Tylenol 325mg Tab) 650 mg PO Q6 PRN PRN Reason: Fever >100.4 F Last Admin: 02/15/18 17:30 Dose: 650 mg Acetaminophen/Codeine Phosphate (Tylenol/Codeine 300 Mg/30 Mg) 1 tab PO Q6 PRN PRN Reason: Pain, severe (8-10) Last Admin: 02/15/18 20:09 Dose: 1 tab Bumetanide (Bumex) 2 mg IVP BID [facility] Last Admin: 02/16/18 16:30 Dose: 2 mg Carvedilol (Coreg) 25 mg PO Q12 [facility] Last Admin: 02/16/18 21:20 Dose: 25 mg Colchicine (Colocrys) 0.6 mg PO DAILY [facility] Last Admin: 02/16/18 08:25 Dose: 0.6 mg Digoxin (Digoxin) 0.125 mg PO DAILY [facility] Last Admin: 02/16/18 08:25 Dose: 0.125 mg Enoxaparin Sodium (Lovenox) 40 mg SC DAILY [facility]; Protocol Ferrous Sulfate (Feosol) 325 mg PO Q12 [facility] Last Admin: 02/16/18 21:20 Dose: 325 mg Guaifenesin/Dextromethorphan (Robitussin Dm) 5 ml PO Q6 PRN PRN Reason: Cough Last Admin: 02/17/18 04:09 Dose: 5 ml Hydromorphone HCl (Dilaudid) 0.5 mg IVP Q8H PRN PRN Reason: Pain, severe (8-10) Stop: 02/17/18 23:52 Last Admin: 02/17/18 04:09 Dose: 0.5 mg Milrinone Lactate/Dextrose (Primacor 20mg/100ml D5w) 100 mls @ 8.505 mls/hr IV .[id number] [facility]; Protocol Last Admin: 02/16/18 12:03 Dose: 0.23 mcg/kg/min, 8 mls/hr Ibuprofen (Motrin Tab) 600 mg PO Q6 PRN PRN Reason: Pain, moderate (4-7) Morphine Sulfate (Morphine) 2 mg IVP Q6 PRN PRN Reason: Pain, severe (8-10) Last Admin: 02/15/18 08:58 Dose: 2 mg Spironolactone (Aldactone) 12.5 mg PO BID [facility] Last Admin: 02/16/18 16:33 Dose: 12.5 mg - Labs Labs: 02/17/18 04:30 02/17/18 04:30 PT 14.9 Seconds (9.8-13.1) H 02/11/18 17:05 INR 1.3 02/11/18 17:05 APTT 35.8 Seconds (25.6-37.1) 02/11/18 17:05 Assessment and Plan - Assessment and Plan (Free Text) Assessment: Patient was personally seen and examined by me in rounds with residents. Available labs and diagnostic data reviewed. Case, Patient's condition and management plan discussed with residents in rounds. Agree with resident's progress note. Plan: As ordered.
[2018-02-14] MEDS: Enoxaparin 40 mg Syringe SC SCH (09:53)
[2018-02-14] MEDS: Digoxin 125 mcg (0.125 mg) Tab PO SCH (09:55)
[2018-02-15 07:53] LABS: HEMOGLOBIN 12.8 g/dL (12.0-18.0); MEAN CELL VOLUME 74.6 fl (80.0-94.0); MEAN CORPUSCULAR HEMOGLOBIN 23.9 pg (27.0-31.0); MEAN CORPUSCULAR HGB CONC 32.1 g/dL (33.0-37.0); RBC 5.35 Mil/uL (4.40-5.90); RED CELL DISTRIBUTION WIDTH 23.6 % (11.5-14.5); WHITE BLOOD COUNT 7.3 K/uL (4.8-10.8)
[2018-02-15 07:58] LABS: ALB/GLOB RATIO 0.8 (1.0-2.1); ALT/SGPT 31 U/L (21-72); AST/SGOT 29 U/L (17-59); BLOOD UREA NITROGEN 29 mg/dl (9-20); CALCIUM 9.3 mg/dL (8.4-10.2); GFR NON-AFRICAN AMERICAN 54
[2018-02-15 08:01] LABS: B-TYPE NATRIURETIC PEPTIDE 1370 pg/ml (0-450)
[2018-02-15] MEDS: Digoxin 125 mcg (0.125 mg) Tab PO SCH (08:27)
[2018-02-15] MEDS: Enoxaparin 40 mg Syringe SC SCH (08:28)
[2018-02-15] MEDS: guaiFENesin DM 100 mg-10 mg/5 ml UD PO PRN ×2 (08:59→20:16)
[2018-02-15] MEDS: Milrinone 20mg/100ml D5W 100 ML IV SCH ×2 (09:55→21:27)
--- NOTE | 2018-02-15 15:27 | CP.PCM.PN ---
Subjective - Date & Time of Evaluation Date of Evaluation: 02/15/18 Time of Evaluation: 19:23 - Subjective Subjective: PT STATES SOB MUCH IMPROVED. HE IS COMPLAINING OF LLE PAIN AND PRESSURE. Objective - Vital Signs/Intake and Output Vital Signs (last 24 hours): Temp Pulse Resp BP Pulse Ox 97.3 F L 67 16 102/75 100 02/15/18 12:17 02/15/18 12:17 02/15/18 12:17 02/15/18 12:17 02/15/18 12:17 Intake and Output: 02/15/18 02/15/18 06:59 18:59 Intake Total 100 Balance 100 - Medications Medications: Current Medications Acetaminophen (Tylenol 325mg Tab) 650 mg PO Q6 PRN PRN Reason: Fever >100.4 F Bumetanide (Bumex) 2 mg IVP BID [facility] Last Admin: 02/15/18 08:27 Dose: 2 mg Carvedilol (Coreg) 25 mg PO Q12 [facility] Colchicine (Colocrys) 0.6 mg PO DAILY [facility] Last Admin: 02/15/18 08:28 Dose: 0.6 mg Digoxin (Digoxin) 0.125 mg PO DAILY [facility] Last Admin: 02/15/18 08:27 Dose: 0.125 mg Enoxaparin Sodium (Lovenox) 40 mg SC DAILY [facility]; Protocol Last Admin: 02/15/18 08:28 Dose: 40 mg Ferrous Sulfate (Feosol) 325 mg PO Q12 [facility] Last Admin: 02/15/18 08:27 Dose: 325 mg Guaifenesin/Dextromethorphan (Robitussin Dm) 5 ml PO Q6 PRN PRN Reason: Cough Last Admin: 02/15/18 08:59 Dose: 5 ml Milrinone Lactate/Dextrose (Primacor 20mg/100ml D5w) 100 mls @ 8.505 mls/hr IV .[id number] [facility]; Protocol Last Admin: 02/15/18 09:55 Dose: 0.23 mcg/kg/min, 8 mls/hr Ibuprofen (Motrin Tab) 600 mg PO Q6 PRN PRN Reason: Pain, moderate (4-7) Morphine Sulfate (Morphine) 2 mg IVP Q6 PRN PRN Reason: Pain, severe (8-10) Last Admin: 02/15/18 08:58 Dose: 2 mg Spironolactone (Aldactone) 12.5 mg PO BID [facility] Last Admin: 02/15/18 08:28 Dose: 12.5 mg - Labs Labs: 02/15/18 06:00 02/15/18 06:00 PT 14.9 Seconds (9.8-13.1) H 02/11/18 17:05 INR 1.3 02/11/18 17:05 APTT 35.8 Seconds (25.6-37.1) 02/11/18 17:05 - Constitutional Appears: Well - Head Exam Head Exam: ATRAUMATIC, NORMAL INSPECTION, NORMOCEPHALIC - Eye Exam Eye Exam: EOMI, Normal appearance, PERRL. absent: Conjunctival injection, Nystagmus, Periorbital swelling, Periorbital tenderness, Scleral icterus Pupil Exam: NORMAL ACCOMODATION, PERRL - ENT Exam ENT Exam: Mucous Membranes Moist, Normal Exam. absent: Mucous Membranes Dry, Normal External Ear Exam, Normal Oropharynx, TM's Normal Bilaterally - Neck Exam Neck Exam: Full ROM, Normal Inspection. absent: Lymphadenopathy, Meningismus, Tenderness, Thyromegaly - Respiratory Exam Respiratory Exam: Clear to Ausculation Bilateral, NORMAL BREATHING PATTERN. absent: Accessory Muscle Use, Chest Wall Tenderness, Decreased Breath Sounds, Prolonged Expiratory Phase, Rales, Rhonchi, Wheezes, Respiratory Distress, Stridor - Cardiovascular Exam Cardiovascular Exam: REGULAR RHYTHM, +S1, +S2, Murmur. absent: Bradycardia, Tachycardia, Clicks, Diastolic murmur, Gallop, Irregular Rhythm, JVD, RRR, Rubs, +S4 - GI/Abdominal Exam GI & Abdominal Exam: Soft, Normal Bowel Sounds. absent: Bruit, Distended, Firm, Guarding, Rigid, Tenderness, Diminished Bowel Sounds, Hernia, Hyperactive Bowel Sounds, Hypoactive Bowel Sounds, Organomegaly, Pulsatile Mass, Rebound, Mass - Rectal Exam Rectal Exam: Deferred - Extremities Exam Additional comments: LLE 2-3+ edema, RLE 1+ - Back Exam Back Exam: NORMAL INSPECTION - Neurological Exam Neurological Exam: Alert, Awake, CN II-XII Intact, Normal Gait, Oriented x3 - Psychiatric Exam Psychiatric exam: Normal Affect, Normal Mood. absent: Agitated, Anxious, Depressed, Flat Affect, Homicidal Ideation, Manic, Suicidal Ideation - Skin Skin Exam: Dry, Intact, Normal Color, Warm. absent: Abrasion, Cyanosis, Diaphoretic, Erythema, Mottled, Pallor, Pallor, Petechiae, Rash, Urticaria, Vesicles Assessment and Plan (1) Acute on chronic systolic and diastolic heart failure, NYHA class 4 Status: Acute (2) Non-ischemic cardiomyopathy Status: Acute (3) Essential (primary) hypertension Status: Chronic (4) Edema of left lower extremity Status: Acute (5) Acute pain of left lower extremity Status: Acute - Assessment and Plan (Free Text) Plan: LLE SWELLING AND PAIN IS C/W DVT. START LOVENOX Q12 FOR EMPIRIC TREATMENT MONITOR LYTES INCREASE COREG TARGET MAP 60-65 CONT DIURETICS. 65 MIN TOTAL CARE TIME.
[2018-02-15] MEDS ORDERED: Acetaminophen-Codeine 300/30 mg Tab PO PRN (19:00)
[2018-02-15] MEDS ORDERED: Potassium Chloride 20 mEq/15 ml LIQ UD PO ONE (20:00)
[2018-02-15] MEDS: Enoxaparin 120 mg Syringe SC SCH (21:24)
[2018-02-16] MEDS: HYDROmorphone 0.5 mg/0.5 ml ISec IVP PRN ×4 (00:02→22:16)
[2018-02-16 07:07] LABS: HEMOGLOBIN 12.2 g/dL (12.0-18.0); MEAN CELL VOLUME 76.6 fl (80.0-94.0); MEAN CORPUSCULAR HGB CONC 31.3 g/dL (33.0-37.0); RBC 5.09 Mil/uL (4.40-5.90); RED CELL DISTRIBUTION WIDTH 24.4 % (11.5-14.5); WHITE BLOOD COUNT 7.5 K/uL (4.8-10.8)
[2018-02-16 07:29] LABS: B-TYPE NATRIURETIC PEPTIDE 1290 pg/ml (0-450)
[2018-02-16 07:32] LABS: ALB/GLOB RATIO 0.8 (1.0-2.1); ALBUMIN 3.9 g/dL (3.5-5.0); ALT/SGPT 31 U/L (21-72); AST/SGOT 43 U/L (17-59); BLOOD UREA NITROGEN 33 mg/dl (9-20); CALCIUM 9.4 mg/dL (8.4-10.2); GFR NON-AFRICAN AMERICAN 59
[2018-02-16] MEDS: Enoxaparin 120 mg Syringe SC SCH (08:24)
[2018-02-16] MEDS: Digoxin 125 mcg (0.125 mg) Tab PO SCH (08:25)
[2018-02-16] MEDS: Milrinone 20mg/100ml D5W 100 ML IV SCH (12:03)
--- NOTE | 2018-02-16 13:29 | US ---
Date of service: 02/16/2018 PROCEDURE: Bilateral lower extremity venous duplex Doppler. HISTORY: R/O DVT COMPARISON: Bilateral lower extremity venous ultrasound performed 01/03/18 TECHNIQUE: Bilateral common femoral, superficial femoral, popliteal and posterior tibial veins were evaluated. Flow was assessed with color Doppler, compressibility, assessment of phasic flow and augmentation response. FINDINGS: Limited study. COMMON FEMORAL VEIN: Right CFV: Unremarkable. Left CFV: Unremarkable. SUPERFICIAL FEMORAL VEIN: Right SFV: Unremarkable. Left SFV: Unremarkable. POPLITEAL VEIN: Right Popliteal: Unremarkable. Left Popliteal: Unremarkable. POSTERIOR TIBIAL VEIN: Right PTV: Unremarkable. Left PTV: Unremarkable. OTHER FINDINGS: Bilateral calf soft tissue edema. Suboptimal evaluation of popliteal fossa collection best seen on lower extremity ultrasound performed 01/03/18. IMPRESSION: Limited study. Bilateral calf soft tissue edema. No evidence of deep venous thrombosis.Suboptimal evaluation of popliteal fossa collection best seen on lower extremity ultrasound performed 01/03/18.
[2018-02-16] MEDS: guaiFENesin DM 100 mg-10 mg/5 ml UD PO PRN (16:30)
--- NOTE | 2018-02-16 19:57 | CP.PCM.PN ---
Subjective - Date & Time of Evaluation Date of Evaluation: 02/16/18 Time of Evaluation: 19:57 - Subjective Subjective: PT FEELS BETTER. LLE REMAINS PAINFUL. DOPPLERS REVEAL NO DVT. PT WITH HX OF DVT IN LLE. Objective - Vital Signs/Intake and Output Vital Signs (last 24 hours): Temp Pulse Resp BP Pulse Ox 98 F 73 18 118/83 100 02/16/18 16:57 02/16/18 16:57 02/16/18 16:57 02/16/18 16:57 02/16/18 16:57 Intake and Output: 02/16/18 02/17/18 18:59 06:59 Intake Total 100 Balance 100 - Medications Medications: Current Medications Acetaminophen (Tylenol 325mg Tab) 650 mg PO Q6 PRN PRN Reason: Fever >100.4 F Last Admin: 02/15/18 17:30 Dose: 650 mg Acetaminophen/Codeine Phosphate (Tylenol/Codeine 300 Mg/30 Mg) 1 tab PO Q6 PRN PRN Reason: Pain, severe (8-10) Last Admin: 02/15/18 20:09 Dose: 1 tab Bumetanide (Bumex) 2 mg IVP BID [facility] Last Admin: 02/16/18 16:30 Dose: 2 mg Carvedilol (Coreg) 25 mg PO Q12 [facility] Last Admin: 02/16/18 08:25 Dose: 25 mg Colchicine (Colocrys) 0.6 mg PO DAILY [facility] Last Admin: 02/16/18 08:25 Dose: 0.6 mg Digoxin (Digoxin) 0.125 mg PO DAILY [facility] Last Admin: 02/16/18 08:25 Dose: 0.125 mg Enoxaparin Sodium (Lovenox) 115 mg SC Q12 [facility]; Protocol Last Admin: 02/16/18 08:24 Dose: 115 mg Ferrous Sulfate (Feosol) 325 mg PO Q12 [facility] Last Admin: 02/16/18 08:25 Dose: 325 mg Guaifenesin/Dextromethorphan (Robitussin Dm) 5 ml PO Q6 PRN PRN Reason: Cough Last Admin: 02/16/18 16:30 Dose: 5 ml Hydromorphone HCl (Dilaudid) 0.5 mg IVP Q8H PRN PRN Reason: Pain, severe (8-10) Stop: 02/17/18 23:52 Last Admin: 02/16/18 16:29 Dose: 0.5 mg Milrinone Lactate/Dextrose (Primacor 20mg/100ml D5w) 100 mls @ 8.505 mls/hr IV .[id number] [facility]; Protocol Last Admin: 02/16/18 12:03 Dose: 0.23 mcg/kg/min, 8 mls/hr Ibuprofen (Motrin Tab) 600 mg PO Q6 PRN PRN Reason: Pain, moderate (4-7) Morphine Sulfate (Morphine) 2 mg IVP Q6 PRN PRN Reason: Pain, severe (8-10) Last Admin: 02/15/18 08:58 Dose: 2 mg Spironolactone (Aldactone) 12.5 mg PO BID [facility] Last Admin: 02/16/18 16:33 Dose: 12.5 mg - Labs Labs: 02/16/18 05:45 02/16/18 05:45 PT 14.9 Seconds (9.8-13.1) H 02/11/18 17:05 INR 1.3 02/11/18 17:05 APTT 35.8 Seconds (25.6-37.1) 02/11/18 17:05 - Constitutional Appears: Non-toxic, No Acute Distress - Head Exam Head Exam: ATRAUMATIC, NORMAL INSPECTION, NORMOCEPHALIC - Eye Exam Eye Exam: EOMI, Normal appearance, PERRL. absent: Conjunctival injection, Nystagmus, Periorbital swelling, Periorbital tenderness, Scleral icterus Pupil Exam: NORMAL ACCOMODATION, PERRL - ENT Exam ENT Exam: Mucous Membranes Moist, Normal Exam. absent: Mucous Membranes Dry, Normal External Ear Exam, Normal Oropharynx, TM's Normal Bilaterally - Neck Exam Neck Exam: Full ROM, Normal Inspection. absent: Lymphadenopathy, Meningismus, Tenderness, Thyromegaly - Respiratory Exam Respiratory Exam: Clear to Ausculation Bilateral, NORMAL BREATHING PATTERN. absent: Accessory Muscle Use, Chest Wall Tenderness, Decreased Breath Sounds, Prolonged Expiratory Phase, Rales, Rhonchi, Wheezes, Respiratory Distress, Stridor - Cardiovascular Exam Cardiovascular Exam: Diastolic murmur, REGULAR RHYTHM, +S1, +S2, Murmur. a bsent: Bradycardia, Tachycardia, Clicks, Gallop, Irregular Rhythm, JVD, RRR, Rubs, +S4 - GI/Abdominal Exam GI & Abdominal Exam: Soft, Normal Bowel Sounds. absent: Bruit, Distended, Firm, Guarding, Rigid, Tenderness, Diminished Bowel Sounds, Hernia, Hyperactive Bowel Sounds, Hypoactive Bowel Sounds, Organomegaly, Pulsatile Mass, Rebound, Mass - Rectal Exam Rectal Exam: Deferred - Extremities Exam Extremities Exam: Full ROM, Normal Capillary Refill, Tenderness Additional comments: 3+ LLE 1-2+ RLE - Back Exam Back Exam: NORMAL INSPECTION. absent: CVA tenderness (L), CVA tenderness (R), Full ROM, muscle spasm, paraspinal tenderness, rash noted, tenderness, vertebral tenderness - Neurological Exam Neurological Exam: Alert, Awake, CN II-XII Intact, Normal Gait, Oriented x3. absent: Abnormal Gait, Altered, Motor Sensory Deficit, Reflexes Normal - Psychiatric Exam Psychiatric exam: Normal Affect, Normal Mood. absent: Agitated, Anxious, Depressed, Flat Affect, Homicidal Ideation, Manic, Suicidal Ideation - Skin Skin Exam: Dry, Intact, Normal Color, Warm. absent: Abrasion, Cyanosis, Diaph oretic, Erythema, Mottled, Pallor, Pallor, Petechiae, Rash, Urticaria, Vesicles Assessment and Plan (1) Acute on chronic systolic and diastolic heart failure, NYHA class 4 Status: Acute (2) Non-ischemic cardiomyopathy Status: Acute (3) Essential (primary) hypertension Status: Chronic (4) History of DVT of lower extremity Status: Acute (5) Acute pain of left lower extremity Status: Acute (6) Edema of left lower extremity Status: Acute - Assessment and Plan (Free Text) Plan: LOVENOX DECREASED TO PROPHYLACTIC DOSE LE DUPLEX REVIEWED PT TOLERATING COREG HIGH DOSE WILL INCREASE MEDS TO ACHIEVE MAP OF 60-65 IF CR STABLE WILL CONSIDER ACEI THERAPY 55 MIN TOTAL CARE TIME.
[2018-02-17] MEDS: HYDROmorphone 0.5 mg/0.5 ml ISec IVP PRN ×3 (04:09→20:44)
[2018-02-17] MEDS: guaiFENesin DM 100 mg-10 mg/5 ml UD PO PRN (04:09)
[2018-02-17 05:31] LABS: HEMOGLOBIN 12.4 g/dL (12.0-18.0); MEAN CELL VOLUME 74.8 fl (80.0-94.0); MEAN CORPUSCULAR HEMOGLOBIN 23.7 pg (27.0-31.0); MEAN CORPUSCULAR HGB CONC 31.7 g/dL (33.0-37.0); RBC 5.22 Mil/uL (4.40-5.90); WHITE BLOOD COUNT 6.6 K/uL (4.8-10.8)
[2018-02-17 05:38] LABS: ALB/GLOB RATIO 0.8 (1.0-2.1); ALBUMIN 3.8 g/dL (3.5-5.0); ALT/SGPT 24 U/L (21-72); AST/SGOT 36 U/L (17-59); BLOOD UREA NITROGEN 32 mg/dl (9-20); CALCIUM 9.1 mg/dL (8.4-10.2); GFR NON-AFRICAN AMERICAN 59
[2018-02-17] MEDS: Enoxaparin 40 mg Syringe SC SCH (08:57)
[2018-02-17] MEDS: Digoxin 125 mcg (0.125 mg) Tab PO SCH (08:58)
--- NOTE | 2018-02-17 09:24 | PN ---
DATE: 02/15/2018 SUBJECTIVE: The patient seen and examined. Interim events noted. Consults noted and appreciated. The patient remains in progressive care unit, on telemetry monitoring. The patient feels okay. Denies any chest pain or shortness of breath at rest, but very poor exercise tolerance. The patient is passing a lot of urine and ambulatory. PHYSICAL EXAMINATION: GENERAL: The patient is in no acute distress. VITAL SIGNS: Stable. The patient lost 2 pounds, weight now is 248. HEART: S1 and S2, normal, regular. LUNGS: Good bilateral air exchange. ABDOMEN: Soft, nontender. EXTREMITIES: The patient has 3+ pitting edema. No calf swelling, no tenderness. No acute ischemia. CENTRAL NERVOUS SYSTEM: Essentially unchanged. DIAGNOSTIC DATA: Available diagnostic data reviewed. ASSESSMENT AND PLAN: Overall, the patient's medical condition is stable and improving. Plan as ordered. Sarthak Simmons MD
--- NOTE | 2018-02-17 15:02 | PN ---
DATE: 02/17/2018 SUBJECTIVE: The patient seen and examined. Interim events noted. Consults noted and appreciated. The patient remains in progressive care unit on telemetry monitoring. Feels okay. No complaints of generalized weakness or pain. No chest pain or shortness of breath. PHYSICAL EXAMINATION: GENERAL: The patient is in no acute distress. VITAL SIGNS: Stable. HEART: S1 and S2. Normal and regular. LUNGS: Good bilateral air exchange. ABDOMEN: Soft and nontender. EXTREMITIES: The patient still notes edema. CENTRAL NERVOUS SYSTEM: Essentially unchanged. ASSESSMENT AND PLAN: Overall, the patient's general medical condition is stable. Telemetry monitoring does not reveal significant arrhythmia. Plan as ordered. Sarthak Simmons MD
[2018-02-18] MEDS: guaiFENesin DM 100 mg-10 mg/5 ml UD PO PRN ×2 (02:25→22:36)
[2018-02-18] MEDS ORDERED: Morphine 4 MG/ML VIAL IVP ONE (02:26)
[2018-02-18] MEDS: Milrinone 20mg/100ml D5W 100 ML IV SCH ×2 (02:26→15:13)
[2018-02-18 05:39] LABS: ALB/GLOB RATIO 0.8 (1.0-2.1); ALBUMIN 3.9 g/dL (3.5-5.0); ALT/SGPT 26 U/L (21-72); AST/SGOT 34 U/L (17-59); BLOOD UREA NITROGEN 37 mg/dl (9-20); CALCIUM 9.1 mg/dL (8.4-10.2); GFR NON-AFRICAN AMERICAN 54
[2018-02-18 05:42] LABS: HEMOGLOBIN 12.5 g/dL (12.0-18.0); MEAN CELL VOLUME 74.7 fl (80.0-94.0); MEAN CORPUSCULAR HEMOGLOBIN 23.8 pg (27.0-31.0); MEAN CORPUSCULAR HGB CONC 31.9 g/dL (33.0-37.0); RBC 5.26 Mil/uL (4.40-5.90); RED CELL DISTRIBUTION WIDTH 25.4 % (11.5-14.5); WHITE BLOOD COUNT 6.9 K/uL (4.8-10.8)
[2018-02-18] MEDS: Enoxaparin 40 mg Syringe SC SCH (09:37)
--- NOTE | 2018-02-18 09:38 | CP.PCM.PN ---
<Amadeo Bourgeois - Last Filed: 02/18/18 09:38> Subjective - Date & Time of Evaluation Date of Evaluation: 02/18/18 Time of Evaluation: 09:36 - Subjective Subjective: Patient seen and examined this morning with Dr Simmons, patient reports feeling better, less sob, lower extremities pain and edema improving. VSS, no overnight events. Objective - Vital Signs/Intake and Output Vital Signs (last 24 hours): Temp Pulse Resp BP Pulse Ox 97.3 F L 70 20 105/74 100 02/18/18 07:51 02/18/18 07:51 02/18/18 07:51 02/18/18 07:51 02/18/18 07:51 - Medications Medications: Current Medications Acetaminophen (Tylenol 325mg Tab) 650 mg PO Q6 PRN PRN Reason: Fever >100.4 F Last Admin: 02/15/18 17:30 Dose: 650 mg Acetaminophen/Codeine Phosphate (Tylenol/Codeine 300 Mg/30 Mg) 1 tab PO Q6 PRN PRN Reason: Pain, severe (8-10) Last Admin: 02/15/18 20:09 Dose: 1 tab Bumetanide (Bumex) 2 mg IVP BID [facility] Last Admin: 02/17/18 16:44 Dose: 2 mg Carvedilol (Coreg) 25 mg PO Q12 [facility] Last Admin: 02/17/18 20:50 Dose: 25 mg Colchicine (Colocrys) 0.6 mg PO DAILY [facility] Last Admin: 02/17/18 08:58 Dose: 0.6 mg Digoxin (Digoxin) 0.125 mg PO DAILY [facility] Last Admin: 02/17/18 08:58 Dose: 0.125 mg Enoxaparin Sodium (Lovenox) 40 mg SC DAILY [facility]; Protocol Last Admin: 02/17/18 08:57 Dose: 40 mg Ferrous Sulfate (Feosol) 325 mg PO Q12 [facility] Last Admin: 02/17/18 20:50 Dose: 325 mg Guaifenesin/Dextromethorphan (Robitussin Dm) 5 ml PO Q6 PRN PRN Reason: Cough Last Admin: 02/18/18 02:25 Dose: 5 ml Hydromorphone HCl (Dilaudid) 0.5 mg IVP Q8 PRN PRN Reason: Pain, severe (8-10) Milrinone Lactate/Dextrose (Primacor 20mg/100ml D5w) 100 mls @ 8.505 mls/hr IV .[id number] [facility]; Protocol Last Admin: 02/18/18 02:26 Dose: 0.23 mcg/kg/min, 8 mls/hr Ibuprofen (Motrin Tab) 600 mg PO Q6 PRN PRN Reason: Pain, moderate (4-7) Ramipril (Altace) 5 mg PO DAILY [facility] Last Admin: 02/17/18 12:43 Dose: 5 mg Spironolactone (Aldactone) 12.5 mg PO BID [facility] Last Admin: 02/17/18 16:44 Dose: 12.5 mg - Labs Labs: 02/18/18 04:55 02/18/18 04:55 PT 14.9 Seconds (9.8-13.1) H 02/11/18 17:05 INR 1.3 02/11/18 17:05 APTT 35.8 Seconds (25.6-37.1) 02/11/18 17:05 - Constitutional Appears: No Acute Distress - Respiratory Exam Respiratory Exam: Clear to Ausculation Bilateral, NORMAL BREATHING PATTERN. absent: Rales, Rhonchi - Cardiovascular Exam Cardiovascular Exam: REGULAR RHYTHM, +S1, +S2. absent: Tachycardia - GI/Abdominal Exam GI & Abdominal Exam: Soft, Normal Bowel Sounds. absent: Distended, Tenderness - Extremities Exam Extremities Exam: Pedal Edema. absent: Calf Tenderness - Neurological Exam Neurological Exam: Alert, Awake, Oriented x3 Assessment and Plan - Assessment and Plan (Free Text) Assessment: 47 y/o M with a PMHx of congested heart failure and HTN admitted for evaluation and management of acute CHF exacerbation. PLAN: - Afebrile, VSS - daily weight - Pro-BNP trending down - Cardiology consult, Dr Nj, input appreciated - DVT prophylaxis - Continue management as ordered. <Sarthak Simmons - Last Filed: 02/21/18 14:12> Objective - Vital Signs/Intake and Output Vital Signs (last 24 hours): Temp Pulse Resp BP Pulse Ox 97.3 F L 66 18 102/68 98 02/19/18 17:11 02/19/18 17:11 02/19/18 17:11 02/19/18 17:11 02/19/18 17:11 - Labs Labs: 02/19/18 04:51 02/19/18 04:51 PT 14.9 Seconds (9.8-13.1) H 02/11/18 17:05 INR 1.3 02/11/18 17:05 APTT 35.8 Seconds (25.6-37.1) 02/11/18 17:05 Assessment and Plan - Assessment and Plan (Free Text) Assessment: Patient was personally seen and examined by me in rounds with residents. Available labs and diagnostic data reviewed. Case, Patient's condition and management plan discussed with residents in rounds. Agree with resident's progress note. Plan: As ordered.
[2018-02-18] MEDS: Digoxin 125 mcg (0.125 mg) Tab PO SCH (09:48)
--- NOTE | 2018-02-18 15:21 | CP.PCM.PN ---
Subjective - Date & Time of Evaluation Date of Evaluation: 02/18/18 Time of Evaluation: 15:21 Objective - Vital Signs/Intake and Output Vital Signs (last 24 hours): Temp Pulse Resp BP Pulse Ox 97.3 F L 65 20 93/64 L 98 02/18/18 12:22 02/18/18 12:22 02/18/18 12:22 02/18/18 12:22 02/18/18 12:22 Intake and Output: 02/18/18 02/18/18 06:59 18:59 Intake Total 100 Balance 100 - Medications Medications: Current Medications Acetaminophen (Tylenol 325mg Tab) 650 mg PO Q6 PRN PRN Reason: Fever >100.4 F Last Admin: 02/15/18 17:30 Dose: 650 mg Acetaminophen/Codeine Phosphate (Tylenol/Codeine 300 Mg/30 Mg) 1 tab PO Q6 PRN PRN Reason: Pain, severe (8-10) Last Admin: 02/15/18 20:09 Dose: 1 tab Bumetanide (Bumex) 2 mg IVP BID [facility] Last Admin: 02/18/18 09:40 Dose: 2 mg Carvedilol (Coreg) 25 mg PO Q12 [facility] Last Admin: 02/18/18 09:48 Dose: 25 mg Colchicine (Colocrys) 0.6 mg PO DAILY [facility] Last Admin: 02/18/18 09:48 Dose: 0.6 mg Digoxin (Digoxin) 0.125 mg PO DAILY [facility] Last Admin: 02/18/18 09:48 Dose: 0.125 mg Enoxaparin Sodium (Lovenox) 40 mg SC DAILY [facility]; Protocol Last Admin: 02/18/18 09:37 Dose: 40 mg Ferrous Sulfate (Feosol) 325 mg PO Q12 [facility] Last Admin: 02/18/18 09:48 Dose: 325 mg Guaifenesin/Dextromethorphan (Robitussin Dm) 5 ml PO Q6 PRN PRN Reason: Cough Last Admin: 02/18/18 02:25 Dose: 5 ml Hydromorphone HCl (Dilaudid) 0.5 mg IVP Q8 PRN PRN Reason: Pain, severe (8-10) Last Admin: 02/18/18 09:35 Dose: 0.5 mg Milrinone Lactate/Dextrose (Primacor 20mg/100ml D5w) 100 mls @ 8.505 mls/hr IV .[id number] [facility]; Protocol Last Admin: 02/18/18 15:13 Dose: 0.23 mcg/kg/min, 8 mls/hr Ibuprofen (Motrin Tab) 600 mg PO Q6 PRN PRN Reason: Pain, moderate (4-7) Ramipril (Altace) 5 mg PO DAILY [facility] Last Admin: 02/18/18 09:43 Dose: 5 mg Spironolactone (Aldactone) 12.5 mg PO BID [facility] Last Admin: 02/18/18 09:43 Dose: 12.5 mg - Labs Labs: 02/18/18 04:55 02/18/18 04:55 PT 14.9 Seconds (9.8-13.1) H 02/11/18 17:05 INR 1.3 02/11/18 17:05 APTT 35.8 Seconds (25.6-37.1) 02/11/18 17:05 Assessment and Plan (1) Acute on chronic systolic and diastolic heart failure, NYHA class 4 Status: Acute (2) Non-ischemic cardiomyopathy Status: Acute (3) Essential (primary) hypertension Status: Chronic (4) History of DVT of lower extremity Status: Acute (5) Acute pain of left lower extremity Status: Acute (6) Edema of left lower extremity Status: Acute
[2018-02-19] MEDS: Milrinone 20mg/100ml D5W 100 ML IV SCH (04:02)
[2018-02-19 06:32] LABS: HEMOGLOBIN 12.7 g/dL (12.0-18.0); MEAN CELL VOLUME 75.4 fl (80.0-94.0); MEAN CORPUSCULAR HEMOGLOBIN 23.8 pg (27.0-31.0); MEAN CORPUSCULAR HGB CONC 31.5 g/dL (33.0-37.0); RBC 5.35 Mil/uL (4.40-5.90); RED CELL DISTRIBUTION WIDTH 25.5 % (11.5-14.5); WHITE BLOOD COUNT 7.2 K/uL (4.8-10.8)
[2018-02-19 06:41] LABS: ALB/GLOB RATIO 0.8 (1.0-2.1); CALCIUM 9.2 mg/dL (8.4-10.2)
--- NOTE | 2018-02-19 07:29 | CP.PCM.PN ---
<Amadeo Bourgeois - Last Filed: 02/19/18 07:27> Subjective - Date & Time of Evaluation Date of Evaluation: 02/19/18 Time of Evaluation: 07:27 - Subjective Subjective: Patient seen and examined this morning at bed side with Dr Simmons, no overnight events. Patient reports feeling better, edema improving, no pain at this time. Voiding w/o difficulty. Objective - Vital Signs/Intake and Output Vital Signs (last 24 hours): Temp Pulse Resp BP Pulse Ox 97.2 F L 54 L 18 98/65 L 96 02/19/18 05:00 02/19/18 05:00 02/19/18 05:00 02/19/18 05:00 02/19/18 05:00 Intake and Output: 02/19/18 02/19/18 06:59 18:59 Intake Total 1196 Output Total 500 Balance 696 - Medications Medications: Current Medications Acetaminophen (Tylenol 325mg Tab) 650 mg PO Q6 PRN PRN Reason: Fever >100.4 F Last Admin: 02/15/18 17:30 Dose: 650 mg Acetaminophen/Codeine Phosphate (Tylenol/Codeine 300 Mg/30 Mg) 1 tab PO Q6 PRN PRN Reason: Pain, severe (8-10) Last Admin: 02/15/18 20:09 Dose: 1 tab Bumetanide (Bumex) 2 mg IVP BID [facility] Last Admin: 02/18/18 16:17 Dose: 2 mg Carvedilol (Coreg) 25 mg PO Q12 [facility] Last Admin: 02/18/18 22:36 Dose: 25 mg Colchicine (Colocrys) 0.6 mg PO DAILY [facility] Last Admin: 02/18/18 09:48 Dose: 0.6 mg Digoxin (Digoxin) 0.125 mg PO DAILY [facility] Last Admin: 02/18/18 09:48 Dose: 0.125 mg Enoxaparin Sodium (Lovenox) 40 mg SC DAILY [facility]; Protocol Last Admin: 02/18/18 09:37 Dose: 40 mg Ferrous Sulfate (Feosol) 325 mg PO Q12 [facility] Last Admin: 02/18/18 22:37 Dose: 325 mg Guaifenesin/Dextromethorphan (Robitussin Dm) 5 ml PO Q6 PRN PRN Reason: Cough Last Admin: 11/20/18 22:36 Dose: 5 ml Hydromorphone HCl (Dilaudid) 0.5 mg IVP Q8 PRN PRN Reason: Pain, severe (8-10) Last Admin: 02/19/18 00:14 Dose: 0.5 mg Milrinone Lactate/Dextrose (Primacor 20mg/100ml D5w) 100 mls @ 8.505 mls/hr IV .[id number] [facility]; Protocol Last Admin: 02/19/18 04:02 Dose: 0.23 mcg/kg/min, 8 mls/hr Ibuprofen (Motrin Tab) 600 mg PO Q6 PRN PRN Reason: Pain, moderate (4-7) Ramipril (Altace) 5 mg PO DAILY [facility] Last Admin: 02/18/18 09:43 Dose: 5 mg Spironolactone (Aldactone) 12.5 mg PO BID [facility] Last Admin: 02/18/18 16:17 Dose: 12.5 mg - Labs Labs: 02/19/18 04:51 02/19/18 04:51 PT 14.9 Seconds (9.8-13.1) H 02/11/18 17:05 INR 1.3 02/11/18 17:05 APTT 35.8 Seconds (25.6-37.1) 02/11/18 17:05 - Constitutional Appears: No Acute Distress - Respiratory Exam Respiratory Exam: Clear to Ausculation Bilateral, NORMAL BREATHING PATTERN - Cardiovascular Exam Cardiovascular Exam: REGULAR RHYTHM, +S1, +S2 - GI/Abdominal Exam GI & Abdominal Exam: Soft, Normal Bowel Sounds. absent: Distended, Tenderness - Extremities Exam Extremities Exam: Pedal Edema (mild, improving). absent: Calf Tenderness - Neurological Exam Neurological Exam: Awake, Oriented x3 Assessment and Plan - Assessment and Plan (Free Text) Assessment: 47 y/o M with a PMHx of CHF and HTN admitted for evaluation and management of acute CHF exacerbation. PLAN: - VSS - daily weight - Pro-BNP trending down - Cardiology consult, Dr Nj, input appreciated - DVT prophylaxis - Continue management as ordered. <Sarthak Simmons - Last Filed: 02/21/18 14:11> Objective - Vital Signs/Intake and Output Vital Signs (last 24 hours): Temp Pulse Resp BP Pulse Ox 97.3 F L 66 18 102/68 98 02/19/18 17:11 02/19/18 17:11 02/19/18 17:11 02/19/18 17:11 02/19/18 17:11 - Labs Labs: 02/19/18 04:51 02/19/18 04:51 PT 14.9 Seconds (9.8-13.1) H 02/11/18 17:05 INR 1.3 02/11/18 17:05 APTT 35.8 Seconds (25.6-37.1) 02/11/18 17:05 Assessment and Plan - Assessment and Plan (Free Text) Assessment: Patient was personally seen and examined by me in rounds with residents. Available labs and diagnostic data reviewed. Case, Patient's condition and management plan discussed with residents in rounds. Agree with resident's progress note. Plan: As ordered.
[2018-02-19] MEDS: Enoxaparin 40 mg Syringe SC SCH (09:07)
[2018-02-19] MEDS: Digoxin 125 mcg (0.125 mg) Tab PO SCH (09:08)
[2018-02-19 09:15] VITALS: PULSE 64
[2018-02-19 13:13] VITALS: PULSE 66
--- NOTE | 2018-02-19 14:56 | CP.PCM.PCO ---
Assessment & Plan - Assessment and Plan (Free Text) Assessment: pt. feels well this morning, back to baseline, denies sob, cp, palpitations, requesting to go home today Increase in serum cr noted 2.3, and notified, pt. was recently started on DILIP pt. cleared for discharge to Home today by , pt. instructed to stop DILIP (discontinued), cont. lasix 40 mg po bid x 2 days then hold on Saturday and Saturday followed by repeat labs on Saturday Above dw
[2018-02-19 17:12] VITALS: BP 102/68; RESP 18; TEMP 97.3; O2SAT 98
== END 2018-02-19 17:40 | disposition home or self-care (01) | DRG 293 ==
LOC: H.ER 16:37 → H.ERHOLD 18:27 → H.TEL 02-12 11:33
PROVIDERS: ADMIT Internal Medicine; ATTEND Internal Medicine
DX: I11.0 Hypertensive heart disease with heart failure (principal); I50.43 Acute on chronic combined systolic (congestive) and diastolic (congestive) heart failure; I50.84 End stage heart failure; I42.0 Dilated cardiomyopathy; Z86.718 Personal history of other venous thrombosis and embolism; Z95.810 Presence of automatic (implantable) cardiac defibrillator; M10.9 Gout, unspecified; Z76.82 Awaiting organ transplant status; Z87.891 Personal history of nicotine dependence